=== PATIENT | female | born 1970 | race Caucasian/White ===

== ENCOUNTER → 2017-10-21 00:23 | Outpatient (CLI) | payer OTHER, SELFPAY ==
--- NOTE | 2017-10-21 15:55 | DI.REPORT_ITS ---
SYMPTOMS/DIAGNOSIS: HISTORY OF HYPERPARATHYROIDISM, Z86.39, HYPERCALCEMIA DEXA SCAN WITH [place]: The [place] image shows no evidence of compression fractures. The bone mineral density measurements of the lumbar spine correspond to a total T score of 0.7, in the normal range. The bone mineral density measurements of the left hip correspond to a total T score of 1.1 and a femoral neck T score of 0, in the normal range. The bone mineral density measurements of the left forearm correspond to a total T score of -0.6 and a T score of the distal third of -1.3 , in the osteopenic range. IMPRESSION: Mild osteopenia of the left forearm. Normal bone mineral density of the lumbar spine and left hip.
== END ==
PROVIDERS: PCP Family Medicine; Visit Provider Family Medicine
DX: M85.88 Other specified disorders of bone density and structure, other site (principal); E83.52 Hypercalcemia; Z86.39 Personal history of other endocrine, nutritional and metabolic disease
CPT/HCPCS: 77080

== ENCOUNTER 2017-11-23 01:29 | Outpatient (CLI) | payer OTHER, SELFPAY ==
--- NOTE | 2017-11-23 10:20 | DI.MRI_ITS ---
SYMPTOM/DIAGNOSIS: INTERNAL DERANGEMENT RT KNEE M23.91, ? MMT RIGHT KNEE MRI 11/23 MRI examination of the knee was performed according to the usual protocol. Note is made of an apparent subchondral cyst of the central portion of the proximal tibia. There is articular cartilage thinning of medial tibial femoral joint and patellofemoral joint particularly the medial and inferior portions of patellofemoral joint. Mild subchondral signal changes are noted in medial femoral condyle and medial tibial plateau presumably associated with degenerative change. No definite meniscal tear is seen. No cruciate ligament tear is seen. No significant collateral ligament injury identified. There is abnormal signal in inferior lateral patellar retinaculum which may represent a small tear or focus of inflammation. CONCLUSION: Degenerative changes involving patellofemoral joint and medial tibial femoral joint as described above. Question small focal tear of inferior lateral patellar retinaculum vs focal inflammation at this site.
== END 2017-11-23 01:49 ==
PROVIDERS: PCP Family Medicine; Visit Provider Student in an Organized Health Care Education/Training Program
DX: M23.91 Unspecified internal derangement of right knee (principal); M17.11 Unilateral primary osteoarthritis, right knee; M85.40 Solitary bone cyst, unspecified site
CPT/HCPCS: 73721

== ENCOUNTER 2017-12-27 14:37 | Outpatient (CLI) | payer OTHER, SELFPAY ==
--- NOTE | 2017-12-27 13:57 | DI.RAD_ITS ---
SYMPTOMS/DIAGNOSIS: RT KNEE PAIN RIGHT KNEE: Three views. Mild periarticular spurring is seen in the lateral femoral tibial joint and the patellofemoral joint. There is mild narrowing of the medial femoral tibial joint space. No acute fracture or dislocation is seen. There are densities seen in the suprapatellar joint consistent with loose bodies. No acute fracture or dislocation is identified. IMPRESSION: Mild degenerative changes of the right knee. Loose bodies within the joint space.
== END 2017-12-27 14:57 ==
PROVIDERS: PCP Family Medicine; Visit Provider Physician Assistant
DX: M25.561 Pain in right knee (principal); M17.11 Unilateral primary osteoarthritis, right knee; M23.41 Loose body in knee, right knee
CPT/HCPCS: 73562

== ENCOUNTER 2018-02-01 07:01 | Day surgery (SDC) | payer OTHER, SELFPAY ==
--- NOTE | 2018-02-01 06:54 | W.COLOREPORT ---
Date of service: 02/01/18 Time of Service: 08:48 Colonoscopy Report Date of procedure: 02/01/18 Pre-op diagnosis general: Screening colonoscopy Post-op diagnosis procedure note: other (diverticulosis) Procedure: Colonoscopy Surgeon: Aurora Walsh Anesthesia proc note operative: MAC (Elissa Mckee, CREDIT REVIEW MANAGER/ ASA 2) Estimated blood loss (mL): 0 Pathology: none sent Complications: None Disposition: same day Indications: Mrs. Turcios is a pleasant 48-year-old female who was seen in the office for a screening colonoscopy. This will be her first colonoscopy. Risks, benefits, complications were reviewed with her and she wished to proceed. No guarantees were given or implied. Prep: Miralax/Dulcolax Procedure Start Time: :48 Procedure End Time: :09 Retraction Time: 9 minutes Findings: Diverticulosis of descending and sigmoid colon. Procedure Description: After informed consent was obtained the patient was taken to the procedure room and placed in a left decubitous position. Monitors were applied and a time out was done. The patients name, date of , procedure, allergies to medications and metal in their body was reviewed. The patient was then sedated. Once sedated and comfortable a rectal exam was done. External exam was normal. Internal exam revealed a normal sphincter tone and no palpable masses. The scope was then introduced and retroflexed. No internal hemorrhoids were identified. The scope was then advanced to the cecum without difficulty. She did become bradycardiac as the scope was being advanced and she was given robinal and atropin. The TI and appendiceal orifice were identified. The prep was adequate. The scope was then slowly retracted over 9 minutes back into the rectum. The scope was removed and the patient was woken up and taken back to Same day surgery in stable condition. The patient tolerated the procedure well and there were no immediate complications. Follow up: The patient should follow up in 10 years unless they develop changes in bowel habits or other new gastrointestinal complaints.
--- NOTE | 2018-02-01 06:57 | COLE_ITS ---
Date of service: 02/01/18 Time of Service: 08:48 Colonoscopy Report Date of procedure: 02/01/18 Pre-op diagnosis general: Screening colonoscopy Post-op diagnosis procedure note: other (diverticulosis) Procedure: Colonoscopy Surgeon: Aurora Walsh Anesthesia proc note operative: MAC (Elissa Mckee, LEGAL REFEREE/ ASA 2) Estimated blood loss (mL): 0 Pathology: none sent Complications: None Disposition: same day Indications: Mrs. Turcios is a pleasant 48-year-old female who was seen in the office for a screening colonoscopy. This will be her first colonoscopy. Risks , benefits, complications were reviewed with her and she wished to proceed. No guarantees were given or implied. Prep: Miralax/Dulcolax Procedure Start Time: :48 Procedure End Time: :09 Retraction Time: 9 minutes Findings: Diverticulosis of descending and sigmoid colon. Procedure Description: After informed consent was obtained the patient was taken to the procedure room and placed in a left decubitous position. Monitors were applied and a time out was done. The patients name, date of , procedure, allergies to medications and metal in their body was reviewed. The patient was then sedated. Once sedated and comfortable a rectal exam was done. External exam was normal. Internal exam revealed a normal sphincter tone and no palpable masses. The scope was then introduced and retroflexed. No internal hemorrhoids were identified. The scope was then advanced to the cecum without difficulty. She did become bradycardiac as the scope was being advanced and she was given robinal and atropin. The TI and appendiceal orifice were identified. The prep was adequate. The scope was then slowly retracted over 9 minutes back into the rectum. The scope was removed and the patient was woken up and taken back to Same day surgery in stable condition. The patient tolerated the procedure well and there were no immediate complications. Follow up: The patient should follow up in 10 years unless they develop changes in bowel habits or other new gastrointestinal complaints.
--- NOTE | 2018-02-01 06:58 | PDOC.DSDIS_ITS ---
Discharge Plan Disposition Patient Disposition: HOME Condition: Good Discharge Details Reason For Visit: colonoscopy Attending Provider: Aurora Walsh Primary Care Provider: David Domingo Home Meds and New Rx's Prescriptions: Continue atenolol 50 MG tablet 50 mg PO DAILY Qty: 90 RF: 4 ibuprofen 200 mg Tablet 200 - 800 mg PO QID PRNRF: 0 Discharge Instructions Instructions: Colonoscopy (DC), Diverticulosis (DC) Additional Instructions: Findings: Diverticulosis of descending and sigmoid colon Follow up: 10 years New Medications: none Please call if you develop: fevers >101.5 Nausea or Vomiting Abdominal pain that is not transient 1. Because there will be medication in your system for the next 24 hours, you may feel a little sleepy. Your coordination will be affected. Therefore: a. Do not drive or operate dangerous equipment for 24 hours. b. Do not drink alcohol beverages for 24 hours (not even beer). c. Plan to go home and rest for the day. 2. Generally there are no restrictions on your activity after a day or so has gone by, but you may feel a bit fatigued for a few days. 3 After you arrive home you may have a light meal and return to a normal diet as you can tolerate it without feeling sick to your stomach. 4. After surgery, you may feel pain or discomfort. This should be only transient , but if it persists please contact your doctor. 5. If there are any questions regarding the findings of your procedure, please feel free to contact your doctor. 6. If you are unable to contact your doctor with a problem, contact the hospital at [phone]. 7. Continue all your regular medications unless directed otherwise. I understand the above instructions and have no questions. Signature of Patient or Responsible Adult Escort Date/Time Name of Responsible Adult Escort Signature of Nurse Date/Time Activity:: Activity as Tolerated Diet:: high fiber diet Discharge Orders Discharge Orders: Discharge Order (Routine); Ordered 02/01/18 Ordered By: Aurora Walsh DS: Diagnosis Discharge Diagnosis (1) S/P colonoscopy: Status: Acute (2) Diverticulosis: Status: Acute
--- NOTE | 2018-02-01 06:58 | W.PM.HP.N ---
Assessment and Plan (1) Encounter for screening colonoscopy: Current visit: Yes Status: Acute P\\ Colonoscopy under sedation Risks, benefits and complications have been reviewed. Complications include but are not limited to bleeding, pain, perforation, missed small lesion/polyp, sore throat, aspiration and adverse reaction to the medications. Questions were entertained and answered to their satisfaction and they wished to proceed. No guarantees were given or implied. Joy is here with her Brian to discuss a Screening Colonoscopy. This is her first Colonoscopy. She denies any melena, hematochezia, abdominal pain, unintentional weight loss, changes in bowel habits or family history of colon cancer. 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 pets and animals: No Smoking/Tobacco Use Status: Never alcohol intake: current alcohol intake frequency: a few times a month substance use type: does not use Surgical History Hysterectomy Meds Home Medications Medication Instructions Recorded Confirmed Type atenolol 50 mg PO DAILY #90 tab 08/23/17 02/01/18 Rx ibuprofen 200 - 800 mg PO QID PRN 01/28/18 02/01/18 History Allergies Allergy/AdvReac Type Severity Reaction Status Date / Time No Known Allergies Allergy Unverified 02/01/18 07:14 Exam Resp Effort & Inspection: normal respiratory effort Auscultation: clear to auscultation bilaterally Cardio Rate: regular rate Rhythm: regular rhythm Heart Sounds: no click, no gallops, no murmurs and no rubs
--- NOTE | 2018-02-01 07:01 | HPE_ITS ---
Assessment and Plan (1) Encounter for screening colonoscopy: Current visit: Yes Status: Acute P\\ Colonoscopy under sedation Risks, benefits and complications have been reviewed. Complications include but are not limited to bleeding, pain, perforation, missed small lesion/ polyp, sore throat, aspiration and adverse reaction to the medications. Questions were entertained and answered to their satisfaction and they wished to proceed. No guarantees were given or implied. Joy is here with her Brian to discuss a Screening Colonoscopy. This is her first Colonoscopy. She denies any melena, hematochezia, abdominal pain, unintentional weight loss, changes in bowel habits or family history of colon cancer. 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 pets and animals: No Smoking/Tobacco Use Status: Never alcohol intake: current alcohol intake frequency: a few times a month substance use type: does not use Surgical History Hysterectomy Meds Home Medications Medication Instructions Recorded Confirmed Type atenolol 50 mg PO DAILY #90 tab 08/23/17 02/01/18 Rx ibuprofen 200 - 800 mg PO QID PRN 01/28/18 02/01/18 History Allergies Allergy/AdvReac Type Severity Reaction Status Date / Time No Known Allergies Allergy Unverified 02/01/18 07:14 Exam Resp Effort & Inspection: normal respiratory effort Auscultation: clear to auscultation bilaterally Cardio Rate: regular rate Rhythm: regular rhythm Heart Sounds: no click, no gallops, no murmurs and no rubs
[2018-02-01 07:15] VITALS: BP 146/97; PULSE 53; RESP 16; TEMP 37.1; O2SAT 99
[2018-02-01] MEDS: Lactated Ringers 1,000 ML 80 ML IV (07:34)
[2018-02-01 09:45] VITALS: BP 119/77; PULSE 85; RESP 16; TEMP 37.1; O2SAT 99
== END 2018-02-01 10:17 | disposition home or self-care (01) ==
LOC: SUR 07:03
PROVIDERS: PCP Family Medicine; Visit Provider Surgery
PROC: 0DJD8ZZ Inspection of Lower Intestinal Tract, Via Natural or Artificial Opening Endoscopic (ICD-10-PCS; CPT 45378; principal; 2018-02-01 08:30)
DX: Z12.11 Encounter for screening for malignant neoplasm of colon (principal); R00.1 Bradycardia, unspecified; K57.30 Diverticulosis of large intestine without perforation or abscess without bleeding; I10 Essential (primary) hypertension
CPT/HCPCS: 45378; NC

== ENCOUNTER 2018-08-03 09:40 | Outpatient (CLI) | payer OTHER, SELFPAY ==
--- NOTE | 2018-08-03 09:37 | DI.RAD_ITS ---
SYMPTOM/DIAGNOSIS: OA RT KNEE BILATERAL LOWER EXTREMITIES: AP views of the lower extremities were obtained for leg length determination. Mild degenerative changes noted in both knees and hips.
== END 2018-08-03 10:00 ==
PROVIDERS: PCP Family Medicine; Visit Provider Student in an Organized Health Care Education/Training Program
DX: M17.0 Bilateral primary osteoarthritis of knee (principal); M16.0 Bilateral primary osteoarthritis of hip
CPT/HCPCS: 77073

== ENCOUNTER 2018-08-16 14:52 | Outpatient (CLI) | payer OTHER, SELFPAY ==
[2018-08-16 15:23] LABS: HCT 40.2 % (36.0-46.0); HGB 13.3 g/dL (12.0-15.5); Mean Corp. HGB Concentration 33.1 g/dL (32.0-36.0); Mean Corpuscular Hemoglobin 31.3 pg (27.0-33.0); Mean Corpuscular Volume 94.6 fL (80-95); Platelet Count 320 x1000/uL (130-400); RBC 4.25 m/cumm (4.00-5.20); White Blood Cell Count 6.97 k/cumm (4.4-10.8)
[2018-08-16 16:13] LABS: Anion Gap 10.1 mmol/L (3-11); BUN 13 mg/dL (7-18); CO2 26.9 mmol/L (21.0-32.0); CREATININE 1.02 mg/dL (0.55-1.02); Calcium 9.5 mg/dL (8.5-10.1); Chloride 103 mmol/L (98-107); Estimated GFR 57.36 (mL/min/1.73m2); Glucose 95 mg/dL (70-100); Potassium 4.3 mmol/L (3.5-5.1); Sodium 140 mmol/L (136-145)
== END 2018-08-16 15:12 ==
LOC: LBO 14:52 → DSU 14:59
PROVIDERS: PCP Family Medicine; Visit Provider Student in an Organized Health Care Education/Training Program
DX: M25.561 Pain in right knee (principal); M17.11 Unilateral primary osteoarthritis, right knee; Z01.812 Encounter for preprocedural laboratory examination; Z01.818 Encounter for other preprocedural examination
CPT/HCPCS: 36415; 80048; 85027

== ENCOUNTER 2018-08-30 06:04 | Observation (INO) | payer OTHER, SELFPAY ==
[2018-08-30] VITALS (13 sets, daily range): BP systolic 104–152; BP diastolic 67–100; PULSE 52–73; RESP 12–19; TEMP 36.5–37; O2SAT 97–100
[2018-08-30] MEDS: oxyCODONE-CR 10 MG TABCR PO (06:44)
[2018-08-30] MEDS: Gabapentin 300 MG CAP PO (06:45)
[2018-08-30] MEDS: Celecoxib 200 MG CAP 400 MG PO (06:45)
[2018-08-30] MEDS: Acetaminophen 500 MG TAB 1000 MG PO ×2 (06:45→13:25)
[2018-08-30] MEDS: Lactated Ringers 1,000 ML 80 ML IV ×2 (06:46→11:03)
[2018-08-30] MEDS: Bupivacaine LIPOSOME/PF 133 MG/10 ML VIAL IJ ×2 (07:20→08:45)
[2018-08-30] MEDS: Bupivacaine 0.25% Pres-Free 10 ML VIAL (07:20)
[2018-08-30] MEDS: ceFAZolin 2 GM/50 ML BAG IVPB (07:32)
[2018-08-30] MEDS: Ketorolac 30 MG/ML VIAL (08:45)
[2018-08-30] MEDS: Normal Saline 20 ML VIAL (08:45)
[2018-08-30] MEDS: Bupivacaine 0.25% Pres-Free 30 ML VIAL (08:45)
--- NOTE | 2018-08-30 11:16 | W.PM.OP ---
Date of service: 08/30/18 Time of Service: 10:16 Operative Note DATE OF PROCEDURE: 08/30/18 PRE-OP DIAGNOSIS: Right knee osteoarthritis POST-OP DIAGNOSIS: same PROCEDURE: Right Total Knee Replacement SURGEON: Taj Arellano PRESS BREAKER: Debra Hall ANESTHESIA: regional and spinal ESTIMATED BLOOD LOSS: 150 PATHOLOGY: none sent TOURNIQUET TIME: 33 COMPLICATIONS: None Patient was transported to: PACU Patient's condition: stable Implants: 1. Depuy Attune Posterior Stabilized Femoral Component, Size 5 narrow 2. Depuy Attune Fixed Platform Tibial Component, Size 3 3. Depuy Attune 5x5 mm fixed, Stabilized Poly 4. Depuy Attune Patellar Component, Size 32 mm Indications: I have seen Dinora in clinic for symptoms of RIGHT knee arthritis, confirmed with radiographic findings. Dinora has exhausted nonoperative methods and was having significant limitations in daily function and desired better function and less pain. I discussed the technical details of a knee replacement. I explained the risks of the procedure to include, but not limited to, bleeding, infection, pain, stiffness, fracture, damage to nerves and vessels, damage to muscles and tendons, loosening, need for repeat procedure, blood clot and cardiopulmonary demise. Despite these risks, Dinora elected to proceed. Findings: There was full-thickness cartilage loss over the medial femur and an area of the medial tibia as well as global chondromalacia of the lateral trochlea. Procedure Description: Dinora was greeted in the preoperative holding area where the correct side was identified and marked. The consent was reviewed with the patient and signed. The history and physical was updated. All questions were answered. Preoperative mediacations were administered: Acetaminophen 1000mg, Celebrex 400mg, Gabapentin 300mg, and Oxycontin 10mg. An adductor canal block was then administered by the anesthesia team in the PACU. Dinora was taken back to the operating room. A spinal anesthestic was then administered. The patient was placed into the supine position on the operating room table. A nonsterile tourniquet was placed high onto the leg but only used for cementing. Posts were placed for positioning during the procedure. All bony prominences were well padded. Prophylactic antibiotics in the form of cefazolin were administered. 1g of Tranxemic Acid was given intravenously within 30 minutes of incision. The right leg was then prepped with Chloraprep and draped in a standard fashion with impervious stockinette and extremity drape with Iodine impregnated skin protection. A timeout to confirm correct identity, side and site, procedure, allergies, anesthesia, and medical concerns was performed. With the knee in some flexion, a midline incision was made overlying the knee. Full thickness skin flaps were raised once the extensor mechanism was encountered. These were raised medially and laterally. Any bleeding was controlled with electrocautery. Once the extensor mechanism was fully exposed, a medial parapatellar arthrotomy was performed in a flexed position. All bleeding from the arthrotomy and the geniculate arteries was coagulated. A medial subperiosteal peel was performed with electrocautery to the midcoronal plane. The fat pad was removed while keeping the patellar tendon protected. The anterior distal femur synovium was removed for later visualization. The ACL and PCL were resected and the anterior horn of the lateral meniscus was transected. The knee was then flexed with the patella everted. Large osteophytes from the tibia were removed. Using a step drill, and based on preoperative templating, the femoral canal was entered. This was done with a step drill without any difficulty. The intramedullary distal femoral cut guide was inserted, set to a 5 degree valgus cut and 9mm cut thickness. The distal femoral cut guide was then held in position and pinned. With the soft tissues protected, the distal cut was performed. This was passed over a few times to ensure a planar cut. I then turned attention to the tibia. The extramedullary guide was placed onto the leg. The distal aspect was slid medial to adjust for position of center of ankle and stay in line with shaft of the tibia. Approximately 3-5 degrees of posterior slope was kept in the proximal cutting guide. The center of the guide was aligned with the PCL. The stylus was used to assess cut thickness. The medial side, most involved side, was set for a 4mm cut. This was then held in position and pinned into place with 2 additional pins and a cross pin for stability. The medial and lateral collateral ligaments were protected and the cut was performed. With this completed, it was assessed and noted to be of appropriate dimensions. The guide was removed. A spacer block was inserted and the knee was brought into extension. The 5 mm spacer block provided full extension, without hyperextension and with stability of both the medial and lateral collateral ligaments was assessed. The pins from the femur and the tibia were then removed. The distal femur was then sized. The anterior stylus was placed onto the lateral ridge of the anterior femur. This indicated a size 5 narrow femur. The external rotation of the guide was adjusted to 5 degrees to match the epicondylar axis, perpendicular to Raul?s line. The 4-in-1 cutting guide was the placed. The posterior medial femur cut was evaluated and appeared of good thickness. The spacer block was inserted underneath the cutting guide and stability was confirmed in 90 degrees of flexion. An emanuel wing was used to confirm appropriate position of the anterior cut to avoid notching. This cutting guide was ensured to be flush on the cut surface and then pinned into place with headed pins. While protecting the soft tissues, quad tendon, and collateral ligaments, the anterior and posterior cuts were performed with a saw. The central two pins were removed and the posterior and anterior chamfers were cut next. The notch-cutting guide was placed. This was pinned to lateralize the femoral component as much as possible while keeping it flush on the cut surface. This was then pinned into position. A reciprocating saw was used to make the notch cut. A rasp smoothed the cut surfaces. A trial posterior stabilized femoral component was then inserted, impacted down to the cut surfaces, and the lug holes were drilled. A provisional trial tibial component was placed and the knee was brought through range of motion. There was noted to be excellent extension and flexion. There was no significant instability. The patella was tracking without thumbs. The tibial cut surface was fully exposed. The medial and lateral menisci were removed. The tibia was then sized as a 3. The tibia had been previously marked during trialing to correspond to the center of the tibial component to help with rotation. The trial was aligned to this debra, approximately rotated to the medial 1/3rd of the tibial tubercle. The trial was pinned into place. The tibia was prepared with a reamer and a keel punch. The knee was then brought into extension and the patella was measured as 21 mm. Using the patellar clamp and cut guide, this was resected to a flat surface with at least 13mm of thickness remaining. The size 32 patella fit the best. This was oriented and then clamped into position. The lugs were drilled. The trial components were removed. The final components, except for the polyethylene were opened on the back table. The periosteal and capsular tissues, especially posteriorly, around the knee were then systematically injected with a periarticular cocktail consisting of 50cc 0.25% Marcaine, 30mg Ketorolac, 20cc of Exparal and 50cc of injectable saline. The tourniquet was then inflated to 275mmHg. The knee was thoroughly irrigated with a pulse lavage and dried. On the back table, with the implants opened, the cement was mixed. 2 batches of antibiotic laden cement were prepared with vacuum assistance. After the cement was ready a small amount was placed on to the back side of the tibial component at the keel. A small amount was placed onto the posterior flange of the femur. Cement was manual pressurized and impregnated into the cut surface of the tibia. The tibial component was then inserted into the cut surface and impacted into position. Excess cement was removed and the component was reimpacted. Again, excess cement was removed and our attention was then turned to the femur. The femoral cut surface was once again dried and cement was manually impacted into the cut surface. The femoral component was lined with the lug holes and impacted. Excess cement was removed. It was ensured to be down against the cut surface. The trial polyethylene was then inserted and the leg was brought out into full extension for the duration of the cement curing process, approximately 15min. Cement was lastly manually impacted into the cut surface of the patella and the patellar button was clamped into position and held. During this process attention was turned to the gutters of the knee and for all interfaces for any excess cement. After the cement had finally cured, approximately 15min, the clamp was removed from the patella and the knee was taken through range of motion. A size 5 mm polyethylene component provided the best range of motion and stability with less than 2mm gapping with medial and lateral stress and full extension without significant hyperextension. The patella was tracking with a no-thumbs technique. The trial poly was removed and once again the knee was checked for any loose, excess, or errant cement. The poly component was then inserted and impacted into position after cleaning and drying the tibial tray. The capsule was then reapproximated with a No. 1 Vicryl at multiple locations. The capsule was finally closed with a No. 2 Stratafix, barbed suture. The tourniquet was then released and the arthrotomy appeared watertight without significant bleeding. The second dosing of 1g TXA was started. Deep tissues were then reapproximated with 0 Vicryl and 2-0 Vicryl. The skin was closed with a running 3-0 Monocryl in a subcuticular fashion. This was reinforced with skin glue. A Mepilex silver dressing was applied along with a [id number] ANETA wrap. A CryoCuff was applied. Dinora was transferred to the hospital bed without difficulty an suffering no apparent complication. Dinora has a good prognosis. Physical therapy will start today and without restrictions, weight-bearing as tolerated. Aspirin 81mg BID will be used for DVT prophylaxis.
--- NOTE | 2018-08-30 12:36 | PT.INIE ---
Date of service: 08/30/18 Time of Service: 11:31 PT Notes Inpatient Physical Therapy Evaluation Date: 08/30/2018 Referring Doctor: Taj Arellano MD PT Orders: PT CONSULT: Status post right TKA Precautions: Fall. Standard. WBAT on R. Patient Profile/Admitting Diagnosis: Patient is a 48-year-old female with primary unilateral osteoarthritis of right knee status post right total knee arthroplasty on posterior Perative day 0. PMHX: Medical History Viral illness (Acute) Primary localized osteoarthritis of right knee (Chronic) Diverticulosis (Acute) Vertigo (Chronic) Paroxysmal atrial fibrillation (Chronic 08/23/17) Essential hypertension (Chronic 08/27/17) Surgical History Parathyroid adenoma (Resolved) History of breast biopsy (Acute) Status post arthroscopic surgery of left knee (Acute) Status post right rotator cuff repair (Acute) Hysterectomy S/P colonoscopy (Acute ~02/01/18) Social History/Home Situation: Patient lives with Brian in a 2-floor house with 3 steps to enter that leads onto a porch. She reports that she has a flight of stairs that leads on to the second floor of their house where their bedroom is. However, she states that she will be using the gastrum on the first floor when she goes home from this hospital. She is independent with all aspects of ADLs with without the need for an assistive ambulatory device nor adaptive equipment. 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 Current Functional Limitations: Need for assistance with performance of transfer and ambulation tasks using FWW Equipment Owned/DME: FWW Subjective: Patient is agreeable to a PT consult and treatment today. She reports stinging/burning sensation on her right knee Especially with movement that subsides with rest. She denies dizziness, headache, and chest pain throughout physical therapy session today. She reports that sensation on her gluteal areas are diminished. Objective: General Observation: Patient seen resting in bed. Cryo/Cuff on right knee. ANETA wraps on right knee. LAMBERT stocking on left leg. Anti-DVT pump on left leg. Mcnair catheter in place. IV in left UE. Mental Status: Alert and oriented x 4 Pain: 1/10 at rest on the right knee, 2/10 with movement. ROM: Right Upper Extremity: Shoulder Flexion WFL. Shoulder abduction WFL. Elbow flexion WFL. Wrist flexion WFL. Functional opening and closing of hand WFL. Left Upper Extremity: Shoulder Flexion WFL. Shoulder abduction WFL. Elbow flexion WFL. Wrist flexion WFL. Functional opening and closing of hand WFL. Right Lower Extremity: Hip flexion 0-100. Hip abduction WFL. Knee flexion 0-100 with end range limited by ANETA wraps and mild discomfort. Ankle dorsiflexion WFL. Ankle plantarflexion WFL. Left Lower Extremity: Hip flexion WFL. Hip abduction WFL. Knee flexion WFL. Ankle dorsiflexion WFL. Ankle plantarflexion WFL. Strength: Right Upper Extremity: Shoulder flexors 5/5. Shoulder abductors 5/5. Elbow flexors 5/5. Elbow extensors 5/5. [employer] strong. Left Upper Extremity: Shoulder flexors 5/5. Shoulder abductors 5/5. Elbow flexors 5/5. Elbow extensors 5/5. [employer] strong. Right Lower Extremity: Hip flexors 4-/5. Hip abductors 4/5. Knee flexors 3-/5. Knee extensors 3+/5. Ankle dorsiflexors 5/5. Ankle plantarflexors 5/5. Left Lower Extremity:Hip flexors 5/5. Hip abductors 5/5. Knee flexors 5/5. Knee extensors 5/5. Ankle dorsiflexors 5/5. Ankle plantarflexors 5/5. Sensation: Intact to BLE as to pain and pressure. Diminished on bilateral gluteal areas due to post anesthesia effects. Bed Mobility/Transfers: Supine to sit CGA with head of bed elevated to 30 degrees Sit to supine CGA with head of bed elevated to 30 degrees Sit to stand CGA using both hands for support, with FWW Stand to sit CGA using both hands for support, with FWW Bed to chair CGA using both hands for support, with FWW Chair to bed CGA using both hands for support, with FWW Gait: Patient was able to tolerate in room ambulation of 5-7 steps forward +1 turn +2 back steps using FWW with WBAT on right LE. Minimal verbal cues were required for proper hand placement, walker management, and safe gait pattern. Decreased step height and length on her right LE noted with decreased gait velocity due to postoperative status and post anesthesia effects. Balance: Static Sitting: Good Dynamic Sitting: Good Static Standing: Fair Dynamic Standing: Fair Special Tests: Mobility Limitations Standardized Measure [employer] AM-PAC 6 clicks Basic Mobility Inpatient Short Form: Raw Score: 17 CMS Score: 51% deficit Informed Consent/Education: Patient instructed in purpose of PT consult and plan of care. Assessment: Patient is a 48-year-old female with primary unilateral osteoarthritis of right knee status post right total knee arthroplasty. Patient presents with clinical signs and symptoms consistent with current/admitting diagnoses and postoperative status that have resulted to mobility limitations, gait instability, generalized weakness, and impairment of motor control as demonstrated by the following impairment level findings: 1. Decreased strength to R knee major muscle groups 2. Impaired sitting/standing balance 3. Impaired activity tolerance 4. Limitation of joint range of motion in R knee Impairments are contributing to the following functional limitations: 1. Dependent bed mobility skills 2. Increased dependence with transfers 3. Inability to safely ambulate without assistive device and physical assistance 4. Increase completion time for mobility ADL performance 5. Increased fall risk 6. Inability to negotiate steps alone safely Patient is assessed as a [id number] moderate complexity based on the following: History: Patient is a 48-year-old female with primary unilateral osteoarthritis of right knee status post right total knee arthroplasty Examination: Underlying impairments and functional limitations as noted above Presentation:Evolving Decision Makin Moderate complexity Goals: Goals X1 week 1. Supine-Sit independent 2. Sit-Supine independent 3. Sit-Stand independent 4. Stand-Sit independent 5. Bed-Chair independent 6. Chair-Bed independent 7. Independent gait on level surface with use of least restrictive device for at least 200 feet without report of pain nor dyspnea 8. Independent stair negotiation while holding onto bilateral rails for at least 10 steps without report of pain nor dyspnea 9. Independent with home exercise program 10. Good static and dynamic standing balance/tolerance Plan of Care/Treatment Plan: 1-2x/day, 7 days/week x 1 week. Plan of care has been reviewed with the VALIDATION ENGINEER providing the service under Physical Therapy direction. Initiate Physical Therapy intervention for strengthening, bed mobility, transfers, gait, stairs, balance training, use of assistive device. DISCHARGE RECOMMENDATIONS: No anticipated equipment needs at this time. Patient may benefit from outpatient physical therapy services per orthopedic surgeon's protocol in order to facilitate return to vocational activities. TREATMENT CODE/TIME: 31600 x 33 minutes beginning at 11:31 AM. Thank you very much for this referral. Lizeth Chamorro PT, DPT, CLT [facility]
--- NOTE | 2018-08-30 12:57 | IN_ITS ---
Date of service: 08/30/18 Time of Service: 11:31 PT Notes Inpatient Physical Therapy Evaluation Date: 08/30/2018 Referring Doctor: Taj Arellano MD PT Orders: PT CONSULT: Status post right TKA Precautions: Fall. Standard. WBAT on R. Patient Profile/Admitting Diagnosis: Patient is a 48-year-old female with primary unilateral osteoarthritis of right knee status post right total knee arthroplasty on posterior Perative day 0. PMHX: Medical History Viral illness (Acute) Primary localized osteoarthritis of right knee (Chronic) Diverticulosis (Acute) Vertigo (Chronic) Paroxysmal atrial fibrillation (Chronic 08/23/17) Essential hypertension (Chronic 08/27/17) Surgical History Parathyroid adenoma (Resolved) History of breast biopsy (Acute) Status post arthroscopic surgery of left knee (Acute) Status post right rotator cuff repair (Acute) Hysterectomy S/P colonoscopy (Acute ~02/01/18) Social History/Home Situation: Patient lives with Brian in a 2-floor house with 3 steps to enter that leads onto a porch. She reports that she has a flight of stairs that leads on to the second floor of their house where their bedroom is. However, she states that she will be using the gastrum on the first floor when she goes home from this hospital. She is independent with all aspects of ADLs with without the need for an assistive ambulatory device nor adaptive equipment. 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 Current Functional Limitations: Need for assistance with performance of transfer and ambulation tasks using FWW Equipment Owned/DME: FWW Subjective: Patient is agreeable to a PT consult and treatment today. She reports stinging/burning sensation on her right knee Especially with movement that subsides with rest. She denies dizziness, headache, and chest pain throughout physical therapy session today. She reports that sensation on her gluteal areas are diminished. Objective: General Observation: Patient seen resting in bed. Cryo/Cuff on right knee. ANETA wraps on right knee. LAMBERT stocking on left leg. Anti-DVT pump on left leg. Mcnair catheter in place. IV in left UE. Mental Status: Alert and oriented x 4 Pain: 1/10 at rest on the right knee, 2/10 with movement. ROM: Right Upper Extremity: Shoulder Flexion WFL. Shoulder abduction WFL. Elbow flexion WFL. Wrist flexion WFL. Functional opening and closing of hand WFL. Left Upper Extremity: Shoulder Flexion WFL. Shoulder abduction WFL. Elbow flexion WFL. Wrist flexion WFL. Functional opening and closing of hand WFL. Right Lower Extremity: Hip flexion 0-100. Hip abduction WFL. Knee flexion 0-100 with end range limited by ANETA wraps and mild discomfort. Ankle dorsiflexion WFL. Ankle plantarflexion WFL. Left Lower Extremity: Hip flexion WFL. Hip abduction WFL. Knee flexion WFL. Ankle dorsiflexion WFL. Ankle plantarflexion WFL. Strength: Right Upper Extremity: Shoulder flexors 5/5. Shoulder abductors 5/5. Elbow flexors 5/5. Elbow extensors 5/5. [employer] Floor [employer] strong. Left Upper Extremity: Shoulder flexors 5/5. Shoulder abductors 5/5. Elbow flexors 5/5. Elbow extensors 5/5. [employer] Services Floor Tech strong. Right Lower Extremity: Hip flexors 4-/5. Hip abductors 4/5. Knee flexors 3-/5. Knee extensors 3+/5. Ankle dorsiflexors 5/5. Ankle plantarflexors 5/5. Left Lower Extremity:Hip flexors 5/5. Hip abductors 5/5. Knee flexors 5/5. Knee extensors 5/5. Ankle dorsiflexors 5/5. Ankle plantarflexors 5/5. Sensation: Intact to BLE as to pain and pressure. Diminished on bilateral gluteal areas due to post anesthesia effects. Bed Mobility/Transfers: Supine to sit CGA with head of bed elevated to 30 degrees Sit to supine CGA with head of bed elevated to 30 degrees Sit to stand CGA using both hands for support, with FWW Stand to sit CGA using both hands for support, with FWW Bed to chair CGA using both hands for support, with FWW Chair to bed CGA using both hands for support, with FWW Gait: Patient was able to tolerate in room ambulation of 5-7 steps forward +1 turn +2 back steps using FWW with WBAT on right LE. Minimal verbal cues were required for proper hand placement, walker management, and safe gait pattern. Decreased step height and length on her right LE noted with decreased gait [facility] due to postoperative status and post anesthesia effects. Balance: Static Sitting: Good Dynamic Sitting: Good Static Standing: Fair Dynamic Standing: Fair Special Tests: Mobility Limitations Standardized Measure [facility] AM-PAC 6 clicks Basic Mobility Inpatient Short Form: Raw Score: 17 CMS Score: 51% deficit Informed Consent/Education: Patient instructed in purpose of PT consult and plan of care. Assessment: Patient is a 48-year-old female with primary unilateral osteoarthritis of right knee status post right total knee arthroplasty. Patient presents with clinical signs and symptoms consistent with current/admitting diagnoses and postoperative status that have resulted to mobility limitations, gait instability, generalized weakness, and impairment of motor control as demonstrated by the following impairment level findings: 1. Decreased strength to R knee major muscle groups 2. Impaired sitting/standing balance 3. Impaired activity tolerance 4. Limitation of joint range of motion in R knee Impairments are contributing to the following functional limitations: 1. Dependent bed mobility skills 2. Increased dependence with transfers 3. Inability to safely ambulate without assistive device and physical assistance 4. Increase completion time for mobility ADL performance 5. Increased fall risk 6. Inability to negotiate steps alone safely Patient is assessed as a 64836 moderate complexity based on the following: History: Patient is a 48-year-old female with primary unilateral osteoarthritis of right knee status post right total knee arthroplasty Examination: Underlying impairments and functional limitations as noted above Presentation:Evolving Decision Makin Moderate complexity Goals: Goals X1 week 1. Supine-Sit independent 2. Sit-Supine independent 3. Sit-Stand independent 4. Stand-Sit independent 5. Bed-Chair independent 6. Chair-Bed independent 7. Independent gait on level surface with use of least restrictive device for at least 200 feet without report of pain nor dyspnea 8. Independent stair negotiation while holding onto bilateral rails for at least 10 steps without report of pain nor dyspnea 9. Independent with home exercise program 10. Good static and dynamic standing balance/tolerance Plan of Care/Treatment Plan: 1-2x/day, 7 days/week x 1 week. Plan of care has been reviewed with the PERIPHERAL EDP EQUIPMENT OPERATOR providing the service under Physical Therapy direction. Initiate Physical Therapy intervention for strengthening, bed mobility, transfers, gait, stairs, balance training, use of assistive device. DISCHARGE RECOMMENDATIONS: No anticipated equipment needs at this time. Patient may benefit from outpatient physical therapy services per orthopedic surgeon's protocol in order to facilitate return to vocational activities. TREATMENT CODE/TIME: 40494 x 33 minutes beginning at 11:31 AM. Thank you very much for this referral. Lizeth Chamorro PT, DPT, CLT [facility]
--- NOTE | 2018-08-30 13:05 | NUR.NOTE ---
1030 Pt transferred from PACU to rm 225 via stretcher, report given by spring Avilez mat used for transfer, tolerated well. A&O x4, rates right knee pain 1/10, Cryo cuff on, +pp/CSM. Incentive spirometry teaching given, will ctm.
[2018-08-30] MEDS: oxyCODONE 5 MG TAB PO (13:24)
--- NOTE | 2018-08-30 14:15 | PT.INTREAT ---
Date of service: 08/30/18 Time of Service: 14:15 PT Notes 08/30/18 SUBJECTIVE: Pt stating she is doing well. She has been doing leg lifts in her bed periodically. OBJECTIVE: Supine in bed. Agreeable to PT treatment. TRANSFERS Supine to sit: SBA Sit to supine: SBA Sit to stand: SBA Stand to sit: SBA GAIT Device: FWW Weight bearing: AT R Assist: SBA Distance: 75' Deviation: Step through pattern THEREX: Light muscle setting and LE strengthening as noted on flow sheet. Able to perform SLR actively x 10. See flow sheet. ASSESSMENT: Tolerating functional mobility well with minimal discomfort. Minor cueing provided for walker management and transfers. PLAN: Continue per POC. Treatment time: 15 Breanna Gonzales PTA
--- NOTE | 2018-08-30 15:57 | DSE_ITS ---
Date of service: 08/30/18 Time of Service: 15:56 DS: Diagnosis Discharge Diagnosis (1) Primary localized osteoarthritis of right knee: Status: Chronic Discharge Plan Disposition Patient Disposition: HOME Condition: Good Discharge Details Reason For Visit: S/P R TKA Admit Date/Time: 08/30/18 06:04 Admit Provider: Taj Arellano Attending Provider: Taj Arellano Primary Care Provider: David Domingo [facility] Hospital Course: Patient was admitted to the medical/surgical floor following the procedure. It was tolerated well without any notable medical, surgical, or anesthetic complications. Mobilization began postoperatively. The zuniga catheter was removed and voiding spontaneously. Vitals were stable. Physical therapy worked with the patient and was cleared for discharge home. No acute medical issues. Home Meds and New Rx's Prescriptions: New celecoxib 200 mg capsule 200 mg PO BID PRN (Reason: pain) Qty: 60 RF: 1 aspirin 81 mg tablet,delayed release (DR/EC) 81 mg PO BID Qty: 60 RF: 0 acetaminophen 500 mg tablet 1,000 mg PO Q8H PRN (Reason: pain) Qty: 90 RF: 3 pantoprazole 40 mg tablet,delayed release (DR/EC) 40 mg PO DAILY Qty: 30 RF: 0 oxycodone 5 mg tablet 5 mg PO Q4H Qty: 18 RF: 0 Continued meclizine 25 mg tablet 25 mg PO BID-TID PRN (Reason: dizziness) Qty: 20 RF: 0 atenolol 50 MG tablet 50 mg PO DAILY Qty: 90 RF: 4 multivitamin Capsule 1 cap PO DAILY RF: 0 Discontinued ibuprofen 200 mg Tablet 200 - 800 mg PO QID PRNRF: 0 acetaminophen [Acetaminophen Extra Strength] 500 mg Tablet 1,000 mg PO PRN PRNRF: 0 Discharge Instructions Additional Instructions: Dr. Arellano?s Total Knee Discharge Instructions Activity: The most important activity is to walk. You should try to take short walks a few times a day. It is important that when resting you work on keeping the knee straight. Avoid putting a pillow behind the knee as this will encourage flexion. Work on range of motion exercises as provided by Physical Therapy. - Start outpatient physical therapy within 2 weeks. - You should wear the LAMBERT hose on both legs for 4 weeks. Dressing: Keep the surgical dressing in place for at least one week. After the first week it may be removed and replace with light gauze and tape or nothing. It may get wet after 3 days but avoid soaking the dressing. If it gets wet, just lightly pat dry. Medications: - You should take Tylenol and anti-inflammatory (Celebrex) as your primary pain control medications - You have been prescribed a stronger pain medication (Oxycodone) for breakthrough pain, take as needed as prescribed. - You will be taking Aspirin 81mg twice a day for DVT prevention unless instructed otherwise. - If you have constipation you should take Colace or Miralax (both [id number]). It takes most people 3-4 days to have a bowel movement. Follow-up: 2 weeks Referrals: Taj Arellano MD [ [facility] STAFF PHYSICIAN] - Activity:: Activity as Tolerated Equipment/Supplies:: Walker Diet:: As Tolerated Discharge Orders Discharge Orders: Discharge Order (Routine); Ordered 08/30/18 Ordered By: Taj Arellano DS: Data Vitals/I&O Vitals and I&O: Vital Signs Temperature 36.6 C 08/30/18 13:15 Temperature Source Tympanic 08/30/18 13:15 Pulse 62 08/30/18 13:15 Pulse Rhythm Regular 08/30/18 06:16 Respiratory Rate 16 08/30/18 14:25 Respiratory Effort 08/30/18 06:16 Respiratory Depth Normal 08/30/18 06:16 Respiratory Pattern Normal 08/30/18 06:16 Blood Pressure 104/70 08/30/18 13:15 Pulse Oximetry 98 08/30/18 13:15 Respiratory End-tidal CO2 30 08/30/18 10:20 Oxygen Delivery Method Room Air 08/30/18 13:15 Oxygen Flow Rate 0 08/30/18 13:15 Pain Level 1 08/30/18 14:25 Intake & Output 08/29/18 08/30/18 08/30/18 23:59 11:59 23:59 Intake Total 823.333 / 1063.333 240 / 1063.333 Output Total 575 / 575 Balance 248.333 / 488.333 240 / 488.333 Weight 88.9 kg Intake: IV 823.333 / 823.333 Oral 240 / 240 Output: Urine 425 / 425 Estimated Blood Loss 150 / 150 Other: Urine Color Yellow Pale Yellow Urine Appearance Clear Clear Emesis Description None PFSH Medical History Viral illness (Acute) Primary localized osteoarthritis of right knee (Chronic) Diverticulosis (Acute) Vertigo (Chronic) Paroxysmal atrial fibrillation (Chronic 08/23/17) Essential hypertension (Chronic 08/27/17) Surgical History Parathyroid adenoma (Resolved) History of breast biopsy (Acute) Status post arthroscopic surgery of left knee (Acute) Status post right rotator cuff repair (Acute) Hysterectomy S/P colonoscopy (Acute ~02/01/18) Family History Mother Hypertension Osteoarthritis Father Unknown family medical history Sister Osteoarthritis Social History Smoking/Tobacco Use Status: Never Alcohol Intake: current Alcohol Intake frequency: a few times a month Drug use: Never Substance use type: does not use Household members: spouse 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
--- NOTE | 2018-08-30 18:03 | NUR.NOTE ---
1630: Pt being discharged, zuniga d'cd able to void with out difficulty and bladder scan 0ml. Discharge instructions reviewed with pt and , states understanding. Wheelchair used for discharge off floor to house pharmacy for prescriptions.
--- NOTE | 2018-08-31 09:09 | INDS_ITS ---
Date of service: 08/31/18 Time of Service: 09:06 PT Notes Inpatient Physical Therapy Discharge Summary Dates: 08/31/2018 Dates of Service: 08/31/2018 only This is a clinical summary of care provided on the duration of dates listed above. No charge was made in the completion of this documentation. Referring Doctor: Taj Arellano MD PT Orders: PT CONSULT: Status post right TKA Precautions: Fall. Standard. WBAT on R. Patient Profile/Admitting Diagnosis: Patient is a 48-year-old female with primary unilateral osteoarthritis of right knee status post right total knee arthroplasty on posterior Perative day 0. PMHX: Medical History Viral illness (Acute) Primary localized osteoarthritis of right knee (Chronic) Diverticulosis (Acute) Vertigo (Chronic) Paroxysmal atrial fibrillation (Chronic 08/23/17) Essential hypertension (Chronic 08/27/17) Surgical History Parathyroid adenoma (Resolved) History of breast biopsy (Acute) Status post arthroscopic surgery of left knee (Acute) Status post right rotator cuff repair (Acute) Hysterectomy S/P colonoscopy (Acute ~02/01/18) Social History/Home Situation: Patient lives with Brian in a 2-floor house with 3 steps to enter that leads onto a porch. She reports that she has a flight of stairs that leads on to the second floor of their house where their bedroom is. However, she states that she will be using the gastrum on the first floor when she goes home from this hospital. She is independent with all aspects of ADLs with without the need for an assistive ambulatory device nor adaptive equipment. 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 Current Functional Limitations: Need for assistance with performance of transfer and ambulation tasks using FWW Equipment Owned/DME: FWW Subjective: NT Objective: General Observation: NT Mental Status: NT Pain: NT ROM: Right Upper Extremity: Shoulder Flexion WFL. Shoulder abduction WFL. Elbow flexion WFL. Wrist flexion WFL. Functional opening and closing of hand WFL. Left Upper Extremity: Shoulder Flexion WFL. Shoulder abduction WFL. Elbow flexion WFL. Wrist flexion WFL. Functional opening and closing of hand WFL. Right Lower Extremity: Hip flexion 0-100. Hip abduction WFL. Knee flexion 0-100 with end range limited by ANETA wraps and mild discomfort. Ankle dorsiflexion WFL. Ankle plantarflexion WFL. Left Lower Extremity: Hip flexion WFL. Hip abduction WFL. Knee flexion WFL. Ankle dorsiflexion WFL. Ankle plantarflexion WFL. Strength: Right Upper Extremity: Shoulder flexors 5/5. Shoulder abductors 5/5. Elbow flexors 5/5. Elbow extensors 5/5. Population Health Manager strong. Left Upper Extremity: Shoulder flexors 5/5. Shoulder abductors 5/5. Elbow flexors 5/5. Elbow extensors 5/5. Population Health Manager strong. Right Lower Extremity: Hip flexors 4-/5. Hip abductors 4/5. Knee flexors 3-/5. Knee extensors 3+/5. Ankle dorsiflexors 5/5. Ankle plantarflexors 5/5. Left Lower Extremity:Hip flexors 5/5. Hip abductors 5/5. Knee flexors 5/5. Knee extensors 5/5. Ankle dorsiflexors 5/5. Ankle plantarflexors 5/5. Sensation: Intact to BLE as to pain and pressure. Diminished on bilateral gluteal areas due to post anesthesia effects. Bed Mobility/Transfers: Supine to sit CGA with head of bed elevated to 30 degrees Sit to supine CGA with head of bed elevated to 30 degrees Sit to stand CGA using both hands for support, with FWW Stand to sit CGA using both hands for support, with FWW Bed to chair CGA using both hands for support, with FWW Chair to bed CGA using both hands for support, with FWW Gait: Patient was able to tolerate in room ambulation of 5-7 steps forward +1 turn +2 back steps using FWW with WBAT on right LE. Minimal verbal cues were required for proper hand placement, walker management, and safe gait pattern. Decreased step height and length on her right LE noted with decreased gait velocity due to postoperative status and post anesthesia effects. Balance: Static Sitting: Good Dynamic Sitting: Good Static Standing: Fair Dynamic Standing: Fair Special Tests: Mobility Limitations Standardized Measure [facility] 6 clicks Basic Mobility Inpatient Short Form: Raw Score: 17 CMS Score: 51% deficit Assessment: Patient is a 48-year-old female with primary unilateral osteoarthritis of right knee status post right total knee arthroplasty. Patient presents with clinical signs and symptoms consistent with current/admitting diagnoses and postoperative status that have resulted to mobility limitations, gait instability, generalized weakness, and impairment of motor control as demonstrated by the following impairment level findings: 1. Decreased strength to R knee major muscle groups 2. Impaired sitting/standing balance 3. Impaired activity tolerance 4. Limitation of joint range of motion in R knee Impairments are contributing to the following functional limitations: 1. Dependent bed mobility skills 2. Increased dependence with transfers 3. Inability to safely ambulate without assistive device and physical assistance 4. Increase completion time for mobility ADL performance 5. Increased fall risk 6. Inability to negotiate steps alone safely Patient is assessed as a 13811 moderate complexity based on the following: History: Patient is a 48-year-old female with primary unilateral osteoarthritis of right knee status post right total knee arthroplasty Examination: Underlying impairments and functional limitations as noted above Presentation:Evolving Decision Makin Moderate complexity Goals: Goals X1 week 1. Supine-Sit independent MET 2. Sit-Supine independent MET 3. Sit-Stand independent NOT MET 4. Stand-Sit independent NOT MET 5. Bed-Chair independent NOT MET 6. Chair-Bed independent NOT MET 7. Independent gait on level surface with use of least restrictive device for at least 200 feet without report of pain nor dyspnea NOT MET 8. Independent stair negotiation while holding onto bilateral rails for at least 10 steps without report of pain nor dyspnea NOT MET 9. Independent with home exercise program NOT MET 10. Good static and dynamic standing balance/tolerance NOT MET DISCHARGE RECOMMENDATIONS: No anticipated equipment needs at this time. Patient may benefit from outpatient physical therapy services per orthopedic surgeon's protocol in order to facilitate return to vocational activities. TREATMENT CODE/TIME: CHRAMAINE Thank you very much for this referral. Lizeth Chamorro PT, DPT, CLT [facility]
== END 2018-08-30 17:20 | disposition home or self-care (01) ==
LOC: MS 15:56 → PDS 08-31 07:40
PROVIDERS: Admitting Provider Student in an Organized Health Care Education/Training Program; PCP Family Medicine; Visit Provider Student in an Organized Health Care Education/Training Program
PROC: 0SRC0J9 Replacement of Right Knee Joint with Synthetic Substitute, Cemented, Open Approach (ICD-10-PCS; CPT 27447; principal; 2018-08-30 07:30)
DX: M17.11 Unilateral primary osteoarthritis, right knee (principal); Z96.651 Presence of right artificial knee joint; M25.561 Pain in right knee; M85.461 Solitary bone cyst, right tibia and fibula; I10 Essential (primary) hypertension; I48.0 Paroxysmal atrial fibrillation
CPT/HCPCS: 27447; C1776; 76942; 97162; 97530; NC; J0690; J1885

== ENCOUNTER 2018-09-14 11:21 | Outpatient (CLI) | payer OTHER, SELFPAY ==
--- NOTE | 2018-09-14 11:16 | DI.RAD_ITS ---
SYMPTOMS/DIAGNOSIS: FIRST POST OP RT TKA BILATERAL LOWER EXTREMITIES: AP views of the lower extremities were obtained for leg length determination. There is a total knee joint replacement in position on the right. LATERAL RIGHT KNEE: Lateral view of the knee was obtained and shows total knee joint replacement in position. The components appear well seated. No other bony abnormality is seen.
== END 2018-09-14 11:41 ==
PROVIDERS: PCP Family Medicine; Visit Provider Student in an Organized Health Care Education/Training Program
DX: Z96.651 Presence of right artificial knee joint (principal); Z47.1 Aftercare following joint replacement surgery
CPT/HCPCS: 73560; 77073

== ENCOUNTER 2018-10-28 12:34 | Outpatient (CLI) | payer OTHER, SELFPAY ==
--- NOTE | 2018-10-28 11:04 | DI.CT_ITS ---
SYMPTOMS/DIAGNOSIS: STONE EVALUATION, URETERAL STONE, N20.[address]: CT examination of the abdomen and pelvis was performed without contrast material utilizing renal colic protocol. Images obtained through the lung bases are unremarkable. The visualized portions of the liver and spleen are unremarkable. There appears to be a small gallstone. No biliary dilatation seen. Pancreas is unremarkable in appearance. The abdominal aorta is of normal diameter. No abdominal or pelvic adenopathy seen. Tiny fat containing umbilical hernia noted. No other significant urinary tract calcification. The adrenals are unremarkable in appearance bilaterally. Right kidney contains solitary 1-2 mm in diameter mid pole calculus. Left kidney contains multiple calculi in both upper and lower poles largest measuring about 2 mm in diameter. No evidence of hydronephrosis or ureterolithiasis on the left. On the right there are multiple calculi seen adjacent to the ureterovesical junction, these are probably mostly phleboliths but I can not absolutely exclude an intraureteral calculus at this site. Correlation with CT urogram suggested to definitively rule in or out a distal right ureteral calculus. No intravesicle calculi identified. Urinary bladder is nearly empty. PROOF TECHNICIAN structures appear intact. CONCLUSION: 1. Bilateral nephrolithiasis. 2. Indeterminate multiple calcifications adjacent to UVJ on the right. Intraureteral calculus not excluded, not obstruction. CT urogram suggested to determine whether there are in fact any intraureteral calculi at the right UVJ.
== END 2018-10-28 12:54 ==
PROVIDERS: PCP Family Medicine; Visit Provider Urology
DX: N20.2 Calculus of kidney with calculus of ureter (principal)
CPT/HCPCS: 74176

== ENCOUNTER 2018-10-31 10:20 | Day surgery (SDC) | payer OTHER, SELFPAY ==
[2018-10-31] VITALS (7 sets, daily range): BP systolic 96–133; BP diastolic 67–105; PULSE 56–74; RESP 14–17; TEMP 36.5–36.8; O2SAT 93–99
--- NOTE | 2018-10-31 10:49 | HPE_ITS ---
Date of service: 10/31/18 Time of Service: 11:22 Assessment and Plan (1) Right distal ureteral calculus: Current visit: Yes Status: Acute We will proceed with cystoscopy and retrograde pyelogram. I expect from her symptoms we will find a right distal ureteral stone. We will have the holmium laser available to fragment the stone prior to extraction. She has had a total knee replacement within the past few months. We will cover her prophylactically with a combination of Ancef and gentamicin. History of Present Illness Chief Complaint: Right ureteral stone Narrative: This is a 48-year-old woman who has a history of hyperparathyroid disease. As a result, she has had numerous kidney stones in the past. The frequency of her stones has decreased dramatically since her parathyroidectomy. About 2 weeks ago, she noticed urinary frequency, urgency and intermittent right sided abdominal pain. Her urinalysis showed no bacteriuria. We suspected a right distal ureteral stone. As her symptoms progressed, we arranged a stone protocol CT scan. Numerous pelvic calcifications were seen as well as nonobstructing kidney stones. She had no hydronephrosis at the time, but she was not having any flank pain at the time of her study. I suspected that 1 of the pelvic calcifications was indeed within the ureter at the ureterovesical junction. Over the weekend, the painful episodes became more frequent. She has not had any fever or chills. She presents now for retrograde pyelogram and possible s tone manipulation. Review of Systems Review of Systems No fevers or chills No vision change or dysphasia No diabetes or thyroid dysfunction. History hyperparathyoid disease. No shortness of breath, cough or hemoptysis No chest pain or palpitations No nausea, vomiting No seizures, strokes or peripheral neuropathy No bleeding disorders or anemia No gout. s/p right knee replacem,ent [facility] Medical History (Updated 10/31/18 @ 10:55 by Carloz Lanza MD) Diverticulosis (Acute) Essential hypertension (Chronic 08/27/17) Paroxysmal atrial fibrillation (Chronic 08/23/17) Primary localized osteoarthritis of right knee (Acute) Right distal ureteral calculus (Acute) Vertigo (Chronic) Viral illness (Acute) Surgical History (Updated 10/31/18 @ 10:47 by Lucian Etienne) History of breast biopsy (Acute) History of total right knee replacement (TKR) (Acute) Hysterectomy Parathyroid adenoma (Resolved) S/P colonoscopy (Acute ~02/01/18) Status post arthroscopic surgery of left knee (Acute) Status post right rotator cuff repair (Acute) Social History Smoking/Tobacco Use Status: Never Alcohol Intake: current Alcohol Intake frequency: 3 or more drinks per day Drug use: Never Substance use type: does not use Household members: spouse 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 Pets and animals: No Do you feel safe at home: Yes Do you feel safe in your relationship?: Yes Meds Home Medications Medication Instructions Recorded Confirmed Type meclizine 25 mg tablet 25 mg PO BID-TID PRN #20 tab 06/07/18 10/31/18 Rx multivitamin 1 cap PO DAILY 08/16/18 10/31/18 History acetaminophen 1,000 mg PO Q8H PRN #90 tab 08/30/18 10/31/18 Rx celecoxib 200 mg PO BID PRN #60 cap 08/30/18 10/31/18 Rx sulfamethoxazole 800 1 tab PO BID #6 tab 10/08/18 10/31/18 Rx mg-trimethoprim 160 mg tablet atenolol 50 mg tablet 50 mg PO DAILY #90 tab 10/14/18 10/31/18 Rx tamsulosin 0.4 mg capsule 0.4 mg PO DAILY #14 cap 10/28/18 10/31/18 Rx Allergies Allergy/AdvReac Type Severity Reaction Status Date / Time No Known Allergies Allergy Unverified 10/31/18 10:50 Exam Narrative Exam Narrative: She is in no current distress. She does not appear septic or toxic. Her vital signs are documented elsewhere in the chart. Her neck is supple Her lungs are clear Cardiac exam shows a regular rate and rhythmn Abdomen is soft with no mass and no peritoneal signs There is no edema in the lower extremities She is awake and alert Results Last Vital Signs Temp 36.8 C 10/31/18 10:43 Pulse 59 L 10/31/18 10:43 Resp 17 10/31/18 10:43 BP 133/94 H 10/31/18 10:43 Pulse Ox 98 10/31/18 10:43
[2018-10-31] MEDS: Lactated Ringers 1,000 ML 80 ML IV ×2 (10:50→11:38)
[2018-10-31] MEDS: ceFAZolin 1 GM/50 ML BAG IVPB (11:50)
[2018-10-31] MEDS: GENTAMICIN 120 MG in Normal Saline 100 ML 200 MG IVPB (12:02)
[2018-10-31] MEDS: Lidocaine 2% Jelly 6 ML SYR (12:10)
[2018-10-31] MEDS: Omnipaque 300 MG/ML 50 ML BTL (12:20)
--- NOTE | 2018-10-31 12:34 | W.PM.DSUDISC ---
Discharge Plan Disposition Patient Disposition: HOME Condition: Stable Discharge Details Reason For Visit: (R) URETERAL STONE Attending Provider: Carloz Lanza Primary Care Provider: David Domingo Home Meds and New Rx's Prescriptions: No Action sulfamethoxazole-trimethoprim 800-160 mg tablet 1 tab PO BID Qty: 6 RF: 0 meclizine 25 mg tablet 25 mg PO BID-TID PRN (Reason: dizziness) Qty: 20 RF: 0 atenolol 50 mg tablet 50 mg PO DAILY Qty: 90 RF: 4 tamsulosin 0.4 mg capsule 0.4 mg PO DAILY Qty: 14 RF: 0 multivitamin Capsule 1 cap PO DAILY RF: 0 celecoxib 200 mg capsule 200 mg PO BID PRN (Reason: pain) Qty: 60 RF: 1 acetaminophen 500 mg tablet 1,000 mg PO Q8H PRN (Reason: pain) Qty: 90 RF: 3 Discharge Instructions Additional Instructions: No need to strain urine Pt has stent with string attached - stent can be removed in @ 3 days (either by pt or in my office) Script for hydrocodone printed OK to discontinue Flomax (although some pts find it may help relieve ureteral spasms) F/U 4 to 6 weeks with renal Ultrasound Activity:: Activity as Tolerated Shower/Bathe:: 24 hours Diet:: As Tolerated Discharge Orders Discharge Orders: Discharge Order (Routine); Ordered 10/31/18 Ordered By: Carloz Lanza DS: Diagnosis Discharge Diagnosis (1) Right distal ureteral calculus: Status: Acute
--- NOTE | 2018-10-31 12:43 | DI.RAD_ITS ---
SYMPTOMS/DIAGNOSIS: RT KIDNEY STONE C-ARM FLUOROSCOPY: Fluoroscopy Time: 42.2s C-arm fluoroscopy was utilized by Dr. Lanza during retrograde ureterography. Please see Dr. Lanza's procedure note. Hardcopy shows opacification of distal third of the right ureter.
[2018-10-31] MEDS: HYDROcodone 5/Acetaminophen 325 TAB PO (13:25)
--- NOTE | 2018-10-31 14:25 | ROE_ITS ---
DATE OF PROCEDURE: October 31, 2018 PREOPERATIVE DIAGNOSIS: Right ureteral stone. POSTOPERATIVE DIAGNOSIS: Right ureteral stone. PROCEDURE: Cystoscopy; bilateral retrograde pyelogram; right ureteral dilation; right ureteroscopy w ith stone extraction; insert right ureteral stent. SURGEON: Carloz Lanza M.D. ANESTHESIA: General. COMPLICATIONS: None. ESTIMATED BLOOD LOSS: Minimal. FINDINGS: Right distal ureteral stone. HISTORY: This is a 48-year-old woman who has a history of hyperparathyroid disease. She's had nume dottie stones in the past, but the frequency of her stones has decreased since she had a parathyroidect benjamin. For the past 2 to 3 weeks she's been having right lower quadrant discomfort, frequency and urgency. Her urine has been sterile, but has shown some blood. On CT scan there are numerous pelvic calcifica tions which are suspicious for a ureteral stone. She presents now for stone manipulation. OPERATIVE REPORT: The patient was brought to the Operating Room on 10/31/18. She was given preoperat diogo Ancef and Gentamicin since she's had a knee arthroplasty within the past two months. After successful induction of general anesthesia, she was placed in the dorsal lithotomy position. H er genitalia was prepped and draped. A 22 Guyanese rigid cystoscope was passed through the urethra into the bladder. The bladder was inspec eduard with the 30-degree lens. The left ureteral orifice appeared normal. The right orifice appeared more edematous. The left orifice was cannulated with a 6 Guyanese access catheter. A retrograde film was obtained by i njecting Omnipaque through the access catheter under fluoroscopic guidance. No filling defects were seen in the left ureter or collecting system. We then performed a retrograde pyelogram on the right side. Again the orifice was cannulated with a 6 Guyanese access catheter. A retrograde film was obtained by injecting Omnipaque through the access c atheter under fluoroscopic guidance. In this case, filling defects were seen within the distal urete r. I felt that there were two filling defects present. I then passed a Glidewire through the access catheter and maneuvered the wire up the remainder of the ureter. The access catheter was removed, leaving the wire in place. I then attempted to pass a semi-rigid ureteroscope through the ureteral orifice alongside the wire. I was unable to do so, so we used a UroMax balloon to dilate the distal ureter. The scope then was p assed quite easily. There in the distal ureter we encountered a ureteral stone. The stone was grasped in a Melanie stone basket and removed in its entirety. The stone was then sent to Pathology for chemical analysis. We reintroduced the ureteroscope, but did not find any additional stone fragments. Because of the ureteral dilation we decided to place a short-term ureteral stent. We passed a 4.8 Fr ench variable-length stent over the remaining wire. The proximal end of the stent was positioned in the renal pelvis and the distal end was within the bladder. The positioning of the stent was confirm ed both fluoroscopically and cystoscopically. The safety string was left in place on the stent. This was brought through the urethra and the end o f the string was tucked into the patient's vaginal cavity. The stent can be removed in 2 to 3 days. The patient tolerated this procedure well. There were no complications.
[2018-11-05 00:24] LABS: Source: Right Ureter
== END 2018-10-31 14:35 | disposition home or self-care (01) ==
PROVIDERS: PCP Family Medicine; Visit Provider Urology
PROC: (CPT 52352; principal; 2018-10-31 11:30)
DX: N20.1 Calculus of ureter (principal); E89.2 Postprocedural hypoparathyroidism; I10 Essential (primary) hypertension
CPT/HCPCS: 52352; 52332; 52344; NC; 74420; 82365; J0690; J1100; J1580; J1885; J2405; J3010; Q9967

== ENCOUNTER 2018-12-09 01:37 | Outpatient (CLI) | payer OTHER, SELFPAY ==
--- NOTE | 2018-12-09 15:00 | DI.US_ITS ---
EXAM: US RENAL CLINICAL HISTORY: r/o hydronephrosis after ureteroscopy, N20.1 CALCULUS OF URETER. TECHNIQUE: Ultrasound performed using standard protocol. COMPARISON: US OR ANESTHESIA from 08/30/2018 FINDINGS: The right kidney measures 11.5 x 5.4 x 5.7 cm. The right kidney measures 0.8 x 5.1 x 5.5 cm. The pre void bladder contains 27 cc. The postvoid bladder contains 0. Ureteral jets were visualized. Patient is status post ureteral stone demonstrated at CT on 10/28/2018 with stone removal carried out on 2018. IMPRESSION: There is no evidence of nephrolithiasis and there is no evidence of hydronephrosis.
== END 2018-12-09 01:57 ==
PROVIDERS: PCP Family Medicine; Visit Provider Urology
DX: N20.1 Calculus of ureter (principal)
CPT/HCPCS: 76770

== ENCOUNTER 2019-04-23 15:40 | Outpatient (REF) | payer OTHER, SELFPAY | END 2019-04-23 16:00 | LOC: LBN 15:40 | PROVIDERS: PCP Family Medicine; Visit Provider Surgery | DX: R50.9 Fever, unspecified (principal); J06.9 Acute upper respiratory infection, unspecified; R05 Cough | CPT/HCPCS: 87449 ==

== ENCOUNTER 2019-07-06 11:12 | Outpatient (CLI) | payer OTHER, SELFPAY ==
--- NOTE | 2019-07-06 11:28 | DI.CT_ITS ---
EXAM: CT ABDOMEN PELVIS WO CLINICAL HISTORY: assess for size/location of stone. TECHNIQUE: Imaging Protocol: Axial computed tomography images with coronal and sagittal reformatted images were created and reviewed. Oral: no COMPARISON: RENAL COLIC WO CONTRAST from 04/03/2008 CT ABDOMEN PELVIS WO from 10/28/2018 FINDINGS: ABDOMEN: Lung Bases: Normal where visualized. Liver: Normal density. No measurable mass. Gallbladder and biliary tract: No radiodense calculus or dilation. Pancreas: Normal density, no abnormal calcifications or inflammatory process. Spleen: Normal. Kidneys: Normal size, contour and axis. No obstructive uropathy. No masses seen. There is a 4 millime ters stone near the upper pole of the left kidney, unchanged. There is a 2-3 millimeter stone in the right mid kidney which is nonobstructing. No ureteral or bladder calculi are seen. Adrenal glands: No masses seen. Lymph nodes: Within normal limits. Abdominal Aorta: Abdominal portion non-dilated. PELVIS: Bladder: The bladder is nearly empty. Bowel: No obstruction or bowel wall thickening. Peritoneal cavity: No ascites, collection or mesenteric inflammatory response. Reproductive organs: The patient is status post hysterectomy. Bones: There are degenerative disc changes at L5-S1. IMPRESSION: Small nonobstructing bilateral renal calculi. No evidence of hydronephrosis.. DATA REPOSITORY: All CT scans at this facility are submitted to the National Radiology Data Registry (NRDR) Dose Index Registry (DIR) with the [employer] (ACR). RADIATION OPTIMIZATION: All CT scans at this facility use at least one of these dose optimization te chniques: automated exposure control; mA and/or kV adjustment per patient size (includes targeted exa ms where dose is matched to clinical indication); or iterative reconstruction.
== END 2019-07-06 11:32 ==
PROVIDERS: PCP Family Medicine; Visit Provider Urology
DX: N20.1 Calculus of ureter (principal); Z90.710 Acquired absence of both cervix and uterus
CPT/HCPCS: 74176

== ENCOUNTER 2019-07-10 07:51 | Day surgery (SDC) | payer OTHER, SELFPAY ==
--- NOTE | 2019-07-10 08:11 | HPE_ITS ---
Date of service: 07/10/19 Time of Service: 09:31 Assessment and Plan Assessment and plan (1) Left ureteral stone: Status: Acute Assessment and plan: We will move ahead with ureteroscopic stone manipulat ion. History of Present Illness History of Present Illness Chief Complaint: Left ureteral stone Narrative: This is a 49-year-old female who has a history of hyperparathyroidism. As a result, she has had Hypercalciuria and recurrent kidney stones. She has had a left abdominal and pelvic discomfort for the past week or 2. On CT scan, we identified a stone just at the ureterovesical junction. She has 2 nonobstructing stones (1 in each kidney). The current stone at the ureterovesical junction was previously seen in the left lower pole of the kidney. She has failed conservative management with alpha blockers and hydration. She presents for stone manipulation. Review of Systems Narrative: No fevers or chills No vision change or dysphasia No diabetes or thyroid. s/p parathyroidectomy No shortness of breath, cough or hemoptysis No chest pain or palpitations Nausea. No vomiting, hepatitis, ulcers, jaundice, diarrhea or constipation No seizures, strokes or peripheral neuropathy No bleeding disorders or anemia No gout. 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 Pets and animals: No Do you feel safe at home: Yes Do you feel safe in your relationship?: Yes Meds Home Medications and Allergies Home Medications Medication Instructions Recorded Confirmed Type multivitamin 1 cap PO DAILY 08/16/18 07/10/19 History atenolol 50 mg tablet 50 mg PO DAILY #90 tab 10/14/18 07/10/19 Rx finasteride 1 mg tablet 1 mg PO DAILY #30 tab 06/26/19 07/10/19 Rx ketorolac 10 mg tablet 10 mg PO Q6H PRN 5 Days #20 tab 07/01/19 07/10/19 Rx tamsulosin 0.4 mg capsule 0.4 mg PO DAILY #14 cap 07/06/19 07/10/19 Rx Allergies Allergy/AdvReac Type Severity Reaction Status Date / Time No Known Allergies Allergy Unverified 07/10/19 09:11 Exam Narrative Exam Narrative: She is in no current distress. She is cooperative. Her vital signs are documented elsewhere Her chest wall motion is normal. Her lungs are clear Cardiac exam shows a regular rate and rhythm Her abdomen is soft with no guarding or rebound tenderness She is awake and alert COVID-19 Screening Traveled to [place] from one of the affected countries or regions?: NO Recent travel in the [place] within the last 8 weeks?: No Recent out of the country travel within the last 8 weeks?: No Exposure or possible exposure to illness during travel?: No Had IN PERSON contact w/suspected or confirmed C-19 person: No Symptoms noted since travel?: No Symptoms
[2019-07-10 09:06] VITALS: BP 143/103; PULSE 59; RESP 18; TEMP 37.1; O2SAT 97
[2019-07-10] MEDS: Omnipaque 300 MG/ML 50 ML BTL (09:18)
[2019-07-10] MEDS: Lactated Ringers 1,000 ML 80 ML IV (09:40)
[2019-07-10] MEDS: ceFAZolin 2 GM/50 ML BAG IVPB (09:50)
[2019-07-10] MEDS: GENTAMICIN 120 MG in Normal Saline 100 ML 200 MG IVPB (09:55)
[2019-07-10] MEDS: Lidocaine 2% Jelly 6 ML SYR (10:15)
--- NOTE | 2019-07-10 10:33 | W.PM.DSUDISC ---
Discharge Plan Disposition Patient Disposition: HOME Condition: Stable Discharge Details Attending Provider: Carloz Lanza Primary Care Provider: David Domingo Home Meds and New Rx's Prescriptions: No Action atenolol 50 mg tablet 50 mg PO DAILY Qty: 90 RF: 4 finasteride [Propecia] 1 mg tablet 1 mg PO DAILY Qty: 30 RF: 12 ketorolac 10 mg tablet 10 mg PO Q6H PRN (Reason: pain) 5 Days Qty: 20 RF: 1 tamsulosin 0.4 mg capsule 0.4 mg PO DAILY Qty: 14 RF: 0 multivitamin Capsule 1 cap PO DAILY RF: 0 Discharge Instructions Additional Instructions: followup renal ultrasound in 4 to 6 weeks Activity:: Activity as Tolerated Shower/Bathe:: 24 hours Diet:: As Tolerated Discharge Orders Discharge Orders: Discharge Order (Routine); Ordered 07/10/19 Ordered By: Carloz Lanza DS: Diagnosis Discharge Diagnosis (1) Left ureteral stone: Status: Acute
--- NOTE | 2019-07-10 10:40 | DI.RAD_ITS ---
EXAM: OR RETROGRADE CLINICAL HISTORY: LT URETERAL STONE FINDINGS: C-arm fluoroscopy was utilized by Dr. Lanza during retrograde ureterography. Please see Dr. Lanza's procedure note. Fluoro time was 7.9 seconds.
[2019-07-10] MEDS: Phenazopyridine 200 MG TAB PO (11:11)
[2019-07-10 11:22] VITALS: BP 140/96; PULSE 62; RESP 18; TEMP 36.6; O2SAT 99
--- NOTE | 2019-07-10 12:27 | W.PM.OP ---
Date of service: 07/10/19 Time of Service: 12:27 Operative Note Operative Note DATE OF PROCEDURE: 07/10/19 PRE-OP DIAGNOSIS: left ureteral stone POST-OP DIAGNOSIS: same PROCEDURE: Cystoscopy, left retrograde pyelogram, left ureteroscopy SURGEON: Carloz Lanza ANESTHESIA: spinal ESTIMATED BLOOD LOSS: 0 PATHOLOGY: none sent COMPLICATIONS: None Patient was transported to: same day Patient's condition: stable Indications: This is a 49-year-old female who has a history of hyperparathyroid disease. As a result, she has had multiple kidney and ureteral stones. She has had pelvic discomfort recently with a finding she is not improved with conservative management. She presents for stone manipulation Findings: Narrowed left distal ureter with multiple small stone fragments irrigated free Procedure Description: The patient was brought to the operating room on 07/10/2019 after successful induction of spinal anesthesia she is placed in the dorsal lithotomy position the genitalia is prepped and draped A 22 [place] rigid cystoscope was passed through the urethra into the bladder. The bladder was inspected with a 30 degree lens. Both ureteral orifice ease appeared normal. There is no significant edema around the left ureteral orifice. The left orifice was cannulated with a 6 [place]ian access catheter. Retrograde pyelogram film was obtained by injecting Omnipaque through the access catheter under fluoroscopic guidance. On the initial film, very small filling defect could be seen just within the ureteral orifice. A Glidewire was then passed through the access catheter and the catheter was removed leaving the wire in place. The semirigid ureteroscope was then introduced through the urethra into the bladder the scope was advanced up the left ureter to the level of the pelvic brim. A narrowed area was found in the distal ureter but no significant large stone burden was seen above this level the scope was then removed. The bladder was reinspected with a 22 [place]ian scope and a 30 degree lens no large stone burden was seen within the bladder, but upon draining the bladder multiple small gritty stone particles were found within the drainage screen Because we did not need to dilate the ureter with the balloon we elected not to place a ureteral stent the guidewire was removed The patient tolerated this procedure well with no complications
[2019-07-10 12:28] VITALS: BP 93/78; PULSE 65; RESP 18; TEMP 36.8; O2SAT 97
== END 2019-07-10 13:11 | disposition home or self-care (01) ==
PROVIDERS: PCP Family Medicine; Visit Provider Urology
PROC: (CPT 52352; principal; 2019-07-10 10:15)
DX: N20.1 Calculus of ureter (principal); E21.3 Hyperparathyroidism, unspecified
CPT/HCPCS: 52352; NC; 74420; J0690; J1580; J2405; Q9967

== ENCOUNTER 2019-08-08 01:36 | Outpatient (CLI) | payer OTHER, SELFPAY ==
--- NOTE | 2019-08-08 06:45 | DI.US_ITS ---
EXAM: US RENAL CLINICAL HISTORY: lt ureteral stone, ? hydronephrosis, n20.1. TECHNIQUE: Velazquez scale, color and spectral Doppler were used. COMPARISON: US US RENAL from 12/09/2018 FINDINGS: Renal size in cm: Right: 11.3 left: 9.4 Echogenicity: Normal. Hydronephrosis: No. Cyst or mass: No. Nephrolithiasis: Solitary echogenic foci are seen in the kidneys bilaterally. These are suspicious f or non-obstructing stones. Other findings: None. Bladder:Normal. Ureteral jets: Right: Visualized and unremarkable. Left: Visualized and unremarkable. Prevoid vol:165 cc Postvoid vol:0 cc DOPPLER FINDINGS: Normal and symmetric blood flow to the kidneys. IMPRESSION: Bilateral nephrolithiasis. No evidence of hydronephrosis. DATA REPOSITORY:
== END 2019-08-08 01:56 ==
PROVIDERS: PCP Family Medicine; Visit Provider Urology
DX: N20.0 Calculus of kidney (principal)
CPT/HCPCS: 76770

== ENCOUNTER 2020-03-14 01:15 | Outpatient (CLI) | payer OTHER, SELFPAY ==
[2020-03-14 08:49] LABS: ALT 26 U/L (14-59); AST 17 U/L (15-37); Albumin 3.9 g/dL (3.4-5.0); Alkaline Phosphatase 66 U/L (46-116); BUN 15 mg/dL (7-18); Bilirubin, Total 0.5 mg/dL (0.2-1.0); CREATININE 0.83 mg/dL (0.55-1.02); Chloride 106 mmol/L (98-107); Glucose 96 mg/dL (74-106); Potassium 4.6 mmol/L (3.5-5.1); Sodium 139 mmol/L (136-145); Total Protein 6.9 g/dL (6.4-8.2)
== END 2020-03-14 01:35 ==
PROVIDERS: PCP Family Medicine; Visit Provider Family Medicine
DX: Z00.00 Encounter for general adult medical examination without abnormal findings (principal)
CPT/HCPCS: 36415; 80053

== ENCOUNTER 2020-03-28 00:39 | Outpatient (CLI) | payer OTHER, SELFPAY ==
--- NOTE | 2020-03-28 07:30 | DI.MAMMO_ITS ---
EXAM: MAMMO SCREENING CLINICAL HISTORY: screening,Z12.31,Z00.00,ENCOUNTER FOR ANNUAL EXAM. TECHNIQUE: Bilateral full field digital CC and MLO mammographic images were obtained with 3D tomosyn thesis and utilizing computer aided detection (CAD). COMPARISON: Prior mammogram performed August 2017. FINDINGS: The fibroglandular tissue is again noted be moderately dense. In the right breast there is a lobulated noncalcified nodule seen laterally, not previously present, this measuring 7 x 6 millimeters and located 10 centimetres in from the nipple. Other smaller nodule s are also seen laterally in the right breast. Ultrasound recommended. Posteriorly in the right jerel ast there is a possible nodular density seen on the MLO view. Recommend spot compression view. No new obvious findings in the opposite-left breast. There is no significant architectural distorti on nor skin thickening-retraction. IMPRESSION: Dense bilateral fibroglandular tissue. No radiographic evidence of malignancy in left breast. Right breast nodules evident. Breast ultrasound is recommended to determine if these are solid or cystic. BI-RADS Category 0 - Assessment Incomplete: Need additional imaging evaluation Breast Density - Category C - Heterogeneously dense Breast density Category C or D implies that the patient has dense breast tissue. Dense breast tissue can make it harder to find cancer on a mammogram. Dense breast tissue is also associated with an incr eased risk of breast cancer. This information about the result of the mammogram report was provided to the patient to raise their awareness. Use this report when you speak with the patient about their risks for breast cancer, which includes their family history. At that time, you may recommend additional screening tests (Ultrasoun d or MRI) as these tests may add significant information. A negative radiographic report should not delay biopsy if a dominant or clinically suspicious mass is present. Up to ten percent of cancers are not identified on mammography. A negative report may reinforce clinical impression. Adenosis and dense breasts may obscure an underlying neoplasm. False positive reports average 6 to 10%. Patient will receive a letter notifying them of these results.
== END 2020-03-28 00:59 ==
PROVIDERS: PCP Family Medicine; Visit Provider Family Medicine
DX: Z00.00 Encounter for general adult medical examination without abnormal findings (principal); Z12.31 Encounter for screening mammogram for malignant neoplasm of breast; R92.8 Other abnormal and inconclusive findings on diagnostic imaging of breast
CPT/HCPCS: 77063; 77067

== ENCOUNTER 2020-04-04 01:07 | Outpatient (CLI) | payer OTHER, SELFPAY ==
--- NOTE | 2020-04-04 | DI.MAMMO_ITS ---
EXAM: MG MAMMO SCREEN CALL BACK UNI CLINICAL HISTORY: F/U MAMMO, LOBULATED NODULES TECHNIQUE: Mammograms were interpreted according to the usual protocol including computer analysis w [employer] CAD system, tomosynthesis and C-view imaging. COMPARISON: FINDINGS: Additional mammographic views of the right breast and right breast ultrasound are interpreted in conj unction. These examinations were obtained to evaluate laterally located right breast nodule seen on recent mammogram and also an area of questionable nodular density seen posteriorly in the central por tion of the right breast on MLO view. Additional mammographic views show no evidence of a posterior central mass. There is a well-circumscribed persistent nodule of the upper outer quadrant of the breast. This brandon esponds ultrasound a graphically to an approximately 6 millimeter in diameter homogeneous low echogen icity well-circumscribed mass with a probable hilum, suggesting lymph node. Ultrasound a graphically there is no significant finding in the central portion of the breast. IMPRESSION: No specific evidence of malignancy at this time. Follow-up unilateral right breast mammogram recomm ended in 6 months. Follow-up right breast ultrasound requested as well to re-evaluate probably benig n 6 millimeter nodule as described above. BI-RADS Category 3 - 6 month - Probably Benign Finding: Recommend follow-up mammography in 6 months Breast Density - Category C - Heterogeneously dense
== END 2020-04-04 01:27 ==
PROVIDERS: PCP Family Medicine; Visit Provider Family Medicine
DX: N63.11 Unspecified lump in the right breast, upper outer quadrant (principal); R92.8 Other abnormal and inconclusive findings on diagnostic imaging of breast
CPT/HCPCS: 76642; 77063; 77067

== ENCOUNTER 2020-09-02 10:20 | Observation (INO) | payer OTHER, SELFPAY ==
[2020-09-02] VITALS (10 sets, daily range): BP systolic 99–128; BP diastolic 65–80; PULSE 58–75; RESP 16–18; TEMP 36.2–36.9; O2SAT 98–100
--- NOTE | 2020-09-02 10:15 | RT.EKG_ITS ---
APPROVED REPORT Exam: Resting ECG Reason for Exam: chest pain Patient Location: E HR:58 bpm ECG Measurements Heart Rate 58 AXIS CO 174 P 18 QRSd 90 QRS -30 QT 438 T 3 QTc 430 Conclusion Sinus bradycardia...rate< 60 no STEMI, non-diagnostic EKG I have reviewed and interpreted ECG and agree with software generated interpretation.
--- NOTE | 2020-09-02 10:45 | DI.RAD_ITS ---
Exam(s) XR CHEST 2V PA LATERAL EXAM: XR CHEST 2V PA LATERAL CLINICAL HISTORY: chest pain. TECHNIQUE: 2D digital imaging was performed. COMPARISON: No exams were available for comparison FINDINGS: Heart size is normal. The mediastinum is not widened. Lungs are clear. No infiltrates nor pleural effusions. IMPRESSION: No acute pulmonary findings. DATA REPOSITORY: RADIATION DOSE DELIVERED:
[2020-09-02] MEDS: nitroGLYcerin 0.4 MG TAB SL ×2 (10:50→11:00)
[2020-09-02] MEDS: Aspirin 81 MG CHEW 324 MG CH (10:52)
[2020-09-02] MEDS: Normal Saline 500 ML IV (10:54)
[2020-09-02 10:56] LABS: Abs Immature Grans 0.04 10^3/uL (0.0-0.06); Absolute Basophil Count 0.04 10^3/uL (0.0-0.2); Absolute Eosinophil Count 0.06 10^3/uL (0.0-0.7); Absolute Lymphocyte Count 2.34 10^3/uL (1.2-3.4); Absolute Neutrophil Count 3.77 10^3/uL (1.2-6.7); Basophils % 0.6; Eosinophils % 0.9; HGB 13.3 g/dL (11.2-15.7); Immature Grans % 0.6; Lymphocytes % 33.2; MCH 30.9 pg (27.0-33.0); MCHC 32.4 % (32.0-36.0); MCV 95.3 fL (80-95); MPV 9.5 fL (8.0-11.0); Monocytes % 11.3; Neutrophils % 53.4; Nucleated RBC 0 %; Platelet Count 306 10^3/uL (130-400); RDW 14.6 % (11.7-14.6); WBC 7.05 10^3/uL (4.4-10.8)
--- NOTE | 2020-09-02 11:03 | ED.GENADUL_ITS ---
Discharge Plan Discharge Details Chief Complaint: Chest Pain Admit Date/Time: 09/02/20 12:02 Admit Provider: Faustino Rogers Attending Provider: Faustino Rogers Primary Care Provider: David Domingo ED Provider: Azeb Esterlla Discharge Data Discharge Date/Time-TO BE ENTERED AT DEPARTURE: 09/02/20 12:54 Medical Decision Making Chest x-ray does not show acute pathology, heart score 3, story is concerning and I think patient warrants admission for observation at this time Dr. Rogers has agreed to admit patient, symptomatic improvement after nitroglycerin administration 2 mg of morphine was offered, patient declined, she is noted to be hypoglycemic, she is declined supplementation Initial troponin and EKG do not show acute pathology Patient will be admitted after oral aspirin administration, 324 chewable No acute findings on telemetry monitoring, repeat EKG ordered secondary to increased chest pain, this was negative for acute abnormality Differential Diagnosis Differential Diagnosis: Non-ST elevation IA, angina, pulmonary embolism, asthma Medical Records Medical records reviewed: Yes I reviewed the patient's medical records. Lab Data Lab results reviewed: Yes I reviewed the patient's lab results. ECG Data Prior ECG tracings: available for review HPI General Mode of arrival: ambulatory . Date/Time Provider Initiated Documentation: 09/02/20 10:22 . Limitations to Documentation: no limitations . Information obtained by: patient . HPI Narrative: This 50-year-old female with past medical history of ureterolithiasis, atrial fibrillation, hypertension presents with report of chest pain. Patient had pain yesterday at approximately 11 o'clock when she was exerting herself yesterday. She states that she was walking up a hill when she developed some chest tightness and pressure. She denies radiation. She denies any nausea or diaphoresis. She states that she was short of breath when she experienced the symptoms in the last for 5 to 10 minutes. She states at rest her symptoms resolved and she started returning home when she developed an additional episode lasted 5 to 10 minutes and then resolved. She denies any current shortness of breath but did have a subsequent episode that started at 10 this morning. It lasted for approximately 40 minutes and has been consistent. She is at rest. She denies any pleuritic pain or current shortness of breath. She denies any nausea or diaphoresis. She has any new medications or recent surgeries. She denies any calf pain or swelling. She denies early cardiac family history. She has not had a stress test in the past. She does not smoke, drink, or use any illicit drugs. Related Data Home Medications Medication Instructions Recorded Confirmed multivitamin 1 cap PO DAILY 08/16/18 09/02/20 atenolol 50 mg tablet 50 mg PO DAILY #90 tab 01/02/20 09/02/20 inhalational spacing device #1 ea 02/21/20 02/23/20 levalbuterol tartrate 45 1 - 2 inh INHALATION Q6H PRN #15 g 02/21/20 09/02/20 mcg/actuation aerosol inhaler varicella-zoster gE vac,2 of 2 50 50 mcg IM ONCE #1 ea 02/21/20 02/23/20 mcg IM suspension lisinopril 5 mg tablet 5 mg PO DAILY #30 tab 05/07/20 09/02/20 finasteride 1 mg tablet 2 mg PO DAILY #180 tab 06/26/20 09/02/20 Previous Rx's Medication Instructions Recorded atenolol 50 mg tablet 50 mg PO DAILY #90 tab 01/02/20 inhalational spacing device #1 ea 02/21/20 levalbuterol tartrate 45 1 - 2 inh INHALATION Q6H PRN #15 g 02/21/20 mcg/actuation aerosol inhaler varicella-zoster gE vac,2 of 2 50 50 mcg IM ONCE #1 ea 02/21/20 mcg IM suspension lisinopril 5 mg tablet 5 mg PO DAILY #30 tab 05/07/20 finasteride 1 mg tablet 2 mg PO DAILY #180 tab 06/26/20 Allergies Allergy/AdvReac Type Severity Reaction Status Date / Time No Known Allergies Allergy Unverified 09/02/20 10:28 General Stated Complaint: Chest Pain [place]: 3 Review of Systems Narrative: Review of systems obtained x7 aside from where indicated in [facility] Medical History Diverticulosis Essential hypertension (08/27/17) Paroxysmal atrial fibrillation (08/23/17) 1 symptomatic around 2013 Managed on atenolol Primary localized osteoarthritis of right knee s/p R TKA on 08/30/18 Right distal ureteral calculus Right trigger finger Injection: 02/23/20 Vertigo Occasional symptoms 2 episodes that sought treatment for Viral illness can't say for sure but mostly benign features of this illness Discussed w/u to include CT head and/or labs--she will hold off for another day or so Surgical History History of breast biopsy Benign biopsies 3 since the age of 14 yo History of total right knee replacement (TKR) Hysterectomy Tubal ligation prior to hysterectomy Parathyroid adenoma S/P resection 2002 S/P colonoscopy (~02/01/18) screening colonoscopy with 10 year recall. Status post arthroscopic surgery of left knee partial medial mensicectomy 2000 Status post right rotator cuff repair Distal clavicle excision 2012 Family History Mother Hypertension Osteoarthritis Father Unknown family medical history Alcohol abuse Sister Osteoarthritis S/p TKA in late 40s Son No problems noted. Daughter No problems noted. 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 Pets and animals: No Sexually active: Yes Do you think of yourself as: straight/heterosexual Current gender identity: female What is your relationship status?: How often do you talk on the phone with friends or family?: once per week How often do you get together with friends or relatives?: three or more times per week Do you belong to any clubs or organized social groups?: no Panel score (0-1 are the most socially isolated patients): 2 What type of physical activity do you participate in: walking Duration: 45-60 minutes/day Frequency: 1-2 times per week Manisha/Church: None Seatbelt use: always Drive intox or ride w/intox special events driver: No Do you feel safe at home: Yes Do you feel safe in your relationship?: Yes Victim of physical abuse: No Victim of emotional abuse: Yes Victim of sexual abuse: No Would you like helpful sources: No Exam Const General: cooperative and no acute distress Eyes Pupils: PERRL Resp Effort & Inspection: normal respiratory effort Auscultation: clear to auscultation bilaterally Cardio Rate: regular rate Rhythm: regular rhythm GI Other: No abdominal tenderness on exam Skin General skin exam: no rashes or lesions noted Neuro General: patient alert and patient oriented x3 Extrem Other: No calf tenderness or swelling appreciated. Peripheral pulses intact all 4 extremities Course Vital Signs Vital signs: Vital Signs Temperature 36.3 C L 09/02/20 10:24 Pulse 64 09/02/20 10:24 Respiratory Rate 18 09/02/20 10:24 Blood Pressure 124/79 09/02/20 10:24 Pulse Oximetry 100 09/02/20 10:24 Temperature 36.3 C L 09/02/20 10:24 Temperature Source Temporal Artery Scan 09/02/20 10:24 Pulse 64 09/02/20 10:24 Respiratory Rate 18 09/02/20 10:24 Respiratory Effort Non-Labored 09/02/20 10:28 Blood Pressure 124/79 09/02/20 10:24 Blood Pressure Position Sitting 09/02/20 10:24 Pulse Oximetry 100 09/02/20 10:24 Oxygen Delivery Method Room Air 09/02/20 10:24 Oxygen Flow Rate 0 09/02/20 10:24 Pain Level 6 09/02/20 10:24 Lab/Test Results Lab/Test Results: Laboratory Tests Range/Units 09/02/20 10:28 WBC (4.4-10.8) 10^3/uL 7.05 RBC (3.93-5.22) 10^6/uL 4.30 Hgb (11.2-15.7) g/dL 13.3 Hct (36.0-46.0) % 41.0 MCV (80-95) fL 95.3 H MCH (27.0-33.0) pg 30.9 MCHC (32.0-36.0) % 32.4 RDW (11.7-14.6) % 14.6 Plt Count (130-400) 10^3/uL 306 MPV (8.0-11.0) fL 9.5 Immature Gran % 0.6 Neutrophils % 53.4 Lymphocytes % 33.2 Monocytes % 11.3 Eosinophils % 0.9 Basophils % 0.6 Nucleated RBC % % 0 Absolute Neutrophils (1.2-6.7) 10^3/uL 3.77 Absolute Lymphocytes (1.2-3.4) 10^3/uL 2.34 Absolute Monocytes (0.1-0.8) 10^3/uL 0.80 Absolute Eosinophils (0.0-0.7) 10^3/uL 0.06 Absolute Basophils (0.0-0.2) 10^3/uL 0.04
[2020-09-02 11:22] LABS: ALT 36 U/L (14-59); AST 23 U/L (15-37); Alkaline Phosphatase 61 U/L (46-116); Anion Gap 14.4 mmol/L (3-11); BUN 14 mg/dL (7-18); Bilirubin, Total 0.5 mg/dL (0.2-1.0); CO2 22.6 mmol/L (21.0-32.0); CREATININE 0.8 mg/dL (0.55-1.02); Calcium 8.8 mg/dL (8.5-10.1); Chloride 102 mmol/L (98-107); Glucose 66 mg/dL (74-106); Magnesium 2.2 mg/dL (1.8-2.4); NT-proBNP 124 pg/mL (<300); Potassium 4.4 mmol/L (3.5-5.1); Sodium 139 mmol/L (136-145); Total Protein 7.4 g/dL (6.4-8.2); Troponin I < 0.05 ng/mL (<0.06)
--- NOTE | 2020-09-02 11:24 | NUR.NOTE ---
pt had a light headed episode after the NTG # 2, with a BP in the 97/ range. it passed after 10 min . she had relief of most of the discomfort but the discomfort returned after 14 min. when nurse returned with the morphine the pt stated that the pain was resolved and refused themotphine Nursing Note:
--- NOTE | 2020-09-02 12:00 | RT.EKG_ITS ---
APPROVED REPORT Exam: Resting ECG Reason for Exam: chest pain returned Patient Location: E HR:52 bpm ECG Measurements Heart Rate 52 AXIS MT 156 P -14 QRSd 92 QRS -27 QT 459 T 2 QTc 426 Conclusion Sinus bradycardia...rate< 60 Left ventricular hypertrophy...multiple voltage criteria no STEMI, non-diagnostic EKG I have reviewed and interpreted ECG and agree with software generated interpretation.
--- NOTE | 2020-09-02 12:09 | NUR.NOTE ---
pt returned from xray at 1155 with returning chest pain after standing for her x rayNursing Note:
[2020-09-02 12:46] LABS: Source Nasal/Nares
--- NOTE | 2020-09-02 14:36 | HPE_ITS ---
Date of service: 09/02/20 Time of Service: 14:36 Assessment and Plan Assessment and plan (1) Chest pressure: Start date: 09/02/20 Start time: 15:11 Status: Acute Assessment and plan: On going for months worsening over the last couple days. Without any associated symptoms such as SOB, n/v, radiating pain, just pressure lasting 10 mins, intermittently happening. Differential to include esophageal spasm vs GERD vs Cardiac related. Trop negative in ED 3 doses nitro given with little relief Will trial GI cocktail omeprazole Stress test in am She only eats a keto meal at 5 pm daily (2) Essential hypertension: Start date: 09/02/20 Start time: 15:17 Status: Chronic Assessment and plan: will continue lisinopril (3) Paroxysmal atrial fibrillation: Start date: 09/02/20 Start time: 15:18 Status: Chronic Assessment and plan: Hold BB in am for Stress test. discussed with Dr. 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 She went to the ED due to pressure. She currently is on the intermittent fasting keto diet only eating once daily at 5 pm. She drinks coffee and water or tea throughout the day. She states she was ambulating day prior to admission up [place] when she started having chest pressure lasting approx 10 min without associated SOB or radiating symptoms. Chest Presure did not radiate anywhere and it was done after resting. It did return when ambulating home and going up [place] back to the house 2 more times, but soon resolved. Day of admission however patient was not doing anything but sitting and had a bout that did not resolve with no associated symptoms. Labs in ED remarkable for elevated anion gap at 14.4, glucose 66. Likely due to the diet she is on. She is asymptomatic. She has been asked to be admitted to /[facility] for further admission. She states upon further review this pain started months ago but has been getting worse, since about winter time. Trops negative. R/o esophageal spasm vs GERD vs cardiac. 2 doses of nitro in ED with little relief. Will trial mylanta and lidocaine, omeprazole. Stress test in am. She denies SOB. N/V/D. Review of Systems All systems reviewed & are unremarkable except as noted in HPI and below PFSH Medical History Diverticulosis Essential hypertension (08/27/17) Paroxysmal atrial fibrillation (08/23/17) 1 symptomatic around 2013 Managed on atenolol Primary localized osteoarthritis of right knee s/p R TKA on 08/30/18 Right distal ureteral calculus Right trigger finger Injection: 02/23/20 Vertigo Occasional symptoms 2 episodes that sought treatment for Viral illness can't say for sure but mostly benign features of this illness Discussed w/u to include CT head and/or labs--she will hold off for another day or so Surgical History History of breast biopsy Benign biopsies 3 since the age of 14 yo History of total right knee replacement (TKR) Hysterectomy Tubal ligation prior to hysterectomy Parathyroid adenoma S/P resection 2002 S/P colonoscopy (~02/01/18) screening colonoscopy with 10 year recall. Status post arthroscopic surgery of left knee partial medial mensicectomy 2000 Status post right rotator cuff repair Distal clavicle excision 2012 Family History Mother Hypertension Osteoarthritis Father Unknown family medical history Alcohol abuse Sister Osteoarthritis S/p TKA in late 40s Son No problems noted. Daughter No problems noted. 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 Pets and animals: No Sexually active: Yes Do you think of yourself as: straight/heterosexual Current gender identity: female What is your relationship status?: How often do you talk on the phone with friends or family?: once per week How often do you get together with friends or relatives?: three or more times per week Do you belong to any clubs or organized social groups?: no Panel score (0-1 are the most socially isolated patients): 2 What type of physical activity do you participate in: walking Duration: 45-60 minutes/day Frequency: 1-2 times per week Manisha/Orthodox: None Seatbelt use: always Drive intox or ride w/intox 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 Do you feel safe at home: Yes Do you feel safe in your relationship?: Yes Victim of physical abuse: No Victim of emotional abuse: Yes Victim of sexual abuse: No Would you like helpful sources: No Meds Allergies and Home Medications Allergies Allergy/AdvReac Type Severity Reaction Status Date / Time No Known Allergies Allergy Unverified 09/02/20 10:28 Home Medications Medication Instructions Recorded Confirmed Type multivitamin 1 cap PO DAILY 08/16/18 09/02/20 History atenolol 50 mg tablet 50 mg PO DAILY #90 tab 01/02/20 09/02/20 Rx inhalational spacing device #1 ea 02/21/20 02/23/20 Rx levalbuterol tartrate 45 1 - 2 inh INHALATION Q6H PRN #15 g 02/21/20 09/02/20 Rx mcg/actuation aerosol inhaler varicella-zoster gE vac,2 of 2 50 50 mcg IM ONCE #1 ea 02/21/20 02/23/20 Rx mcg IM suspension lisinopril 5 mg tablet 5 mg PO DAILY #30 tab 05/07/20 09/02/20 Rx finasteride 1 mg tablet 2 mg PO DAILY #180 tab 06/26/20 09/02/20 Rx Exam Narrative Exam Narrative: Const: younger than stated age female sitting up in bed calm, cooperative, does not appear to be in distress, answer questions appropriately HNMT: . Const General: cooperative, healthy appearing, comfortable and no acute distress Eyes General: appearance normal, both eyes and all related structures Pupils: PERRL Neck Neck: normal visual inspection, full ROM and no lymphadenopathy Resp Effort & Inspection: normal respiratory effort and able to speak in complete sentences Auscultation: clear to auscultation bilaterally Cardio Jugular venous pressure: no JVD Rate: regular rate Rhythm: regular rhythm GI Inspection: normal to inspection Palpation: soft and no hepatosplenomegaly Auscultation: normal bowel sounds General: deferred Skin General skin exam: no rashes or lesions noted Neuro General: patient alert, patient awake and patient oriented x3 Extrem General: normal to inspection and full ROM Results Labs Result diagrams: 09/02/20 10:28 09/02/20 10:28 Labs: Laboratory Results - last 24 hr 09/02/20 09/02/20 09/02/20 10:28 10:28 12:20 WBC 7.05 RBC 4.30 Hgb 13.3 Hct 41.0 MCV 95.3 H MCH 30.9 MCHC 32.4 RDW 14.6 Plt Count 306 MPV 9.5 Immature Gran % 0.6 Neutrophils % 53.4 Lymphocytes % 33.2 Monocytes % 11.3 Eosinophils % 0.9 Basophils % 0.6 Nucleated RBC % 0 Absolute Neutrophils 3.77 Absolute Lymphocytes 2.34 Absolute Monocytes 0.80 Absolute Eosinophils 0.06 Absolute Basophils 0.04 Sodium 139 Potassium 4.4 Chloride 102 Carbon Dioxide 22.6 Anion Gap 14.4 H BUN 14 Creatinine 0.8 Estimated GFR/1.73 m2 >= 60.00 Glucose 66 L Calcium 8.8 Magnesium 2.2 Total Bilirubin 0.5 AST 23 ALT 36 Alkaline Phosphatase 61 Troponin I < 0.05 NT-Pro-B Natriuret Pep 124 Total Protein 7.4 Albumin 4.0 COVID-19 Source Nasal/nares Last Vital Signs Temp 36.3 C L 09/02/20 12:45 Pulse 64 09/02/20 14:32 Resp 18 09/02/20 12:45 BP 109/70 09/02/20 14:32 Pulse Ox 100 09/02/20 12:45 COVID-19 Screening Have you, or household traveled for leisure in last 14 days?: No Had IN PERSON contact w/suspected or confirmed C-19 person: No
[2020-09-02] MEDS: Omeprazole 20 MG CAPCR PO (15:01)
[2020-09-02 15:02] LABS: Troponin I < 0.05 ng/mL (<0.06)
[2020-09-02 15:19] LABS: COVID-19 PCR Negative (Negative)
[2020-09-02] MEDS: Normal Saline Flush 10 ML SYR IVP (20:38)
[2020-09-03 02:55] VITALS: BP 117/77; PULSE 71; RESP 20; TEMP 36.3; O2SAT 99
[2020-09-03 07:00] VITALS: PULSE 74
[2020-09-03 07:56] VITALS: BP 118/83; PULSE 63; RESP 18; TEMP 36.8; O2SAT 99
--- NOTE | 2020-09-03 08:27 | INITIAL_ITS ---
- If Service Date Differs Date of service: 09/03/20 Time of Service: 08:31 Care Management Initial Assess REASON FOR HOSPITALIZATION:: Chest Pain PAST MEDICAL HISTORY/PAST SURGICAL HISTORY:: Diverticulosis. Essential hypertension (08/27/17). Paroxysmal atrial fibrillation (08/23/17). 1 symptomatic around 2013. Managed on atenolol. Primary localized osteoarthritis of right knee. s/p R TKA on 08/30/18. Right distal ureteral calculus. Right trigger finger. Injection: 02/23/20. Vertigo. Occasional symptoms. 2 episodes that sought treatment for. Viral illness. can't say for sure but mostly benign features of this illness. Discussed w/u to include CT head and/or labs--she will hold off for another day or so. History of breast biopsy. Benign biopsies. 3 since the age of 14 yo. History of total right knee replacement (TKR). Hysterectomy. Tubal ligation prior to hysterectomy. Parathyroid adenoma. S/P resection 2002. S/P colonoscopy (~02/01/18). screening colonoscopy with 10 year recall. Status post arthroscopic surgery of left knee. partial medial mensicectomy. 2000. Status post right rotator cuff repair. Distal clavicle excision. 2012 PREVIOUS FUNCTIONAL STATUS/SOCIAL/FAMILY SUPPORTS:: Resides in [place], with , Brian. 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 CURRENT FUNCTIONAL STATUS:: Kaitlynn was preparing for discharge; no concerns raised at this time. ADVANCE DIRECTIVES:: None on file at [employer]. Has patient been provided with info about the portal/API?: Yes Did the patient sign up for the portal?: Yes CODE STATUS:: Full Code INSURANCE COVERAGE / FINANCIAL ISSUES:: [employer] CURRENT HOME/COMMUNITY SERVICES/EQUIPMENT:: None, currently. PRIMARY CARE PHYSICIAN:: David Domingo POTENTIAL DISCHARGE NEEDS:: Follow up appointments. PATIENT/FAMILY EDUCATION NEEDS:: Review discharge instructions, discuss Ask Me Three. ANTICIPATED BARRIERS TO DISCHARGE:: None identified. TRANSPORTATION:: Via private vehicle with her , Brian. PLAN:: Kaitlynn will return home when ready per MD. She will follow up with her PCP and plan of care as prescribed. She will transport via private vehicle with her Brian.
--- NOTE | 2020-09-03 11:00 | DI.NM_ITS ---
APPROVED REPORT Exam: Exercise Treadmill Patient Location: In-Patient Room/Bed: Stress Nurse: Pamela Bullard RN Ordering Provider:JUSTIN MONTE, Contact Number: [phone] BMI: 30.17 Baseline Rhythm: Sinus Rhythm Indications: Chest pain Medical History Medical History: Hypertension, paroxysmal Afib, R knee replacement (2019) Cardiac Medications: Atenolol, lisinopril Allergies: NKA Cardiac Risk Factors: Hypertension, family hx Previous Cardiac Procedures: None Pretest Chest Pain Characteristics: None Exercise History: Physically active Physical Disabilities: None Lung Sounds: Clear to auscultation Heart Sounds: Regular Stress Test Details Test: Exercise stress testing was performed using a Grover protocol. Nuclear Acquisition: Rest Tc-99m/Stress Tc-99m 1 day Rest Isotope: Tc-99m Sestamibi. Dose: 11.0 Date: 09/03/2020 Injection Time: 1100 Stress Isotope: Tc-99m Sestamibi. Dose: 36.5 Date: 09/03/2020 Injection Time: 1330 HR Resting HR Supine: 65 bpm Max Heart Rate (APMHR): 168 bpm Resting HR Standin bpm Target HR (85% APMHR): 142 bpm Max HR Achieved: 150 bpm % of APMHR: 89 Recovery HR: 82 bpm HR response to stress: Normal HR response to stress Comment: Atenolol held for 24hrs BP Resting BP Supine: 126/84 mmHg Resting BP Standin/88 mmHg Max BP: 160/78 mmHg Recovery BP: 128/88 mmHg BP response to stress: Normal blood pressure response to stress. ECG Resting ECG: Sinus Rhythm Ectopy: None Stress ECG: Sinus Tachycardia ST Change: No significant ST segment changes noted Arrhythmia: None Recovery ECG: Sinus Rhythm Recovery ST Change: No significant ST segment changes noted Recovery Arrhythmia: None Clinical Reason for Termination: Fatigue Stress Symptoms: General Fatigue, Chest pressure Exercise duration: 10 min10 sec Highest Stage Reached: Stage 4: 4.2 mph at 16% grade. Exercise capacity: 12.07 METs Rate Pressure Product: [id number] Stress ECG Conclusion 1. The patient exercised for 10 minutes (12 METS). Exercise was stopped due to fatigue 2. The patient no symptoms or ECG changes suggestive of ischemia. 3. Patient's heart rate and blood pressure augmented appropriately. Stress Test Summary STAGE Time (mins) Speed (mph) Grade (%) HR BP SYMPTOMS METS Supine 65 126/84 Standing 79 120/88 1 3 1.7 10 109 128/84 4.6 2 6 2.5 12 125 140/80 SpO2 98%, Chest pressure 2/10 7 3 9 3.4 14 143 SpO2 97%, Chest pressure 4/10 10.2 4 12 4.2 16 SpO2 97%, Chest pressure 6/10 12.9 1 min recovery 138 160/78 SpO2 98%, Chest pressure 4/10 3 min recovery 100 152/80 Chest pressure 2/10 6 min recovery 82 128/88 Chest pressure resolved MPI Conclusion The ejection fraction was 61% with stress. There were no wall motion abnormalities. There is no evidence of ischemia on the imaging portion exam. This represents a normal SPECT stress test. Results of this test were relayed to the inpatient order ing team.
[2020-09-03 11:28] VITALS: BP 126/84; PULSE 65; RESP 18; TEMP 37; O2SAT 100
--- NOTE | 2020-09-03 14:42 | W.PM.DS.N ---
Date of service: 09/03/20 Time of Service: 14:42 DS: Diagnosis Discharge Diagnosis (1) Chest pressure: Status: Acute (2) Essential hypertension: Status: Chronic (3) Paroxysmal atrial fibrillation: Status: Chronic Discharge Plan Disposition Patient Disposition: HOME Condition: Stable Discharge Details Reason For Visit: Chest Pain Admit Date/Time: 09/02/20 12:02 Admit Provider: Fausitno Rogers Attending Provider: Faustino Rogers Primary Care Provider: David Domingo [facility] Hospital Course: This is a 50 y.o female with history of afib in 2013 on atenolol, HTN, vertigo, 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 She currently is on the intermittent fasting keto diet only eating once daily at 5 pm. She drinks coffee and water or tea throughout the day. She states she was ambulating day prior to admission up [place] when she started having chest pressure lasting approx 10 min without associated SOB or radiating symptoms. Chest pressure did not radiate anywhere and it was done after resting. It did return when ambulating home and going [place] back to the house 2 more times, but soon resolved. Day of admission however patient was not doing anything but sitting and had a bout that did not resolve with no associated symptoms. Labs in ED remarkable for elevated anion gap at 14.4, glucose 66. Likely due to the diet she is on. She is asymptomatic. She was admitted to m/s telemetry for further evaluation and monitoring. She states upon further review this pain started months ago but has been getting worse, since about winter time. Troponin remained negative, and most likely differentials included esophageal spasm vs GERD. She was given 2 doses of nitro in ED with little relief, followed by GI cocktail and omeprazole with relief of her symptoms. She underwent a stress test which showed no wall motion abnormalities, EF 61% with stress and no evidence of ischemia representing a normal SPECT. She had no reoccurrence of her symptoms while hospitalized but did during her stress test which was negative. She is stable and ready for discharge to home with no services. she will follow up outpatient with primary care provider. discharge discussed with Dr Rogers. Home Meds and New Rx's Prescriptions: Continued Shingrix gE Antigen Component 50 mcg suspension for reconstitution 50 mcg IM ONCE Qty: 1 RF: 0 (DME) Aerochamber MV Spacer See Rx Instructions .ROUTE .MEDSUPPLY Qty: 1 RF: 0 levalbuterol tartrate [Xopenex HFA] 45 mcg/actuation HFA aerosol inhaler 1 - 2 inh inhalation Q6H PRN (Reason: shortness of breath) Qty: 15 RF: 5 atenolol 50 mg tablet 50 mg PO DAILY Qty: 90 RF: 4 lisinopril 5 mg tablet 5 mg PO DAILY Qty: 30 RF: 3 finasteride [Propecia] 1 mg tablet 2 mg PO DAILY Qty: 180 RF: 3 multivitamin Capsule 1 cap PO DAILY RF: 0 Discharge Instructions Instructions: Chest Pain (DC) Stand Alone Forms: Nursing Discharge Form Referrals: David Domingo [Primary Care Provider] - 09/13/20 1:00 pm (with [facility]. Ronny Malcolm) Activity:: Activity as Tolerated Equipment/Supplies:: No Equipment Needed Diet:: As Tolerated Discharge Orders Discharge Orders: Discharge Order (Routine); Ordered 09/03/20 Ordered By: Shireen Gallagher DS: Summary Time Spent with Patient providing and/or coordinating discharge services: Less than 30 minutes Status at Discharge Functional status at discharge: independent ambulation Overall status at discharge: patient is back to baseline Mental Status: mental status grossly normal Speech and Movement: speech and movement normal Mood: congruent mood Affect: normal affect Exam Const General: cooperative, healthy appearing, comfortable and no acute distress Nutritional Appearance: average body habitus Orientation: alert, awake and oriented x3 HENMT Head: normal to inspection, normocephalic and atraumatic Mouth: oral mucosae normal Resp Effort & Inspection: normal respiratory effort Auscultation: clear to auscultation bilaterally Cardio Rate: regular rate Rhythm: regular rhythm Heart Sounds: no murmurs GI Inspection: normal to inspection Palpation: soft Auscultation: normal bowel sounds Skin General skin exam: no rashes or lesions noted Neuro General: patient alert, patient awake, patient oriented x3 and no focal motor deficits Other: Extrem General: normal to inspection and full ROM Psych Mental Status: mental status grossly normal Speech and Movement: speech and movement normal Mood: congruent mood Affect: normal affect DS: Data Vitals/I&O Vitals and I&O: Vital Signs Temperature 37.0 C 09/03/20 11:28 Temperature Source Tympanic 09/03/20 11:28 Pulse 65 09/03/20 11:28 Pulse Rhythm Regular 09/03/20 03:20 Respiratory Rate 18 09/03/20 11:28 Respiratory Effort Non-Labored 09/03/20 03:20 Respiratory Depth Normal 09/03/20 03:20 Respiratory Pattern Normal 09/03/20 03:20 Blood Pressure 126/84 09/03/20 11:28 Blood Pressure Position Sitting 09/02/20 10:24 Pulse Oximetry 100 09/03/20 11:28 Oxygen Delivery Method Room Air 09/03/20 11:28 Oxygen Flow Rate 0 09/03/20 11:28 Pain Level 0 09/03/20 11:28 Comment 09/02/20 17:00 Intake & Output 09/02/20 09/03/20 09/03/20 23:59 11:59 23:59 Intake Total 1600 / 1600 Output Total 900 / 900 300 / 300 Balance 700 / 700 -300 / -300 Weight 77.337 kg 77.2 kg Intake: IV 500 / 500 Oral 1100 / 1100 Output: Urine 900 / 900 300 / 300 Other: Urine Color Straw Yellow Urine Appearance Clear Clear Urine Odor Normal Normal Comment Void x1 in the toilet. Voiding Methods Toilet Toilet Data Completed and Pending Labs on day of discharge: Labs from last 24 hours 09/02/20 09/02/20 14:40 12:20 Troponin I < 0.05 SARS-CoV-2 (PCR) Negative [facility] Medical History Diverticulosis Essential hypertension (08/27/17) Paroxysmal atrial fibrillation (08/23/17) 1 symptomatic around 2013 Managed on atenolol Primary localized osteoarthritis of right knee s/p R TKA on 08/30/18 Right distal ureteral calculus Right trigger finger Injection: 02/23/20 Vertigo Occasional symptoms 2 episodes that sought treatment for Viral illness can't say for sure but mostly benign features of this illness Discussed w/u to include CT head and/or labs--she will hold off for another day or so Surgical History History of breast biopsy Benign biopsies 3 since the age of 14 yo History of total right knee replacement (TKR) Hysterectomy Tubal ligation prior to hysterectomy Parathyroid adenoma S/P resection 2002 S/P colonoscopy (~02/01/18) screening colonoscopy with 10 year recall. Status post arthroscopic surgery of left knee partial medial mensicectomy 2000 Status post right rotator cuff repair Distal clavicle excision 2012 Family History Mother Hypertension Osteoarthritis Father Unknown family medical history Alcohol abuse Sister Osteoarthritis S/p TKA in late 40s Son No problems noted. Daughter No problems noted. 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 and animals: No Sexually active: Yes Do you think of yourself as: straight/heterosexual Current gender identity: female What is your relationship status?: How often do you talk on the phone with friends or family?: once per week How often do you get together with friends or relatives?: three or more times per week Do you belong to any clubs or organized social groups?: no Panel score (0-1 are the most socially isolated patients): 2 What type of physical activity do you participate in: walking Duration: 45-60 minutes/day Frequency: 1-2 times per week Manisha/Religious: None Seatbelt use: always Drive intox or ride w/intox 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
[2020-09-03 15:37] VITALS: BP 128/86; PULSE 67; RESP 18; TEMP 36.7; O2SAT 99
[2020-09-03 20:24] VITALS: PULSE 75
== END 2020-09-03 15:36 | disposition home or self-care (01) ==
LOC: ER 10:24 → MS 12:54 → ER 09-04 09:44 → MS 09-04 09:47
PROVIDERS: Admitting Provider Family Medicine; Emergency Provider Physician Assistant; PCP Family Medicine; Visit Provider Family Medicine
DX: R07.89 Other chest pain (principal); I10 Essential (primary) hypertension; I48.0 Paroxysmal atrial fibrillation; R42 Dizziness and giddiness; K57.90 Diverticulosis of intestine, part unspecified, without perforation or abscess without bleeding; N20.1 Calculus of ureter; Z20.822 Contact with and (suspected) exposure to COVID-19
CPT/HCPCS: 36415; 78452; 80053; 87635; 93005; 96361; 96374; 99285; 71046; 83735; 83880; 84484; 85025; 93010; 93017; 99217; 99219; 99284; G0378

== ENCOUNTER 2020-09-19 06:16 | Day surgery (SDC) | payer OTHER, SELFPAY ==
[2020-09-19 06:30] VITALS: BP 119/80; PULSE 66; RESP 14; TEMP 36.4; O2SAT 97
[2020-09-19] MEDS: Sulfameth/Trimeth DS TAB 1 TAB PO (06:38)
[2020-09-19] MEDS: Lactated Ringers 1,000 ML 80 ML IV (06:45)
--- NOTE | 2020-09-19 06:58 | HPE_ITS ---
Date of service: 09/19/20 Time of Service: 06:59 Assessment and Plan Assessment and plan (1) Urinary incontinence due to urethral sphincter incompetence: Status: Acute Assessment and plan: For cystoscopy with transurethral injection of bulking agent History of Present Illness History of Present Illness Chief Complaint: Urinary incontinence due to ISD Narrative: This is a 50 year old woman who has had incontinence episodes with minimal activity. Her incontinent episodes are rarely associated with urgency. She presents for an injection of a bulking agent at the bladder neck. we had attempted an injection in the office but met with technical issues preventing adequate bulking agent being placed. Review of Systems Narrative: No fevers or chills No vision change or dysphasia Hx hyperparathyroidism. No diabetes or thyroid dysfunction No shortness of breath, cough or hemoptysis No current chest pain - recent hospitalization for chest pain with normal troponins and normal stress test No nausea, vomiting, hepatitis, ulcers, jaundice No seizures, strokes or peripheral neuropathy No bleeding disorders or anemia No gout PFSH Medical History Diverticulosis Essential hypertension (08/27/17) Paroxysmal atrial fibrillation (08/23/17) 1 symptomatic around 2013 Managed on atenolol Primary localized osteoarthritis of right knee s/p R TKA on 08/30/18 Right distal ureteral calculus Right trigger finger Injection: 02/23/20 Vertigo Occasional symptoms 2 episodes that sought treatment for Viral illness can't say for sure but mostly benign features of this illness Discussed w/u to include CT head and/or labs--she will hold off for another day or so Surgical History History of breast biopsy Benign biopsies 3 since the age of 14 yo History of total right knee replacement (TKR) Hysterectomy Tubal ligation prior to hysterectomy Parathyroid adenoma S/P resection 2002 S/P colonoscopy (~02/01/18) screening colonoscopy with 10 year recall. Status post arthroscopic surgery of left knee partial medial mensicectomy 2000 Status post right rotator cuff repair Distal clavicle excision 2012 Family History Mother Hypertension Osteoarthritis Father Unknown family medical history Alcohol abuse Sister Osteoarthritis S/p TKA in late 40s Son No problems noted. Daughter No problems noted. Social History Smoking/Tobacco Use Status: Never Second Hand Exposure: No Smoking risk assessment performed?: Yes Alcohol Intake: current Alcohol Intake frequency: a few times a week Alcohol type: beer, wine and hard liquor Drug use: Never Caregiver/Support person: No Household members: spouse Housing: house Communication Needs: None Do you need help understanding health information?: Never current occupation: [employer] Pets and animals: No Sexually active: Yes Do you think of yourself as: straight/heterosexual Current gender identity: female What is your relationship status?: How often do you talk on the phone with friends or family?: once per week How often do you get together with friends or relatives?: three or more times per week Do you belong to any clubs or organized social groups?: no Panel score (0-1 are the most socially isolated patients): 2 What type of physical activity do you participate in: walking Duration: 45-60 minutes/day Frequency: 1-2 times per week Manisha/Hoahaoism: None Seatbelt use: always Drive intox or ride w/intox tour bus driver: No Do you feel safe at home: Yes Do you feel safe in your relationship?: Yes Victim of physical abuse: No Victim of emotional abuse: Yes Victim of sexual abuse: No Would you like helpful sources: No Meds Allergies and Home Medications Allergies Allergy/AdvReac Type Severity Reaction Status Date / Time No Known Allergies Allergy Unverified 09/19/20 06:26 Home Medications Medication Instructions Recorded Confirmed Type multivitamin 1 cap PO DAILY 08/16/18 09/17/20 History atenolol 50 mg tablet 50 mg PO DAILY #90 tab 01/02/20 09/17/20 Rx inhalational spacing device #1 ea 02/21/20 02/23/20 Rx varicella-zoster gE vac,2 of 2 50 50 mcg IM ONCE #1 ea 02/21/20 09/17/20 Rx mcg IM suspension finasteride 1 mg tablet 2 mg PO DAILY #180 tab 06/26/20 09/17/20 Rx lisinopril 5 mg tablet 5 mg PO DAILY #90 tab 09/11/20 09/17/20 Rx Exam Const General: cooperative, healthy appearing and comfortable Neck Neck: supple Resp Effort & Inspection: normal respiratory effort Auscultation: clear to auscultation bilaterally Cardio Rate: regular rate Rhythm: regular rhythm Neuro General: patient alert, patient awake and patient oriented x3 Results Last Vital Signs Temp 36.4 C L 09/19/20 06:30 Pulse 66 09/19/20 06:30 Resp 14 09/19/20 06:30 BP 119/80 09/19/20 06:30 Pulse Ox 97 09/19/20 06:30
--- NOTE | 2020-09-19 06:58 | W.ANESPRE ---
General Info Date of Service Date Performed: 09/19/20 Height: 5 ft 2 in Weight: 76.1 kg Body Mass Index (BMI): 30.7 Surgical Procedure: Operation Date: 09/19/20 07:40 Proposed Procedures Side Surgeon p Cystoscopy/Injection COAPTITE Carloz Lanza MD Meds Allergies and Home Medications Allergies Allergy/AdvReac Type Severity Reaction Status Date / Time No Known Allergies Allergy Unverified 09/19/20 06:26 Home Medication Medication Instructions Recorded multivitamin 1 cap PO DAILY 08/16/18 atenolol 50 mg tablet 50 mg PO DAILY #90 tab 01/02/20 inhalational spacing device #1 ea 02/21/20 varicella-zoster gE vac,2 of 2 50 50 mcg IM ONCE #1 ea 02/21/20 mcg IM suspension finasteride 1 mg tablet 2 mg PO DAILY #180 tab 06/26/20 lisinopril 5 mg tablet 5 mg PO DAILY #90 tab 09/11/20 Current Visit Medications: Current Medications Generic Name Dose Route Start Last Admin Trade Name Víctor PRN Reason Stop Dose Admin Ringer's Solution 1,000 mls @ 80 mls/hr 09/19/20 06:00 09/19/20 06:45 IV 10/18/20 23:59 80 mls/hr INFUSION MAT Administration IV Miscellaneous Supplies 1 each 09/19/20 06:00 Iv Access IV 10/18/20 23:59 DIRECTED MAT Sodium Chloride 0 ml 09/19/20 06:00 Normal Saline Flush 10 Ml Syr IV 10/18/20 23:59 PRN PRN Sodium Chloride 0 ml 09/19/20 06:00 Normal Saline 10 Ml Vial IJ 10/18/20 23:59 DIRECTED PRN Sterile Water 0 ml 09/19/20 06:00 Water,Injection,Sterile 10 Ml Vial IJ 10/18/20 23:59 DIRECTED PRN Trimethoprim/Sulfamethoxazole 1 tab 09/19/20 06:00 09/19/20 06:38 Sulfameth/Trimeth Ds Tab PO 09/19/20 16:00 1 tab PREOP MAT Administration PFSH Active Problems Active Problems: Problem Status Onset Code Chest pressure R07.89 Right trigger finger M65.30 Encounter for screening for other viral diseases Z11.59 Left ureteral stone N20.1 Right distal ureteral calculus N20.1 Encounter for screening colonoscopy Z12.11 Parathyroid adenoma D35.1 History of breast biopsy Z98.890 Status post arthroscopic surgery of left knee Z98.890 Status post right rotator cuff repair Z98.890 Viral illness B34.9 Primary localized osteoarthritis of right knee M17.11 Diverticulosis K57.90 S/P colonoscopy ~02/01/18 Z98.890 Vertigo R42 Paroxysmal atrial fibrillation 08/23/17 I48.0 Essential hypertension 08/27/17 I10 Medical History Medical History Diverticulosis Essential hypertension (08/27/17) Paroxysmal atrial fibrillation (08/23/17) 1 symptomatic around 2013 Managed on atenolol Primary localized osteoarthritis of right knee s/p R TKA on 08/30/18 Right distal ureteral calculus Right trigger finger Injection: 02/23/20 Vertigo Occasional symptoms 2 episodes that sought treatment for Viral illness can't say for sure but mostly benign features of this illness Discussed w/u to include CT head and/or labs--she will hold off for another day or so Surgical History Surgical History History of breast biopsy Benign biopsies 3 since the age of 14 yo History of total right knee replacement (TKR) Hysterectomy Tubal ligation prior to hysterectomy Parathyroid adenoma S/P resection 2002 S/P colonoscopy (~02/01/18) screening colonoscopy with 10 year recall. Status post arthroscopic surgery of left knee partial medial mensicectomy 2000 Status post right rotator cuff repair Distal clavicle excision 2012 Tobacco Smoking/Tobacco Use Status: Never Second hand exposure: No Alcohol Alcohol Intake: current Alcohol intake frequency: a few times a week Alcohol type: beer, wine and hard liquor Substance Use Substance use: Never Vital Signs and Lab Results Vital Signs Most Recent Vital Signs in EMR: Most Recent Vital Signs Temp Pulse Resp BP Pulse Ox 36.4 C L 66 14 119/80 97 09/19/20 06:30 09/19/20 06:30 09/19/20 06:30 09/19/20 06:30 09/19/20 06:30 Lab Results Blood Type / Crossmatch: No Data to Display Complete Blood Count: White Blood Count 7.05 10^3/uL (4.4-10.8) 09/02/20 10:09/02/20 Red Blood Count 4.30 10^6/uL (3.93-5.22) 09/02/20 10:09/02/20 Hemoglobin 13.3 g/dL (11.2-15.7) 09/02/20 10:09/02/20 Hematocrit 41.0 % (36.0-46.0) 09/02/20 10:09/02/20 Platelet Count 306 10^3/uL (130-400) 09/02/20 10:09/02/20 Complete Metabolic Panel: Sodium Level 139 mmol/L (136-145) 09/02/20 10:09/02/20 Potassium Level 4.4 mmol/L (3.5-5.1) 09/02/20 10:09/02/20 Chloride Level 102 mmol/L (98-107) 09/02/20 10:09/02/20 Carbon Dioxide Level 22.6 mmol/L (21.0-32.0) 09/02/20 10:09/02/20 Blood Urea Nitrogen 14 mg/dL (7-18) 09/02/20 10:09/02/20 Creatinine 0.8 mg/dL (0.55-1.02) 09/02/20 10:09/02/20 Estimated GFR/1.73 m2 >= 60.00 (mL/min/1.73m2) 09/02/20 10:09/02/20 Magnesium Level 2.2 mg/dL (1.8-2.4) 09/02/20 10:09/02/20 Calcium Level 8.8 mg/dL (8.5-10.1) 09/02/20 10:09/02/20 Albumin 4.0 g/dL (3.4-5.0) 09/02/20 10:09/02/20 Glucose Level 66 mg/dL (74-106) L 09/02/20 10:09/02/20 Liver Function Panel: Alanine Aminotransferase (ALT/SGPT) 36 U/L (14-59) 09/02/20 10:09/02/20 Aspartate Amino Transf (AST/SGOT) 23 U/L (15-37) 09/02/20 10:28 09/02/20 Coagulation Panel: No Data to Display Cardiac Panel: Troponin I < 0.05 ng/mL (<0.06) 09/02/20 14:40 09/02/20 DL-Dqf-I-Type Natriuretic Peptide 124 pg/mL (<300) 09/02/20 10:28 09/02/20 Arterial Blood Gas: No Data to Display Venous Blood Gas: No Data to Display Pancreas Panel: No Data to Display Thyroid Panel: No Data to Display Infectious Disease: Coronavirus (COVID-19)(PCR) Negative (Negative) 09/02/20 12:20 09/02/20 Coronavirus 2019 Source Nasal/nares 09/02/20 12:20 09/02/20 Blood Cultures: No Data to Display Toxicology Panel: No Data to Display Panel: No Data to Display Imaging and Studies Imaging and Studies EKG Summary: 09/02/20: Conclusion Sinus bradycardia...rate< 60 Left ventricular hypertrophy...multiple voltage criteria Stress Test Summary: 09/03/20: MPI Conclusion The ejection fraction was 61% with stress. There were no wall motion abnormalities. There is no evidence of ischemia on the imaging portion exam. This represents a normal SPECT stress test. Results of this test were relayed to the inpatient ordering team. Echocardiogram Summary: 09/21/13: FINDINGS: LEFT VENTRICLE/LVEF: Normal size and systolic function. Estimated LVEF 65%. RIGHT VENTRICLE: Normal size and function. AORTIC VALVE: Trileaflet, opens well without regurgitation. MITRAL VALVE: Anatomically normal with trace regurgitation. TRICUSPID VALVE: Mild regurgitation. RSV/PA/RIGHT ATRIAL PRESSURE: RVS pressure 27 mm. of mercury. PULMONIC VALVE: Normal. ATRIA: Normal biatrial size. DIASTOLIC INDICES: Normal. GREAT VESSELS: Normal. PERICARDIUM: No effusion. Anesthesia Assessment and Plan Anesthesia History Personal History: No History of Anesthesia Complications Family History: No Family History of Anesthesia Complications Exercise Tolerance Exercise Tolerance: Metabolic Equivalents>4 Pertinent Negatives Pertinent Negatives: No Symptoms of GERD, No Major Cardiovascular Symptoms or Complaints (Recent hospitalization records reviewed) and No Major Pulmonary Symptoms or Complaints Cardiac & Pulmonary Exam Cardiac Exam: Normal S1/S2 Heart Sounds Pulmonary Exam: Clear Bilateral Breath Sounds Airway Exam Known Difficult Airway: No Mallampati Class: 1 Mouth Opening: Normal (> 3cm) Thyromental Distance: Greater than 3 cm Neck Range of Motion: Full ROM Neck Circumference: Normal Teeth Condition: Normal Dentition ASA Classification ASA Score: ASA 2 Emergency Case?: No NPO Status NPO Status: NPO Clears >2 hours, Solids >8 hours Status Status: History of Hysterectomy Anesthesia Plan Resuscitation Status: Full Code Anesthesia Technique: General Anesthesia Airway Planned: Natural Airway Monitors Used: Standard Monitors
[2020-09-19 07:03] VITALS: BMI 30.7
--- NOTE | 2020-09-19 07:42 | W.PM.DSUDISC ---
Discharge Plan Disposition Patient Disposition: HOME Condition: Stable Discharge Details Reason For Visit: Incontinence Attending Provider: Carloz Lanza Primary Care Provider: David Domingo Home Meds and New Rx's Prescriptions: No Action Shingrix gE Antigen Component 50 mcg suspension for reconstitution 50 mcg IM ONCE Qty: 1 RF: 0 (DME) Aerochamber MV Spacer See Rx Instructions .ROUTE .MEDSUPPLY Qty: 1 RF: 0 atenolol 50 mg tablet 50 mg PO DAILY Qty: 90 RF: 4 finasteride [Propecia] 1 mg tablet 2 mg PO DAILY Qty: 180 RF: 3 lisinopril 5 mg tablet 5 mg PO DAILY Qty: 90 RF: 1 multivitamin Capsule 1 cap PO DAILY RF: 0 Discharge Instructions Additional Instructions: no F/U appt needed but ask pt to call with progress report in @ 1 week Activity:: Activity as Tolerated Shower/Bathe:: 24 hours Diet:: As Tolerated Discharge Orders Discharge Orders: Discharge Order (Routine); Ordered 09/19/20 Ordered By: Carloz Lanza Discharge Data Discharge Comment: pt should void prior to discharge DS: Diagnosis Discharge Diagnosis (1) Urinary incontinence due to urethral sphincter incompetence: Status: Acute
--- NOTE | 2020-09-19 07:45 | W.PM.OP ---
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 She has leakage with minimal activity. She presents for an injection of a bulking agent at the bladder neck Procedure Description: The patient was given a dose of preoperative oral antibiotics. She was brought to the operating room on 09/19/2020. She was then given general anesthesia without intubation. Her genitalia was prepped and draped. 2% Xylocaine jelly was instilled into the urethra to act as a local anesthetic. A 20 Occitan urethrotome sheath was passed through the urethra into the bladder. The bladder neck was inspected with a 30 degree lens. The bladder neck appeared open at rest and I did not see any residual bulking agent at the bladder neck (after the procedure in the office). I then used a transurethral injection system to inject a total of 0. 75 mL of coapt tight at the bladder neck. We injected in 3 different locations and there appeared to be good coaptation of the bladder neck mucosa when it was viewed cystoscopically. The scope was removed. She tolerated the procedure with no complications.
[2020-09-19 07:50] VITALS: BP 106/71; PULSE 63; RESP 16; TEMP 36.6; O2SAT 100
[2020-09-19] MEDS: Lidocaine 2% Jelly 6 ML SYR (07:52)
[2020-09-19 08:20] VITALS: BP 115/85; PULSE 57; RESP 18; TEMP 36.6; O2SAT 100
--- NOTE | 2020-09-19 09:01 | W.ANESPOSTOP ---
Postoperative Evaluation Date, Time and Location Date Performed: 09/19/20 Time Performed: 08:50 Patient Location: Day Surgery Unit Vital Signs Most Recent Imported Vital Signs: Most Recent Vital Signs Temp Pulse Resp BP Pulse Ox 36.6 C 57 L 18 115/85 100 09/19/20 08:20 09/19/20 08:20 09/19/20 08:20 09/19/20 08:20 09/19/20 08:20 Pain Score Most Recent Pain Score: Most Recent Pain Score Pain Level 1 09/19/20 08:20 Assessment Mental Status: Awake (Alert & Oriented to Patient Baseline) Airway and Respiratory Function: Patent airway with normal (patient baseline) respiratory exam Cardiovascular Function: Hemodynamically Stable Hydration Status: Adequately Hydrated Nausea & Vomiting: No Nausea or Vomiting Pain: Pt. Denies Any Pain Peripheral Nerve Block: Patient did not receive a nerve block
== END 2020-09-19 08:50 | disposition home or self-care (01) ==
PROVIDERS: PCP Family Medicine; Visit Provider Urology
PROC: (CPT 51715; principal; 2020-09-19 07:30)
DX: N36.42 Intrinsic sphincter deficiency (ISD) (principal); N39.3 Stress incontinence (female) (male)
CPT/HCPCS: 51715; J1885; J2001; J2405; L8606

== ENCOUNTER 2020-11-06 00:53 | Outpatient (CLI) | payer OTHER, SELFPAY ==
--- NOTE | 2020-11-06 | DI.US_ITS ---
Exam(s) US BREAST RT COMPLETE EXAM: US BREAST RT COMPLETE CLINICAL HISTORY: 3-6 MO F/U ABNORMAL MAMMO,R92.8. TECHNIQUE: Complete ultrasound of the breast was performed including all 4 quadrants, the retroareo lar region, and the ipsilateral axilla. COMPARISON: Prior mammograms were reviewed. FINDINGS: See combined report IMPRESSION: See combined report Appropriate follow-up is repeat ultrasound examination at the time for next mammogram which is in Mar.. BI-RADS Category 3 - 6 month - Probably Benign Finding: Recommend follow-up mammography in 6 months Breast Density - Category C - Heterogeneously dense Breast density Category C or D implies that the patient has dense breast tissue. Dense breast tissue can make it harder to find cancer on a mammogram. Dense breast tissue is also associated with an incr eased risk of breast cancer. This information about the result of the mammogram report was provided to the patient to raise their awareness. Use this report when you speak with the patient about their risks for breast cancer, which includes their family history. At that time, you may recommend additional screening tests (Ultrasoun d or MRI) as these tests may add significant information. A negative radiographic report should not delay biopsy if a dominant or clinically suspicious mass is present. Up to ten percent of cancers are not identified on mammography. A negative report may reinforce clinical impression. Adenosis and dense breasts may obscure an underlying neoplasm. False positive reports average 6 to 10%. Patient will receive a letter notifying them of these results.
--- NOTE | 2020-11-06 08:53 | DI.MAMMO_ITS ---
Exam(s) MAMMO DIAGNOSTIC UNI EXAM: MAMMO DIAGNOSTIC UNI -RIGHT AND COMPLETE RIGHT BREAST ULTRASOUND CLINICAL HISTORY: 3-6 MO F/U ABNORMAL MAMMO,R92.8. TECHNIQUE: MOST CC AND MLO mammographic images were obtained with 3D [employer] and util izing computer aided detection (CAD). ALSO PERFORMED COMPLETE ULTRASOUND EXAMINATION OF THE RIGHT SEBAS AST, including all 4 quadrants and the retroareolar region and the axilla. COMPARISON: Prior mammograms dating back to 2017, the most recent being 2020. FINDINGS: The previously described noncalcified well-defined lobulated nodule in the lateral aspect of the [facility] breast is unchanged mammographically from March 2020. No additional mammographic findings in the right breast. COMPLETE RIGHT BREAST ULTRASOUND: At 10 o'clock position the previously described 5-6 millimeter slightly lobulated nodule appears unch anged and most probably corresponds to the finding on the mammogram. Either lymph node or possible fi broadenoma. There is a 2nd finding seen on ultrasound today which is at the 9 o'clock position, difficult to dete rmine if it is an actual nodule or asymmetric lobular. This measures approximately 9 x 5 millimeters, slightly lobulated. Possible fibroadenoma or lymph node. Both nodules described above on ultrasound exhibits neutral through transmission, without worrisome d ecreased through transmission. IMPRESSION: Lateral right breast findings as described above. Appropriate follow-up, as discussed by myself with the patient today, is six-month follow-up the true bring back to yearly mammogram of March 2021. At that time repeat ultrasound examination should be performed to ensure stability of the 2 findings seen in the right breast at the 9 and 10 o'clock pos itions.. Indeed, given the density of her fibroglandular tissue I feel would be prudent to perform a bilateral breast ultrasound examination at that time. The patient was informed of the findings and follow-up recommendations prior to leaving the [facility] today. BI-RADS Category 3 - 6 month - Probably Benign Finding: Recommend follow-up mammography in 6 months Breast Density - Category C - Heterogeneously dense Breast density Category C or D implies that the patient has dense breast tissue. Dense breast tissue can make it harder to find cancer on a mammogram. Dense breast tissue is also associated with an incr eased risk of breast cancer. This information about the result of the mammogram report was provided to the patient to raise their awareness. Use this report when you speak with the patient about their risks for breast cancer, which includes their family history. At that time, you may recommend additional screening tests (Ultrasoun d or MRI) as these tests may add significant information. A negative radiographic report should not delay biopsy if a dominant or clinically suspicious mass is present. Up to ten percent of cancers are not identified on mammography. A negative report may reinforce clinical impression. Adenosis and dense breasts may obscure an underlying neoplasm. False positive reports average 6 to 10%. Patient will receive a letter notifying them of these results.
== END 2020-11-06 01:13 ==
PROVIDERS: PCP Family Medicine; Visit Provider Family Medicine
DX: Z09 Encounter for follow-up examination after completed treatment for conditions other than malignant neoplasm (principal); R92.8 Other abnormal and inconclusive findings on diagnostic imaging of breast; N63.11 Unspecified lump in the right breast, upper outer quadrant; N63.15 Unspecified lump in the right breast, overlapping quadrants
CPT/HCPCS: 76642; 77061; 77065; G0279

== ENCOUNTER 2021-01-13 02:25 | Outpatient (CLI) | payer OTHER, SELFPAY ==
[2021-01-13 11:28] LABS: Source Nasal/Nares
[2021-01-13 17:01] LABS: COVID-19 PCR Negative (Negative)
== END 2021-01-13 02:26 | disposition home or self-care (01) ==
LOC: LBO 02:25
PROVIDERS: PCP Family Medicine; Visit Provider Student in an Organized Health Care Education/Training Program
DX: Z20.822 Contact with and (suspected) exposure to COVID-19 (principal); Z01.818 Encounter for other preprocedural examination
CPT/HCPCS: 87635

== ENCOUNTER 2021-01-14 10:00 | Day surgery (SDC) | payer OTHER, SELFPAY ==
[2021-01-14 10:57] VITALS: BP 140/91; PULSE 66; RESP 14; TEMP 36.9; O2SAT 100
[2021-01-14] MEDS: Sodium Bicarbonate 50 MEQ/50 ML VIAL (11:25)
--- NOTE | 2021-01-14 11:27 | W.PM.DSUDISC ---
Documented by User: MARGRET Palomo 01/14/21 11:32 Discharge Plan Disposition Patient Disposition: HOME Condition: Good Discharge Details Reason For Visit: RMF Trigger release Attending Provider: Taj Arellano Primary Care Provider: Mirna Staley Home Meds and New Rx's Prescriptions: New ibuprofen 600 mg tablet 600 mg PO TID PRN (Reason: pain) Qty: 90 RF: 0 acetaminophen 500 mg capsule 1,000 mg PO Q8H PRN PRNQty: 90 RF: 0 Continued Shingrix gE Antigen Component 50 mcg suspension for reconstitution 50 mcg IM ONCE Qty: 1 RF: 0 (DME) Aerochamber MV Spacer See Rx Instructions .ROUTE .MEDSUPPLY Qty: 1 RF: 0 atenolol 50 mg tablet 50 mg PO DAILY Qty: 90 RF: 4 finasteride [Propecia] 1 mg tablet 2 mg PO DAILY Qty: 180 RF: 3 lisinopril 5 mg tablet 5 mg PO DAILY Qty: 90 RF: 1 omeprazole 20 mg capsule,delayed release(DR/EC) 20 mg PO DAILY Qty: 90 RF: 3 multivitamin Capsule 1 cap PO DAILY RF: 0 Discharge Instructions Stand Alone Forms: Adan Beaver Finger Release Referrals: Taj Arellano MD [ [facility] STAFF PHYSICIAN] - Activity:: Activity as Tolerated Remove Dressings/Wound Care:: 48 hours Shower/Bathe:: 48 hours Diet:: As Tolerated Discharge Orders Discharge Orders: Discharge Order (Routine); Ordered 01/14/21 Ordered By: Chris Hall DS: Diagnosis Discharge Diagnosis (1) Trigger finger, right middle finger: Status: Acute Documented by User: Taj Arellano MD 01/14/21 11:38 Discharge Plan Disposition Patient Disposition: HOME Condition: Good Discharge Details Reason For Visit: RMF Trigger release Attending Provider: Taj Arellano Primary Care Provider: Mirna Staley Home Meds and New Rx's Prescriptions: New ibuprofen 600 mg tablet 600 mg PO TID PRN (Reason: pain) Qty: 90 RF: 0 acetaminophen 500 mg capsule 1,000 mg PO Q8H PRN PRNQty: 90 RF: 0 Continued Shingrix gE Antigen Component 50 mcg suspension for reconstitution 50 mcg IM ONCE Qty: 1 RF: 0 (DME) Aerochamber MV Spacer See Rx Instructions .ROUTE .MEDSUPPLY Qty: 1 RF: 0 atenolol 50 mg tablet 50 mg PO DAILY Qty: 90 RF: 4 finasteride [Propecia] 1 mg tablet 2 mg PO DAILY Qty: 180 RF: 3 lisinopril 5 mg tablet 5 mg PO DAILY Qty: 90 RF: 1 omeprazole 20 mg capsule,delayed release(DR/EC) 20 mg PO DAILY Qty: 90 RF: 3 multivitamin Capsule 1 cap PO DAILY RF: 0 Discharge Instructions Stand Alone Forms: Adan Beaver Finger Release Referrals: Tja Arellano MD [ [facility] STAFF PHYSICIAN] - Activity:: Activity as Tolerated Remove Dressings/Wound Care:: 48 hours Shower/Bathe:: 48 hours Diet:: As Tolerated Discharge Orders Discharge Orders: Discharge Order (Routine); Ordered 01/14/21 Ordered By: Chris Hall
--- NOTE | 2021-01-14 11:38 | ROE_ITS ---
Date of service: 01/14/21 Time of Service: 11:39 Operative Note Operative Note DATE OF PROCEDURE: 01/14/21 PRE-OP DIAGNOSIS: Right Middle Finger Trigger Finger POST-OP DIAGNOSIS: same PROCEDURE: Trigger Finger Release - Right Middle Finger SURGEON: Taj Arellano ANESTHESIA TYPE: Local By Surgeon Refer to Anesthesia Record ESTIMATED BLOOD LOSS: 0 PATHOLOGY: none sent COMPLICATIONS: None Patient was transported to: same day Patient's condition: stable Indications: I have seen Dinora in clinic for symptoms of a trigger finger. The catching, clicking, locking, and pain limited function. The diagnosis of trigger finger was evident. The symptoms had not responded to conservative measures. I discussed trigger finger release with the patient. I reviewed the risks of the procedure to include, but not limited to, bleeding, infection, pain, stiffness, incomplete release, damage to nerves or vessels, continued catching, recurrence. Despite these risks, the patient elected to proceed. Findings: There was a tightened A1 daryl which was released. The flexor tendons were inspected and the patient was able to move the finger without any catching, clicking, or locking. There was some hypertrophic, inflammatory synovium which was resected. Procedure Description: Dinora was greeted in the preoperative holding area where the correct side was identified and marked. The consent was reviewed with the patient and signed. All questions were answered. She was taken back to the operating room. The patient was placed into the supine position on the operating room table with the right arm on an arm board. All bony prominences were well padded. No prophylactic antibiotics were administered since this was a clean, elective hand surgical case. The right arm was then prepped with Chloraprep and draped in a standard fashion with stockin ette and extremity drape. A timeout to confirm correct identity, side and site, procedure, allergies, anesthesia, and medical concerns was performed. The surgical site was marked as a longitudinal incision directly over the A1 daryl of the involved digit. This was confirmed with palpation during finger flexion. This area, overlying the metacarpal head, was then anesthetized with 1% Lidocaine. The patient tolerated this well and once the anesthetic had setup, the procedure began. A longitudinal incision was made through skin only, approximately 1cm. The deep tissues were dissected bluntly. Once the A1 daryl and flexor tendons were identified the soft tissue including neurovascular structures were retracted medially and laterally. There were no crossing structures over the A1 daryl. The proximal edge of the daryl was identified and the daryl was incised with tenotomy scissors. There was a release of the tendons once this was fully released. The tendons were then removed from the wound and inspected. Excess synovium was resected. The tendons were then returned and Dinora was asked to move the finger into deep flexion and back to extension. There was no recreation of the pre-operative symptoms. The hand was then once more inspected for any A0 daryl or area of possible constriction. The wound was then irrigated and the skin was closed with a 4-0 Nylon. This was dressed with gauze and a Conform dressing. Dinora tolerated the procedure well and was returned to the Same Day Surgery area in a stable condition suffering no known complication.
[2021-01-14 11:42] VITALS: BP 144/89; PULSE 61; RESP 16; TEMP 36.7; O2SAT 100
== END 2021-01-14 12:00 | disposition home or self-care (01) ==
LOC: SUR 12:28
PROVIDERS: PCP Family Medicine; Visit Provider Student in an Organized Health Care Education/Training Program
PROC: (CPT 26055; principal; 2021-01-14 14:45)
DX: M65.331 Trigger finger, right middle finger (principal)
CPT/HCPCS: 26055

== ENCOUNTER 2021-04-10 01:02 | Outpatient (CLI) | payer OTHER, SELFPAY ==
--- NOTE | 2021-04-10 | DI.US_ITS ---
Exam(s) US BREAST LT COMPLETE US BREAST RT COMPLETE MG MAMMO DIAGNOSTIC BI EXAM: MG MAMMO DIAGNOSTIC BI AND BILATERAL COMPLETE BREAST ULTRASOUND CLINICAL HISTORY: Screening study,h/o biopsy,z98.890,z12.39. TECHNIQUE: BOTH CC AND MLO VIEWS OF BOTH BREASTS were obtained with 3D tomosynthesis technique and u tilizing computer aided detection (CAD). BILATERAL COMPLETE BREAST ULTRASOUND was performed including all 4 quadrants of both breasts, the ret roareolar regions, and both axillary regions. COMPARISON: Prior mammograms were reviewed, the most recent being March and October 2020. Prior [facility] breast ultrasound examinations were also reviewed.. FINDINGS: BILATERAL MAMMOGRAM: The fibroglandular tissue pattern is again noted be dense, this somewhat decreasing the sensitivity m ammogram for finding hidden underlying lesions. Previously described benign-appearing nodular density laterally in the right breast remains unchanged . There is subtle suggestion of another more centrally located nodule lateral of center 3D imaging. Additional spot compression 3D view performed today is equivocal for a true nodule at this location on mammography. No new mammographic findings in the opposite-left breast. There are no malignant-appearing microcalc ification groups in either breast. There is no new architectural distortion or skin thickening-retra ction. BILATERAL COMPLETE BREAST ULTRASOUND: In the RIGHT BREAST the 2 previously described findings at the 9 and 10 o'clock positions remain unch anged. At the 9 o'clock position there is an unchanged 9 x 5 millimeter slightly lobulated wider than taller nodule which exhibits neutral through transmission, unchanged. At the 10 o'clock position there is a similar appearing but slightly smaller unchanged nodule again n oted which measures 5 x 3 millimeters, also wider than taller and exhibiting neutral through transmis keenan. There are 2 new findings in the right breast. One of these is a deep cyst at 4 o'clock position which is wider than taller, measuring 8 millimeters by 5 millimeters. The other new findings at the 3 o'clock position, more superficially located and is either a tight co nglomeration of microcysts or hemorrhagic microcyst. This is wider than taller, measures 7 x 5 radha meters and exhibits slightly increased through transmission. None of the above findings in the right breast exhibit concerning decreased through transmission. There is no significant adenopathy in the right axilla. In the LEFT BREAST there are 3 findings..... At the 1 o'clock position there is a well-defined wider than taller 7 x 3 millimeter nodule with slig htly increased through transmission, either hemorrhagic microcyst or fibroadenoma. At the 4 o'clock position there is a similar but slightly smaller wider than taller 6 x 3 millimeter nodule with neutral through transmission, either hemorrhagic microcyst or fibroadenoma. At the 10 o'clock position there is a deep wider than taller 5 x 2 millimeter nodule which is either hemorrhagic microcyst or fibroadenoma. There is no significant adenopathy in the left axilla. IMPRESSION: 1. Dense bilateral fibroglandular tissue on mammography. Stable mammographic findings. 2. Multiple findings in both breasts on today's ultrasound, as described individually above. Those p reviously present in the right breast on prior ultrasound examinations remain stable (9 o'clock and 1 0 o'clock positions). There is also a new deep benign cyst at 4 o'clock position. There is also a n ew finding at 3 o'clock position as described above. 3. On today's ultrasound of the opposite-left breast (1st time ultrasound of left breast) we find 3 f indings hidden subjacent to her dense fibroglandular tissue on 3D mammography, all similar in appeara nce to the right breast findings and most probably hemorrhagic microcysts or fibroadenomas. Appropriate follow-up, as discussed by myself with the patient today, is repeat BILATERAL BREAST ULTR ASOUND in 6 months to ensure stability of the multiple bilateral ultrasound findings described above. BI-RADS Category 3 - 6 month - Probably Benign Finding: Recommend follow-up mammography in 6 months Breast Density - Category C - Heterogeneously dense Breast density Category C or D implies that the patient has dense breast tissue. Dense breast tissue can make it harder to find cancer on a mammogram. Dense breast tissue is also associated with an incr eased risk of breast cancer. This information about the result of the mammogram report was provided to the patient to raise their awareness. Use this report when you speak with the patient about their risks for breast cancer, which includes their family history. At that time, you may recommend additional screening tests (Ultrasoun d or MRI) as these tests may add significant information. A negative radiographic report should not delay biopsy if a dominant or clinically suspicious mass is present. Up to ten percent of cancers are not identified on mammography. A negative report may reinforce clinical impression. Adenosis and dense breasts may obscure an underlying neoplasm. False positive reports average 6 to 10%. Patient will receive a letter notifying them of these results.
== END 2021-04-10 01:22 ==
PROVIDERS: PCP Family Medicine; Visit Provider Family Medicine
DX: Z12.31 Encounter for screening mammogram for malignant neoplasm of breast (principal); R92.8 Other abnormal and inconclusive findings on diagnostic imaging of breast; N60.11 Diffuse cystic mastopathy of right breast; N60.22 Fibroadenosis of left breast; N60.12 Diffuse cystic mastopathy of left breast; N60.81 Other benign mammary dysplasias of right breast; Z98.890 Other specified postprocedural states
CPT/HCPCS: 76642; 77062; 77066; G0279

== ENCOUNTER → 2021-08-15 08:20 | Outpatient (CLI) | payer OTHER, SELFPAY ==
--- NOTE | 2021-08-15 08:00 | DI.RAD_ITS ---
Exam(s) XR ANKLE RT COMPLETE EXAM: XR ANKLE RT COMPLETE CLINICAL HISTORY: Effusion M25.471 RT ANKLE EFFUSION. TECHNIQUE: 2D digital imaging was performed. Three views. COMPARISON: No exams were available for comparison FINDINGS: BONES: No acute fracture is present. No bony destructive lesion is seen. Tiny heel spur. Chronic ap pearing tiny bony densities beneath the tip of the medial malleolus. No talar dome defect. JOINTS: The ankle mortise is normally aligned. SOFT TISSUE: Swelling around the malleoli. Joint effusion visible. IMPRESSION: Joint effusion and soft tissue swelling. DATA REPOSITORY: RADIATION DOSE DELIVERED:
[2021-08-15 11:03] LABS: Abs Immature Grans 0.07 10^3/uL (0.0-0.06); Absolute Basophil Count 0.03 10^3/uL (0.0-0.2); Absolute Eosinophil Count 0.06 10^3/uL (0.0-0.7); Absolute Neutrophil Count 9.44 10^3/uL (1.2-6.7); Basophils % 0.2; Eosinophils % 0.5; HCT 38.9 % (36.0-46.0); HGB 12.4 g/dL (11.2-15.7); Immature Grans % 0.5; Lymphocytes % 14.7; MCH 31.3 pg (27.0-33.0); MCHC 31.9 % (32.0-36.0); MCV 98 fL (80-95); MPV 9.3 fL (8.0-11.0); Monocytes % 10.9; Neutrophils % 73.2; Platelet Count 351 10^3/uL (130-400); RBC 3.96 10^6/uL (3.93-5.22); RDW-SD 46.3 fL
[2021-08-15 11:06] LABS: Absolute Monocyte Count 1.41 10^3/uL (0.1-0.8); ESR 13 mm/hr (0-30)
[2021-08-15 11:23] LABS: C-Reactive Protein 8.82 mg/dL (0.0-0.3); Uric Acid 1.8 mg/dL (2.6-6.0)
[2021-08-18 10:58] LABS: Lyme Ab w Rflx to Lyme Confirm Negative (Negative)
[2021-08-18 20:55] LABS: Anaplasma phagocytophilum Negative (Negative); B. miyamotoi PCR Negative (Negative); Babesia divergens/MO-1 Negative (Negative); Babesia duncani Negative (Negative); Babesia microti Negative (Negative); Ehrlichia chaffeensis Negative (Negative); Ehrlichia ewingii/canis Negative (Negative); Ehrlichia muris eauclairensis Negative (Negative)
== END ==
PROVIDERS: PCP Family Medicine; Visit Provider Student in an Organized Health Care Education/Training Program
DX: M25.471 Effusion, right ankle (principal); M77.31 Calcaneal spur, right foot; M79.89 Other specified soft tissue disorders; M25.462 Effusion, left knee; M25.461 Effusion, right knee
CPT/HCPCS: 36415; 85652; 87798; 73610; 84550; 85025; 86140; 86618

== ENCOUNTER 2021-08-17 17:57 | Outpatient (REF) | payer OTHER, SELFPAY ==
[2021-08-17 20:43] LABS: Clarity Cloudy; Mononuclear Cells 33 %; Nucleated Cells 6225 uL (0); Polynuclear Cells 67 %
[2021-08-17 20:44] LABS: Clarity Cloudy; Mononuclear Cells 79 %; Nucleated Cells 19530 uL (0); Polynuclear Cells 21 %
[2021-08-17 21:18] LABS: Crystals (BF) No Crystals seen
[2021-08-17 21:19] LABS: Crystals (BF) No Crystals seen
== END 2021-08-17 17:58 | disposition home or self-care (01) ==
LOC: LBN 17:57
PROVIDERS: PCP Family Medicine; Visit Provider Student in an Organized Health Care Education/Training Program
DX: M25.462 Effusion, left knee (principal); M25.471 Effusion, right ankle
CPT/HCPCS: 87070; 87205; 89051; 89060

== ENCOUNTER 2021-08-20 17:53 | Outpatient (CLI) | payer OTHER, SELFPAY ==
[2021-08-20 12:30] LABS: HCT 37.4 % (36.0-46.0); HGB 12.5 g/dL (11.2-15.7); MCH 31.5 pg (27.0-33.0); MCHC 33.4 % (32.0-36.0); MCV 94 fL (80-95); MPV 8.5 fL (8.0-11.0); Platelet Count 466 10^3/uL (130-400); RBC 3.97 10^6/uL (3.93-5.22); RDW 12.7 % (11.7-14.6); RDW-SD 44.3 fL; WBC 13.77 10^3/uL (4.4-10.8)
[2021-08-20 13:30] LABS: C-Reactive Protein 4.31 mg/dL (0.0-0.3)
[2021-08-20 21:42] LABS: Rheumatoid Factor <8.6 IU/mL (<12.0)
[2021-08-21 09:25] LABS: Cyclic Citrullinated Peptide <2.5 U/mL (<5.0)
[2021-08-21 11:36] LABS: dsDNA Ab, IgG <12.3 IU/mL (<30.0)
[2021-08-21 11:56] LABS: Sm (Smith) Ab, IgG 4.3 Units (<20.0)
[2021-08-21 14:42] LABS: ANA Interpretation Negative (Negative)
== END 2021-08-20 17:54 | disposition home or self-care (01) ==
LOC: LBO 17:56
PROVIDERS: Visit Provider Student in an Organized Health Care Education/Training Program
DX: M13.0 Polyarthritis, unspecified (principal)
CPT/HCPCS: 36415; 85027; 86200; 86038; 86140; 86225; 86235; 86431

== ENCOUNTER 2021-08-25 10:07 | Emergency (ER) | payer OTHER, SELFPAY ==
[2021-08-25 10:16] VITALS: BP 146/99; PULSE 74; RESP 17; TEMP 36.6; O2SAT 96
--- NOTE | 2021-08-25 11:00 | DI.RAD_ITS ---
Exam(s) XR KNEE RT 3V AP,[place] EXAM: XR KNEE RT 3V AP,[place] CLINICAL HISTORY: Knee pain, Swelling Hx TKR. TECHNIQUE: 2D digital imaging was performed. Three views. COMPARISON: CR XR KNEE LT 3V AP,[place] from 08/25/2021 FINDINGS: BONES: No acute fracture is present. No bony destructive lesion is seen. A total knee prosthesis is p resent. There are no surrounding abnormal bony lucencies. JOINTS: The knee is normally aligned. A moderate-sized joint effusion is seen. SOFT TISSUE: Normal. IMPRESSION: Intact knee prosthesis. Joint effusion. DATA REPOSITORY: RADIATION DOSE DELIVERED:
--- NOTE | 2021-08-25 11:00 | DI.US_ITS ---
Exam(s) US LOWER EXTREMITY VENOUS LT EXAM: US LOWER EXTREMITY VENOUS LT CLINICAL HISTORY: Pain, Popliteal fossa, R/O Bakers Cyst, DVT. TECHNIQUE: Lower extremity venous ultrasound performed using grayscale, color-flow, and spectral Do ppler analysis. COMPARISON: No exams were available for comparison FINDINGS: The common femoral, femoral and popliteal veins demonstrate normal compressibility, augmentation, and color Doppler. The posterior tibial veins are patent. No saphenous vein thrombosis or other superfi cial venous thrombosis is seen. There is a small Arreola's cyst measuring 1.1 x 2 point 4 x 1.9 cm. IMPRESSION: Small Arreola's cyst. No evidence of DVT. DATA REPOSITORY:
--- NOTE | 2021-08-25 11:00 | DI.RAD_ITS ---
Exam(s) XR KNEE LT 3V AP,[place] EXAM: XR KNEE LT 3V AP,[place] CLINICAL HISTORY: Knee Pain, Hx of swelling. TECHNIQUE: 2D digital imaging was performed. Three views. COMPARISON: CR XR knee RT 1V from 09/14/2018 FINDINGS: BONES: No acute fracture is present. No bony destructive lesion is seen. JOINTS: There is minimal periarticular spurring. The knee is normally aligned. A small joint effusio n is seen. SOFT TISSUE: Normal. IMPRESSION: Small joint effusion. DATA REPOSITORY: RADIATION DOSE DELIVERED:
--- NOTE | 2021-08-25 11:09 | ED.GENADUL_ITS ---
Discharge Plan Disposition Patient Disposition: HOME Condition: Stable Discharge Details Clinical Impression: Arthralgia Primary Care Provider: Mirna Staley ED Provider: Genevieve Mckeon Home Meds and New Rx's Prescriptions: Continued atenolol 50 mg tablet 50 mg PO DAILY Qty: 90 4RF Rx Instructions: Take 1 tab PO daily for atrial fibrillation lisinopril 10 mg tablet 10 mg PO DAILY Qty: 90 3RF tramadol 50 mg tablet 50 mg PO BID PRN (Reason: pain) Qty: 20 0RF omeprazole 20 mg capsule,delayed release(DR/EC) 20 mg PO DAILY Qty: 90 3RF finasteride [Propecia] 1 mg tablet 2 mg PO DAILY Qty: 180 5RF prednisone 10 mg tablet 10 mg PO DAILY Qty: 30 0RF Rx Instructions: Take 3 pills x 5 days, then 2 pills x 5 days, then 1 pill x 5 days multivitamin Capsule 1 cap PO DAILY Discharge Instructions Instructions: Arthralgia (ED) Additional Instructions: Please continue taking the prednisone as previously prescribed. I did give you a dose of IV antibiotic due to the increase in your labs today. This may be caused from the prednisone. There is no evidence of urinary tract infection. Rest, ice, compression, elevation. Please take Tylenol or Ibuprofen with food every 4-6 hours as needed for pain and swelling. Please follow-up with rheumatology or with orthopedics as discussed by Dr. Arellano. Follow up with primary care provider in 3-5 days. Return to ED sooner if any worsening or concerns. Increase oral fluids. Referrals: Mirna Staley MD [Primary Care Provider] - Discharge Data Discharge Date/Time-TO BE ENTERED AT DEPARTURE: 08/25/21 14:00 Medical Decision Making 51-year-old female presents to the ER with chief complaint of joint pain, myalgias, joint swelling which has been ongoing for the last 1 and half weeks. Initially began with right ankle swelling. She has been followed by orthopedics and had arthrocentesis and placed on a steroid taper. Reports that the myalgias have worsened and are worse in the AM. She is still taking prednisone 20 mg daily. She is also taking tramadol at home which helps somewhat. Last took tramadol last night. She is afebrile upon arrival alert and oriented x4. Appears nonseptic. She does have a past medical history of hypertension, atrial fibrillation, diverticulosis, kidney stone. Surgical history includes breast biopsy, right total knee replacement, hysterectomy arthroscopic surgery left knee, parathyroid adenoma parathyroidectomy. At this time labs repeated last return August 20. Sed rate CRP ordered procalcitonin CBC CMP, bilateral knee x-rays and a left lower extremity ultrasou nd to rule out Arreola's cyst versus DVT. Differential diagnosis includes osteoarthritis, but else Arreola's cyst, DVT, sepsis, although patient does not appear toxic at this time. 1213: Preliminary ultrasound result per holter technician negative for DVT, 2 and half centimeter Arreola's cyst on the left CBC shows white blood cell count of 15.67, platelet count 473, absolute neutrophils 12.3, monocytes 1.8 ESR 70, glucose 110 ALT 93, C-reactive protein 4.46 The increase in white blood cell count absolute neutrophils sed rate could be due to the steroids however I will consider antibiotics. 1 g ceftriaxone IV ordered 1 L normal saline. 1248: Spoke with Dr. Arellano with Ortho who is familiar with patient, he does not recommend knee aspiration at this time.. Discussed patient case and details with him and patient. Patient reevaluation, she reports feeling much better. She does have a rheumatology appointment on Wednesday a.m. Did discuss home care she does have some tramadol left at home which she will continue to take. I did offer a refill which she declined at this time. Discussed strict return instructions. Patient has remained hemodynamically stable alert and oriented throughout her stay here. This text was generated using [employer] dictation system, please disregard any oddities of phrase or misspellings. Medical Records Medical records reviewed: Yes I reviewed the patient's medical records. Lab Data Lab results reviewed: Yes I reviewed the patient's lab results. Labs: Laboratory Tests Range/Units 08/25/21 08/25/21 08/25/21 11:16 11:16 11:16 WBC (4.4-10.8) 10^3/uL RBC (3.93-5.22) 10^6/uL Hgb (11.2-15.7) g/dL Hct (36.0-46.0) % MCV (80-95) fL MCH (27.0-33.0) pg MCHC (32.0-36.0) % RDW (11.7-14.6) % Plt Count (130-400) 10^3/uL MPV (8.0-11.0) fL Immature Gran % Neutrophils % Lymphocytes % Monocytes % Eosinophils % Basophils % Nucleated RBC % (0.0-0.3) % Absolute Neutrophils (1.2-6.7) 10^3/uL Absolute Lymphocytes (1.2-3.4) 10^3/uL Absolute Monocytes (0.1-0.8) 10^3/uL Absolute Eosinophils (0.0-0.7) 10^3/uL Absolute Basophils (0.0-0.2) 10^3/uL ESR (0-30) mm/hr 70 H Sodium (136-145) mmol/L 136 Potassium (3.5-5.1) mmol/L 4.3 Chloride (98-107) mmol/L 100 Carbon Dioxide (21.0-32.0) mmol/L 30.1 Anion Gap (3-11) mmol/L 5.9 BUN (7-18) mg/dL 18 Creatinine (0.55-1.02) mg/dL 0.8 Estimated GFR/1.73 m2 (mL/min/1.73m2) >= 60.00 Glucose (74-106) mg/dL 110 H Calcium (8.5-10.1) mg/dL 9.0 Total Bilirubin (0.2-1.0) mg/dL 0.3 AST (15-37) U/L 27 ALT (14-59) U/L 93 H Alkaline Phosphatase (46-116) U/L 64 C-Reactive Protein (0.0-0.3) mg/dL 4.46 H Total Protein (6.4-8.2) g/dL 7.1 Albumin (3.4-5.0) g/dL 2.9 L Procalcitonin ng/mL < 0.1 Urine Color (Yellow) Urine Clarity (Clear) Urine pH (5-8) Ur Specific [place] (1.005-1.025) Urine Protein (Negative) mg/dL Urine Ketones (Negative) mg/dL Urine Blood (Negative) Urine Nitrite (Negative) Urine Bilirubin (Negative) Urine Urobilinogen (Up TO 0.2) EU/dL Ur Leukocyte Esterase (Negative) Urine Glucose (Negative) mg/dL Range/Units 08/25/21 08/25/21 11:16 12:34 WBC (4.4-10.8) 10^3/uL 15.67 H RBC (3.93-5.22) 10^6/uL 4.06 Hgb (11.2-15.7) g/dL 12.7 Hct (36.0-46.0) % 38.0 MCV (80-95) fL 94 MCH (27.0-33.0) pg 31.3 MCHC (32.0-36.0) % 33.4 RDW (11.7-14.6) % 13.2 Plt Count (130-400) 10^3/uL 473 H MPV (8.0-11.0) fL 8.3 Immature Gran % 1.1 Neutrophils % 81.9 Lymphocytes % 8.9 Monocytes % 7.5 Eosinophils % 0.4 Basophils % 0.2 Nucleated RBC % (0.0-0.3) % 0.0 Absolute Neutrophils (1.2-6.7) 10^3/uL 12.83 H Absolute Lymphocytes (1.2-3.4) 10^3/uL 1.39 Absolute Monocytes (0.1-0.8) 10^3/uL 1.18 H Absolute Eosinophils (0.0-0.7) 10^3/uL 0.06 Absolute Basophils (0.0-0.2) 10^3/uL 0.03 ESR (0-30) mm/hr Sodium (136-145) mmol/L Potassium (3.5-5.1) mmol/L Chloride (98-107) mmol/L Carbon Dioxide (21.0-32.0) mmol/L Anion Gap (3-11) mmol/L BUN (7-18) mg/dL Creatinine (0.55-1.02) mg/dL Estimated GFR/1.73 m2 (mL/min/1.73m2) Glucose (74-106) mg/dL Calcium (8.5-10.1) mg/dL Total Bilirubin (0.2-1.0) mg/dL AST (15-37) U/L ALT (14-59) U/L Alkaline Phosphatase (46-116) U/L C-Reactive Protein (0.0-0.3) mg/dL Total Protein (6.4-8.2) g/dL Albumin (3.4-5.0) g/dL Procalcitonin ng/mL Urine Color (Yellow) Yellow Urine Clarity (Clear) Clear Urine pH (5-8) 6.5 Ur Specific [place] (1.005-1.025) 1.015 Urine Protein (Negative) mg/dL Negative Urine Ketones (Negative) mg/dL Negative Urine Blood (Negative) Negative Urine Nitrite (Negative) Negative Urine Bilirubin (Negative) Negative Urine Urobilinogen (Up TO 0.2) EU/dL 0.2 Ur Leukocyte Esterase (Negative) Negative Urine Glucose (Negative) mg/dL Negative HPI General Mode of arrival: ambulatory . Date/Time Provider Initiated Documentation: 08/25/21 10:51 . Limitations to Documentation: no limitations . Information obtained by: patient, family, RN notes reviewed and old records reviewed . HPI Narrative: 51-year-old female presents to the ER with chief complaint of joint pain, myalgias, joint swelling which has been ongoing for the last 1 and half weeks. Initially began with right ankle swelling. She has been followed by orthopedics and had arthrocentesis and placed on a steroid taper. Reports that the myalgias have worsened and are worse in the AM. She is still taking prednisone 20 mg daily. She is also taking tramadol at home which helps somewhat. Last took tr amadol last night. She is afebrile upon arrival alert and oriented x4. Appears nonseptic. She does have a past medical history of hypertension, atrial fibrillation, diverticulosis, kidney stone. Surgical history includes breast biopsy, right total knee replacement, hysterectomy arthroscopic surgery left knee, parathyroid adenoma parathyroidectomy. Related Data Home Medications Medication Instructions Recorded Confirmed multivitamin 1 cap PO DAILY 08/16/18 08/25/21 omeprazole 20 mg capsule,delayed 20 mg PO DAILY #90 caps 10/21/20 08/25/21 release atenolol 50 mg tablet 50 mg PO DAILY #90 tabs 02/28/21 08/25/21 lisinopril 10 mg tablet 10 mg PO DAILY #90 tabs 02/28/21 08/25/21 finasteride 1 mg tablet (Propecia) 2 mg PO DAILY #180 tabs 05/19/21 08/25/21 prednisone 10 mg tablet 10 mg PO DAILY #30 tabs 08/17/21 08/25/21 tramadol 50 mg tablet 50 mg PO BID PRN pain #20 tabs 08/21/21 08/25/21 Previous Rx's Medication Instructions Recorded omeprazole 20 mg capsule,delayed 20 mg PO DAILY #90 caps 10/21/20 release atenolol 50 mg tablet 50 mg PO DAILY #90 tabs 02/28/21 lisinopril 10 mg tablet 10 mg PO DAILY #90 tabs 02/28/21 finasteride 1 mg tablet (Propecia) 2 mg PO DAILY #180 tabs 05/19/21 prednisone 10 mg tablet 10 mg PO DAILY #30 tabs 08/17/21 tramadol 50 mg tablet 50 mg PO BID PRN pain #20 tabs 08/21/21 Allergies Allergy/AdvReac Type Severity Reaction Status Date / Time No Known Allergies Allergy Unverified 08/25/21 10:20 General Stated Complaint: Orthopedic [place]: 3 Review of Systems All systems reviewed & are unremarkable except as noted in HPI and below Musculoskeletal Musculoskeletal: Reports as per HPI, Reports myalgias, Reports arthralgias, Reports joint swelling and Reports stiffness PFSH All Active Problems (Updated 08/25/21 @ 13:31 by Genevieve Mckeon) Arthralgia (Acute) Polyarthritis of multiple sites (Acute) Effusion, left knee (Acute) Right ankle effusion (Acute) 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) improved after surgery, now worsening symptoms Paroxysmal atrial fibrillation (Chronic 2013) 1 symptomatic around 2013 Managed on atenolol Essential hypertension (Chronic 08/27/17) Medical History Diverticulosis Left ureteral stone Right distal ureteral calculus Vertigo Occasional symptoms 2 episodes that sought treatment for, started when had hyperparathyroidism Surgical History History of breast biopsy Benign biopsies 3 since the age of 14 yo History of total right knee replacement (TKR) Parathyroid adenoma S/P resection 2002 S/P colonoscopy (~02/01/18) screening colonoscopy with 10 year recall. Status post arthroscopic surgery of left knee partial medial mensicectomy 2000 Status post hysterectomy for endometriosis in uterus Status post right rotator cuff repair Distal clavicle excision 2012 Trigger finger, right middle finger S/P Release: 01/14/2021 Family History Mother Hypertension Osteoarthritis Father Unknown family medical history Alcohol abuse Sister Osteoarthritis S/p TKA in late 40s Son No problems noted. Daughter No problems noted. 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 [employer] Pets and animals: No Sexually active: Yes Do you think of yourself as: straight/heterosexual Current gender identity: female What is your relationship status?: How often do you talk on the phone with friends or family?: once per week How often do you get together with friends or relatives?: three or more times per week How often do you attend protestant or judaism services?: decline to answer Do you belong to any clubs or organized social groups?: no Panel score (0-1 are the most socially isolated patients): 2 What type of physical activity do you participate in: walking Duration: 45-60 minutes/day Frequency: 1-2 times per week Manisha/Pentecostal: None Special manisha needs: No Seatbelt use: always Drive intox or ride w/intox transit driver: No Do you feel safe at home: Yes Do you feel safe in your relationship?: Yes Victim of physical abuse: No Victim of emotional abuse: Yes Victim of sexual abuse: No Would you like helpful sources: No Exam Narrative Exam Narrative: Constitutional: Alert and oriented x3. Appears stated age. Normal body habitus. Head: Normocephalic, no trauma. Eyes: Pupils PERRL, Red reflex noted, EOM's intact. Eyelids symmetrical without lesions, discharge, or swelling. Chest: RRR, Normal S1, S2, distal pulses intact. Resp: Lungs clear to auscultation bilaterally, no wheezes, rales, or rhonchi. Abdomen: Soft, non-distended, Normoactive bowel sounds all 4 quads. Musculoskeletal: Patient does have some bilateral swelling noted to the right ankle, no obvious deformity or ecchymosis, mild swelling questionably to the bilateral knees. Does have some tenderness with extension and flexion. No masses palpated to the left knee, negative Homans' sign noted to left lower extremity. Distal CMS intact. Skin: No suspicious rashes or lesions. Capillary refill less than 2 sec. Neurologic: Cranial nerves II-XII intact. Alert and oriented x 3. Motor: No deficits noted. Sensory: Intact bilaterally all 4 extremities. Hematologic/Lymphatic: No ecchymosis, no lymphadenopathy. Course Vital Signs Vital signs: Vital Signs Temperature 36.6 C 08/25/21 10:16 Pulse 74 08/25/21 10:16 Respiratory Rate 17 08/25/21 10:16 Blood Pressure 146/99 H 08/25/21 10:16 Pulse Oximetry 96 08/25/21 10:16 Temperature 36.6 C 08/25/21 10:16 Temperature Source Temporal Artery Scan 08/25/21 10:16 Pulse 74 08/25/21 10:16 Respiratory Rate 17 08/25/21 10:16 Respiratory Effort Non-Labored 08/25/21 10:19 Blood Pressure 146/99 H 08/25/21 10:16 Blood Pressure Position Sitting 08/25/21 10:16 Pulse Oximetry 96 08/25/21 10:16 Oxygen Delivery Method Room Air 08/25/21 10:16 Oxygen Flow Rate 0 08/25/21 10:16 Pain Level 10 08/25/21 10:31 PAWSS Have you Been Recently Intoxicated or Drunk Within the Last 30 days?: No Have you Ever Experienced Previous Episodes of Alcohol Withdrawal?: No Have you ever Experienced Withdrawal Seizures?: No Have you ever Experienced Delirium Tremens(DT)s?: No Have you ever undergone Alcohol Rehabilitation Treatment (i.e, inpt ot outpatient treatment programs)?: No Have you ever Experienced Blackouts?: No Have you ever Combined Alcohol with other Downers within the last 90 days?: No Have you ever Combined Alcohol with any other Substance of Abuse during the last 90 days?: No Positive Blood Alcohol level on Presentation? [PCS.BAL]: No Evidence of Increased Autonomic Activity (i.e. HR>120, tremor, sweating, agitation, nausea)?: No Result: 0
[2021-08-25 11:24] LABS: Abs Immature Grans 0.17 10^3/uL (0.0-0.06); Absolute Basophil Count 0.03 10^3/uL (0.0-0.2); Absolute Eosinophil Count 0.06 10^3/uL (0.0-0.7); Absolute Lymphocyte Count 1.39 10^3/uL (1.2-3.4); Absolute Monocyte Count 1.18 10^3/uL (0.1-0.8); Basophils % 0.2; Eosinophils % 0.4; HGB 12.7 g/dL (11.2-15.7); Immature Grans % 1.1; Lymphocytes % 8.9; MCH 31.3 pg (27.0-33.0); MCHC 33.4 % (32.0-36.0); MCV 94 fL (80-95); MPV 8.3 fL (8.0-11.0); Monocytes % 7.5; Neutrophils % 81.9; Platelet Count 473 10^3/uL (130-400); RBC 4.06 10^6/uL (3.93-5.22); RDW 13.2 % (11.7-14.6); RDW-SD 45.1 fL; WBC 15.67 10^3/uL (4.4-10.8)
[2021-08-25 11:25] LABS: Absolute Neutrophil Count 12.83 10^3/uL (1.2-6.7)
[2021-08-25 11:27] LABS: ESR 70 mm/hr (0-30)
[2021-08-25] MEDS: Normal Saline 1,000 ML 1000 ML IV (11:43)
[2021-08-25 11:46] LABS: ALT 93 U/L (14-59); AST 27 U/L (15-37); Albumin 2.9 g/dL (3.4-5.0); Alkaline Phosphatase 64 U/L (46-116); Anion Gap 5.9 mmol/L (3-11); BUN 18 mg/dL (7-18); Bilirubin, Total 0.3 mg/dL (0.2-1.0); C-Reactive Protein 4.46 mg/dL (0.0-0.3); CO2 30.1 mmol/L (21.0-32.0); CREATININE 0.8 mg/dL (0.55-1.02); Chloride 100 mmol/L (98-107); Glucose 110 mg/dL (74-106); Potassium 4.3 mmol/L (3.5-5.1); Sodium 136 mmol/L (136-145); Total Protein 7.1 g/dL (6.4-8.2)
[2021-08-25 12:26] LABS: Procalcitonin < 0.1 ng/mL
[2021-08-25] MEDS: cefTRIAXone 1 GM/50 ML BAG IVPB (12:42)
[2021-08-25 12:44] LABS: Bilirubin Negative (Negative); Blood Negative (Negative); Clarity Clear (Clear); Glucose Negative (Negative); Ketones Negative (Negative); Leukocyte Esterase Negative (Negative); Nitrite Negative (Negative); Specific Gravity 1.015 (1.005-1.025); Urobilinogen 0.2 EU/dL (Up TO 0.2); pH 6.5 (5-8)
== END 2021-08-25 14:00 | disposition home or self-care (01) ==
PROVIDERS: Emergency Provider Registered Nurse Emergency; PCP Family Medicine
DX: M25.471 Effusion, right ankle (principal); M25.571 Pain in right ankle and joints of right foot; R79.89 Other specified abnormal findings of blood chemistry; I10 Essential (primary) hypertension
CPT/HCPCS: 36415; 73562; 80053; 84145; 85652; 96361; 96365; 99285; 81003; 85025; 86140; 93971; 99284; J0696

== ENCOUNTER 2021-12-04 04:38 | Outpatient (CLI) | payer OTHER, SELFPAY ==
[2021-12-04 13:33] LABS: Abs Immature Grans 0.03 10^3/uL (0.0-0.06); Absolute Basophil Count 0.03 10^3/uL (0.0-0.2); Absolute Eosinophil Count 0.09 10^3/uL (0.0-0.7); Absolute Lymphocyte Count 2.16 10^3/uL (1.2-3.4); Absolute Monocyte Count 0.55 10^3/uL (0.1-0.8); Absolute Neutrophil Count 3.16 10^3/uL (1.2-6.7); Basophils % 0.5; Eosinophils % 1.5; HCT 39.1 % (36.0-46.0); HGB 12.7 g/dL (11.2-15.7); Immature Grans % 0.5; Lymphocytes % 35.9; MCH 30.7 pg (27.0-33.0); MCHC 32.5 % (32.0-36.0); MCV 94 fL (80-95); MPV 8.9 fL (8.0-11.0); Monocytes % 9.1; Neutrophils % 52.5; Platelet Count 278 10^3/uL (130-400); RBC 4.14 10^6/uL (3.93-5.22); RDW 12.6 % (11.7-14.6); RDW-SD 43.7 fL; WBC 6.02 10^3/uL (4.4-10.8)
[2021-12-04 14:50] LABS: ALT 29 U/L (14-59); AST 21 U/L (15-37); Alkaline Phosphatase 52 U/L (46-116); Anion Gap 7.2 mmol/L (3-11); BUN 18 mg/dL (7-18); Bilirubin, Total 0.4 mg/dL (0.2-1.0); CO2 26.8 mmol/L (21.0-32.0); CREATININE 0.7 mg/dL (0.55-1.02); Calcium 8.9 mg/dL (8.5-10.1); Chloride 104 mmol/L (98-107); Estimated GFR 103.35 (mL/min/1.73m2); Glucose 80 mg/dL (74-106); Potassium 4.1 mmol/L (3.5-5.1); Sodium 138 mmol/L (136-145)
== END 2021-12-04 04:39 | disposition home or self-care (01) ==
PROVIDERS: PCP Family Medicine; Visit Provider Student in an Organized Health Care Education/Training Program
DX: Z79.899 Other long term (current) drug therapy (principal)
CPT/HCPCS: 36415; 80053; 85025

== ENCOUNTER 2022-01-22 14:51 | Outpatient (CLI) | payer OTHER, SELFPAY ==
[2022-01-22 13:58] LABS: ESR < 1 mm/hr (0-30)
[2022-01-22 14:22] LABS: C-Reactive Protein 0.17 mg/dL (0.0-0.3)
== END 2022-01-22 14:52 | disposition home or self-care (01) ==
LOC: LBO 14:52
PROVIDERS: PCP Family Medicine; Visit Provider Student in an Organized Health Care Education/Training Program
DX: M11.20 Other chondrocalcinosis, unspecified site (principal)
CPT/HCPCS: 36415; 85652; 86140

== ENCOUNTER 2022-02-16 13:20 | Day surgery (SDC) | payer OTHER, SELFPAY ==
[2022-02-16] MEDS: Sulfameth/Trimeth DS TAB 1 TAB PO (13:30)
[2022-02-16 13:31] VITALS: BP 140/99; PULSE 72; RESP 16; TEMP 36.4; O2SAT 98
--- NOTE | 2022-02-16 13:34 | W.ANESPRE ---
General Info Date of Service Date Performed: 02/16/22 Height: 5 ft 2 in Weight: 77.111 kg Body Mass Index (BMI): 31.1 Surgical Procedure: Operation Date: 02/16/22 14:40 Proposed Procedure Side Surgeon p Cystoscopy w/Transuretheral Injection of Coaptite Carloz Lanza MD Meds Allergies and Home Medications Allergies Allergy/AdvReac Type Severity Reaction Status Date / Time No Known Allergies Allergy Unverified 02/16/22 13:40 Home Medication Medication Instructions Recorded multivitamin 1 cap PO DAILY 08/16/18 atenolol 50 mg tablet 50 mg PO DAILY #90 tabs 02/28/21 lisinopril 10 mg tablet 10 mg PO DAILY #90 tabs 02/28/21 finasteride 1 mg tablet (Propecia) 2 mg PO DAILY #180 tabs 05/19/21 omeprazole 20 mg capsule,delayed 20 mg PO DAILY #90 caps 10/29/21 release colchicine 0.6 mg tablet 0.6 mg PO BID 02/05/22 hydroxychloroquine 300 mg tablet 300 mg PO DAILY 02/05/22 Current Visit Medications: Current Medications Generic Name Dose Route Start Last Admin Trade Name Freq PRN Reason Stop Dose Admin Ringer's Solution 1,000 mls @ 80 mls/hr 02/16/22 06:00 IV 03/15/22 23:59 INFUSION MAT IV Miscellaneous Supplies 1 each 02/16/22 06:00 Iv Access IV 03/15/22 23:59 DIRECTED MAT Sodium Chloride 0 ml 02/16/22 06:00 Normal Saline Flush 10 Ml Syr IV 03/15/22 23:59 PRN PRN Sodium Chloride 0 ml 02/16/22 06:00 Normal Saline 10 Ml Vial IJ 03/15/22 23:59 DIRECTED PRN Sterile Water 0 ml 02/16/22 06:00 Water,Injection,Sterile 10 Ml Vial IJ 03/15/22 23:59 DIRECTED PRN Trimethoprim/Sulfamethoxazole 1 tab 02/16/22 06:00 02/16/22 13:30 Sulfameth/Trimeth Ds Tab PO 02/16/22 18:00 1 tab PREOP MAT Administration PFSH Active Problems Active Problems: Problem Status Onset Code Essential hypertension 08/27/17 I10 Paroxysmal atrial fibrillation 2013 I48.0 Urinary incontinence due to urethral sphincter incompetence N36.42, R32 Right ankle effusion M25.471 Effusion, left knee M25.462 Polyarthritis of multiple sites M13.0 Medical History Medical History Diverticulosis Hx of pseudogout dx 09/10 Left ureteral stone Right distal ureteral calculus Vertigo Occasional symptoms 2 episodes that sought treatment for, started when had hyperparathyroidism Surgical History Surgical History History of breast biopsy Benign biopsies 3 since the age of 14 yo History of total right knee replacement (TKR) Parathyroid adenoma S/P resection 2002 S/P colonoscopy (~02/01/18) screening colonoscopy with 10 year recall. Status post arthroscopic surgery of left knee partial medial mensicectomy 2000 Status post hysterectomy for endometriosis in uterus Status post right rotator cuff repair Distal clavicle excision 2012 Trigger finger, right middle finger S/P Release: 01/14/2021 Tobacco Smoking/Tobacco Use Status: Never Second hand exposure: No Alcohol Alcohol Intake: current Alcohol intake frequency: a few times a week Alcohol type: beer, wine and hard liquor Substance Use Substance use: Never Substance use type: does not use Vital Signs and Lab Results Lab Results Blood Type / Crossmatch: No Data to Display Complete Blood Count: No Data to Display Complete Metabolic Panel: C-Reactive Protein 0.17 mg/dL (0.0-0.3) 01/22/22 13:47 Liver Function Panel: No Data to Display Coagulation Panel: No Data to Display Cardiac Panel: No Data to Display Arterial Blood Gas: No Data to Display Venous Blood Gas: No Data to Display Pancreas Panel: No Data to Display Thyroid Panel: No Data to Display Infectious Disease: No Data to Display Blood Cultures: No Data to Display Toxicology Panel: No Data to Display Panel: No Data to Display Imaging and Studies Imaging and Studies Study information below may be from another EMR and interpreted by another provider. Please see original notes in EMR for more complete details. EKG Summary: 09/02/20: Conclusion Sinus bradycardia...rate< 60 Left ventricular hypertrophy...multiple voltage criteria Stress Test Summary: 09/03/20: MPI Conclusion The ejection fraction was 61% with stress. There were no wall motion abnormalities. There is no evidence of ischemia on the imaging portion exam. This represents a normal SPECT stress test. Results of this test were relayed to the inpatient ordering team. Echocardiogram Summary: 09/21/13: FINDINGS: LEFT VENTRICLE/LVEF: Normal size and systolic function. Estimated LVEF 65%. RIGHT VENTRICLE: Normal size and function. AORTIC VALVE: Trileaflet, opens well without regurgitation. MITRAL VALVE: Anatomically normal with trace regurgitation. TRICUSPID VALVE: Mild regurgitation. RSV/PA/RIGHT ATRIAL PRESSURE: RVS pressure 27 mm. of mercury. PULMONIC VALVE: Normal. ATRIA: Normal biatrial size. DIASTOLIC INDICES: Normal. GREAT VESSELS: Normal. PERICARDIUM: No effusion. Anesthesia Assessment and Plan Anesthesia History Personal History: No History of Anesthesia Complications Family History: No Family History of Anesthesia Complications Exercise Tolerance Exercise Tolerance: Metabolic Equivalents>4 Pertinent Negatives Pertinent Negatives: No Symptoms of GERD, No Major Cardiovascular Symptoms or Complaints, No Major Pulmonary Symptoms or Complaints and No History of CVA/TIA Cardiac & Pulmonary Exam Cardiac Exam: Normal S1/S2 Heart Sounds Pulmonary Exam: Clear Bilateral Breath Sounds Implantable Cardiac Device Does patient have a Pacemaker or an ICD?: No Airway Exam Known Difficult Airway: No Mallampati Class: 1 Mouth Opening: Normal (> 3cm) Thyromental Distance: Greater than 3 cm Neck Range of Motion: Full ROM Neck Circumference: Normal Teeth Condition: Normal Dentition ASA Classification ASA Score: ASA 2 Emergency Case?: No NPO Status NPO Status: NPO Clears >2 hours, Solids >8 hours Status Status: Not Relevant due to Medical History Anesthesia Plan Resuscitation Status: Full Code Anesthesia Technique: General Anesthesia Airway Planned: Natural Airway Monitors Used: Standard Monitors
--- NOTE | 2022-02-16 13:48 | W.PM.HP.N ---
Date of service: 02/16/22 Time of Service: 13:48 Assessment and Plan Assessment and plan (1) Urinary incontinence due to urethral sphincter incompetence: Status: Chronic Assessment and plan: For repeat injection of bulking agent at bladder neck History of Present Illness History of Present Illness Chief Complaint: Urinary Incontinence due to ISD Narrative: Dinora is a 52-year-old female with history of urinary incontinence with activity.? She did undergo injections of coaptite into the bladder neck in 2020.? She notes that the procedure allowed for improvement of her incontinence for several months.? She notes no UTI symptoms.? She feels that she can empty out her bladder well.? She notes that her main concern is walking and having urinary leakage. She had no adverse reaction to her prior Coaptite injection. Review of Systems Narrative: No fevers or chills No vision change or dysphasia No diabetes or thyroid No shortness of breath, cough or hemoptysis Hx Atrial fibrillation. No chest pain or palpitations No nausea, vomiting, hepatitis, ulcers, jaundice No seizures, strokes or peripheral neuropathy No bleeding disorders or anemia No gout PFSH All Active Problems Essential hypertension (Chronic 08/27/17) Paroxysmal atrial fibrillation (Chronic 2013) 1 symptomatic around 2013 Managed on atenolol 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) improved after surgery, now worsening symptoms Right ankle effusion (Acute) Effusion, left knee (Acute) Polyarthritis of multiple sites (Acute) Medical History Diverticulosis Hx of pseudogout dx 09/10 Left ureteral stone Right distal ureteral calculus Vertigo Occasional symptoms 2 episodes that sought treatment for, started when had hyperparathyroidism Surgical History History of breast biopsy Benign biopsies 3 since the age of 14 yo History of total right knee replacement (TKR) Parathyroid adenoma S/P resection 2002 S/P colonoscopy (~02/01/18) screening colonoscopy with 10 year recall. Status post arthroscopic surgery of left knee partial medial mensicectomy 2000 Status post hysterectomy for endometriosis in uterus Status post right rotator cuff repair Distal clavicle excision 2012 Trigger finger, right middle finger S/P Release: 01/14/2021 Family History Mother Hypertension Osteoarthritis Father Unknown family medical history Alcohol abuse Sister Osteoarthritis S/p TKA in late 40s Son No problems noted. Daughter No problems noted. 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 [employer] Pets and animals: No Sexually active: Yes Do you think of yourself as: straight/heterosexual Current gender identity: female What is your relationship status?: How often do you talk on the phone with friends or family?: once per week How often do you get together with friends or relatives?: three or more times per week How often do you attend sikhism or taoism services?: decline to answer Do you belong to any clubs or organized social groups?: no Panel score (0-1 are the most socially isolated patients): 2 What type of physical activity do you participate in: walking Duration: 45-60 minutes/day Frequency: 1-2 times per week Manisha/Latter Day: None Special manisha needs: No Seatbelt use: always Drive intox or ride w/intox ups driver: No Do you feel safe at home: Yes Do you feel safe in your relationship?: Yes Victim of physical abuse: No Victim of emotional abuse: Yes Victim of sexual abuse: No Would you like helpful sources: No Meds Allergies and Home Medications Allergies Allergy/AdvReac Type Severity Reaction Status Date / Time No Known Allergies Allergy Unverified 02/16/22 13:40 Home Medications Medication Instructions Recorded Confirmed Type multivitamin 1 cap PO DAILY 08/16/18 02/11/22 History atenolol 50 mg tablet 50 mg PO DAILY #90 tabs 02/28/21 02/11/22 Rx lisinopril 10 mg tablet 10 mg PO DAILY #90 tabs 02/28/21 02/11/22 Rx finasteride 1 mg tablet (Propecia) 2 mg PO DAILY #180 tabs 05/19/21 02/11/22 Rx omeprazole 20 mg capsule,delayed 20 mg PO DAILY #90 caps 10/29/21 02/11/22 Rx release colchicine 0.6 mg tablet 0.6 mg PO BID 02/05/22 02/11/22 History hydroxychloroquine 300 mg tablet 300 mg PO DAILY 02/05/22 02/11/22 History Exam Const General: cooperative and comfortable Neck Neck: supple Resp Effort & Inspection: normal respiratory effort Auscultation: clear to auscultation bilaterally Cardio Rate: regular rate Rhythm: regular rhythm Neuro General: patient alert, patient awake and patient oriented x3 Results Last Vital Signs Temp 36.4 C L 02/16/22 13:31 Pulse 72 02/16/22 13:31 Resp 16 02/16/22 13:31 BP 140/99 H 02/16/22 13:31 Pulse Ox 98 02/16/22 13:31
[2022-02-16] MEDS: Lactated Ringers 1,000 ML 80 ML IV (14:08)
[2022-02-16] MEDS: Lidocaine 2% Jelly 6 ML SYR (14:25)
[2022-02-16] MEDS: Lidocaine 1% Pres-Free W/EPI 1/200,000 10 ML VIAL (14:30)
[2022-02-16 14:31] VITALS: BMI 31.1
--- NOTE | 2022-02-16 14:41 | W.PM.DSUDISC ---
Date of service: 02/16/22 Time of Service: 14:44 Discharge Plan Disposition Patient Disposition: HOME Condition: Good Discharge Details Reason For Visit: urinary incontinence Attending Provider: Carloz Lanza Primary Care Provider: Mirna Staley Home Meds and New Rx's Prescriptions: No Action atenolol 50 mg tablet 50 mg PO DAILY Qty: 90 4RF Rx Instructions: Take 1 tab PO daily for atrial fibrillation lisinopril 10 mg tablet 10 mg PO DAILY Qty: 90 3RF colchicine 0.6 mg tablet 0.6 mg PO BID hydroxychloroquine 300 mg tablet 300 mg PO DAILY finasteride [Propecia] 1 mg tablet 2 mg PO DAILY Qty: 180 5RF omeprazole 20 mg capsule,delayed release(DR/EC) 20 mg PO DAILY Qty: 90 3RF multivitamin Capsule 1 cap PO DAILY Discharge Instructions Additional Instructions: call in 1 week to give progress report about urinary symptoms apply antibiotic ointment to perineal skin lesion site BID (until suture dissolves) Activity:: Activity as Tolerated Shower/Bathe:: 24 hours Equipment/Supplies:: No Equipment Needed Diet:: As Tolerated DS: Diagnosis Discharge Diagnosis (1) Urinary incontinence due to urethral sphincter incompetence: Status: Chronic
[2022-02-16 14:46] VITALS: BP 107/74; PULSE 80; RESP 18; TEMP 36.1; O2SAT 98
--- NOTE | 2022-02-16 14:56 | W.PM.OP ---
Date of service: 02/16/22 Time of Service: 14:56 Operative Note Operative Note DATE OF PROCEDURE: 02/16/22 PRE-OP DIAGNOSIS: Urinary incontinence due to Intrinsic sphincter deficiency POST-OP DIAGNOSIS: same Perineal mass PROCEDURE: Cystoscopy with transurethral injection of Coaptite at bladder neck Excision of perineal mass SURGEON: Carloz Lanza ANESTHESIA TYPE: Local By Surgeon and General:No Airway Refer to Anesthesia Record ESTIMATED BLOOD LOSS: 5 PATHOLOGY: none sent COMPLICATIONS: None Patient was transported to: same day Patient's condition: stable Implants: 1.25 vial Coaptite at bladder neck Indications: This is a 52-year-old woman who has a history of urinary incontinence. Her leakage occurs with coughing but also with minimal activity such as walking. She has had benefit from a transurethral injection of coapt tight at the bladder neck previously. She returns for repeat injection. The patient is also noted a flesh colored mass in the perineum. She is wondering if the mass could be excised under the same anesthetic Findings: Epithelial covered mass in perineal/perianal region Procedure Description: The patient was given a dose of oral antibiotics and brought to the operating room on 02/16/2022. After successful induction of general anesthesia, she was placed in the dorsal lithotomy position. Her genitalia and perineum were prepped and draped sterilely. 2% Xylocaine jelly was instilled into the urethra to act as a local anesthetic. A 20 Luxembourger urethrotome sheath was then passed through the urethra into the bladder. The bladder neck was inspected using a 30 degree lens. There was evidence of some retained coapt tight material focally, but overall, the bladder neck appeared open at rest. Using a transurethral injection system, we injected 1.25 vials of coapt tight submucosally. This resulted in visual coaptation of the bladder neck mucosa when viewed cystoscopically. The bladder was then drained with a 16 Luxembourger catheter. The catheter was removed. We then turned our attention to the perineal mass. There was a very narrow attachment to the perineal skin. The underlying skin was infiltrated with 1% lidocaine with epinephrine. We then excised the mass flush against the skin and closed to the area with a [id number] 4-0 chromic suture. The patient tolerated this procedure with no complications.
[2022-02-16] MEDS: Phenazopyridine 200 MG TAB PO (14:58)
--- NOTE | 2022-02-16 15:00 | W.ANESPOSTOP ---
Postoperative Evaluation Date, Time and Location Date Performed: 02/16/22 Time Performed: 15:00 Patient Location: Day Surgery Unit Vital Signs Most Recent Imported Vital Signs: Most Recent Vital Signs Temp Pulse Resp BP Pulse Ox 36.1 C L 80 18 107/74 98 02/16/22 14:46 02/16/22 14:46 02/16/22 14:46 02/16/22 14:46 02/16/22 14:46 Pain Score Most Recent Pain Score: Most Recent Pain Score Pain Level 0 02/16/22 13:31 Assessment Mental Status: Awake (Alert & Oriented to Patient Baseline) Airway and Respiratory Function: Patent airway with normal (patient baseline) respiratory exam Cardiovascular Function: Hemodynamically Stable Hydration Status: Adequately Hydrated Nausea & Vomiting: No Nausea or Vomiting Pain: Pt. Denies Any Pain Peripheral Nerve Block: Patient did not receive a nerve block
[2022-02-16 15:16] VITALS: BP 117/76; PULSE 76; RESP 18; TEMP 36.5; O2SAT 100
== END 2022-02-16 15:45 | disposition home or self-care (01) ==
PROVIDERS: PCP Family Medicine; Visit Provider Urology
PROC: (CPT 51715; principal; 2022-02-16 14:30)
DX: N36.42 Intrinsic sphincter deficiency (ISD) (principal); N39.498 Other specified urinary incontinence; I48.0 Paroxysmal atrial fibrillation; M15.9 Polyosteoarthritis, unspecified; I10 Essential (primary) hypertension
CPT/HCPCS: 51715; J1100; J1885; J2405; L8606

== ENCOUNTER 2022-04-02 04:05 | Outpatient (CLI) | payer OTHER, SELFPAY ==
[2022-04-02 10:57] LABS: BUN 19 mg/dL (7-18); CREATININE 0.7 mg/dL (0.55-1.02); Chloride 101 mmol/L (98-107); Estimated GFR 102.71 (mL/min/1.73m2); Glucose 81 mg/dL (74-106); Potassium 4.9 mmol/L (3.5-5.1); Sodium 137 mmol/L (136-145)
[2022-04-03 09:21] LABS: Lab Add On Test DONE
[2022-04-03 09:36] LABS: Calculated LDL 95 mg/dL (<100); Cholesterol 206 mg/dL (<200); HDL Cholesterol 103 mg/dL (40-60); Triglyceride 44 mg/dL (<150)
== END 2022-04-02 04:06 | disposition home or self-care (01) ==
PROVIDERS: PCP Family Medicine; Visit Provider Family Medicine
DX: I10 Essential (primary) hypertension (principal)
CPT/HCPCS: 36415; 80048; 80061

== ENCOUNTER 2022-04-20 01:51 | Outpatient (CLI) | payer OTHER, SELFPAY ==
--- NOTE | 2022-04-20 08:00 | DI.US_ITS ---
Exam(s) US BREAST LT COMPLETE US BREAST RT COMPLETE MG MAMMO SCREENING EXAM: MG MAMMO SCREENING and bilateral complete breast ultrasound CLINICAL HISTORY: screening,Z12.39. TECHNIQUE: Craniocaudal and mediolateral oblique Full Field Digital Mammography views with Computer Aided Diagnosis followed by Tomosynthesis and bilateral breast ultrasound. COMPARISON: Comparison is made with prior examinations. FINDINGS: Mammography/Tomosynthesis: Masses/Architectural Distortion: None seen. Microcalcifictions: No suspicious pleomorphic-type are seen. Skin Thickening/Nipple Retraction: None. Complete bilateral breast US: The previously described nodules are again noted and unchanged. No new masses are appreciated. IMPRESSION: 1. No definite evidence of malignancy is noted. 2. A six-month follow-up bilateral ultrasound is recommended. This is for re-evaluation of the sonog raphically identified nodules. 3. The patient should return for yearly screening mammography in 1 year. 4. The findings were discussed with the patient on the date of the examination. BI-RADS Category 3 - 6 month - Probably Benign Finding: Recommend follow-up imaging in 6 months Breast Density - Category C - Heterogeneously dense Breast density Category C or D implies that the patient has dense breast tissue. Dense breast tissue can make it harder to find cancer on a mammogram. Dense breast tissue is also associated with an incr eased risk of breast cancer. This information about the result of the mammogram report was provided to the patient to raise their awareness. Use this report when you speak with the patient about their risks for breast cancer, which includes their family history. At that time, you may recommend additional screening tests (Ultrasoun d or MRI) as these tests may add significant information. A negative radiographic report should not delay biopsy if a dominant or clinically suspicious mass is present. Up to ten percent of cancers are not identified on mammography. A negative report may reinforce clinical impression. Adenosis and dense breasts may obscure an underlying neoplasm. False positive reports average 6 to 10%. Patient will receive a letter notifying them of these results.
== END 2022-04-20 02:11 ==
LOC: DI 01:51
PROVIDERS: PCP Family Medicine; Visit Provider Family Medicine
DX: Z12.31 Encounter for screening mammogram for malignant neoplasm of breast (principal); R92.8 Other abnormal and inconclusive findings on diagnostic imaging of breast; N60.11 Diffuse cystic mastopathy of right breast; N60.12 Diffuse cystic mastopathy of left breast
CPT/HCPCS: 76642; 77063; 77067

== ENCOUNTER 2022-11-04 13:34 | Outpatient (CLI) | payer OTHER, SELFPAY ==
[2022-11-04 16:24] LABS: ALT 30 U/L (14-59); AST 22 U/L (15-37); Albumin 4.2 g/dL (3.4-5.0); Alkaline Phosphatase 55 U/L (46-116); BUN 21 mg/dL (7-18); Bilirubin, Total 0.5 mg/dL (0.2-1.0); CREATININE 1.1 mg/dL (0.55-1.02); Calcium 9.7 mg/dL (8.5-10.1); Chloride 104 mmol/L (98-107); Estimated GFR 59.71 (mL/min/1.73m2); Glucose 94 mg/dL (74-106); Potassium 4.8 mmol/L (3.5-5.1); Sodium 140 mmol/L (136-145); Total Protein 7.7 g/dL (6.4-8.2)
== END 2022-11-04 13:35 | disposition home or self-care (01) ==
LOC: LBO 13:36
PROVIDERS: PCP Nurse Practitioner Family; Visit Provider Obstetrics & Gynecology
DX: N95.1 Menopausal and female climacteric states
CPT/HCPCS: 36415; 80053

== ENCOUNTER 2023-02-19 01:47 | Outpatient (CLI) | payer OTHER, SELFPAY ==
[2023-02-19 10:53] LABS: ALT 25 U/L (14-59); AST 17 U/L (15-37); Alkaline Phosphatase 42 U/L (46-116); BUN 13 mg/dL (7-18); Bilirubin, Total 0.4 mg/dL (0.2-1.0); CREATININE 0.9 mg/dL (0.55-1.02); Calcium 8.7 mg/dL (8.5-10.1); Chloride 105 mmol/L (98-107); Glucose 90 mg/dL (74-106); Potassium 4.4 mmol/L (3.5-5.1); Sodium 140 mmol/L (136-145); Total Protein 7.2 g/dL (6.4-8.2)
== END 2023-02-19 01:48 | disposition home or self-care (01) ==
LOC: LBO 01:48
PROVIDERS: Obstetrics & Gynecology; PCP Nurse Practitioner Family; Visit Provider Obstetrics & Gynecology
DX: N95.1 Menopausal and female climacteric states (principal)
CPT/HCPCS: 36415; 80053

== ENCOUNTER 2023-03-04 12:25 | Outpatient (REF) | payer OTHER, SELFPAY | END 2023-03-04 12:26 | disposition home or self-care (01) | LOC: LBN 12:25 | PROVIDERS: PCP Nurse Practitioner Family; Visit Provider Urology | DX: R30.0 Dysuria (principal) | CPT/HCPCS: 87086 ==

== ENCOUNTER 2023-04-23 08:02 | Outpatient (CLI) | payer OTHER, SELFPAY ==
[2023-04-23 07:43] LABS: Abs Immature Grans 0.06 10^3/uL (0.0-0.06); Absolute Basophil Count 0.06 10^3/uL (0.0-0.2); Absolute Eosinophil Count 0.15 10^3/uL (0.0-0.7); Absolute Lymphocyte Count 2.06 10^3/uL (1.2-3.4); Absolute Monocyte Count 0.67 10^3/uL (0.1-0.8); Eosinophils % 2.5; HCT 39.2 % (36.0-46.0); Lymphocytes % 33.8; MCH 30.2 pg (27.0-33.0); MCHC 33.2 % (32.0-36.0); MCV 91 fL (80-95); MPV 8.6 fL (8.0-11.0); Neutrophils % 50.7; Platelet Count 256 10^3/uL (130-400); RDW 13.3 % (11.7-14.6); RDW-SD 44.1 fL
[2023-04-23 08:11] LABS: Hemoglobin A1C 5.3 % (<5.7)
[2023-04-23 08:18] LABS: ALT 21 U/L (14-59); AST 24 U/L (15-37); Albumin 3.7 g/dL (3.4-5.0); Alkaline Phosphatase 55 U/L (46-116); Anion Gap 7.8 mmol/L (3-11); BUN 16 mg/dL (7-18); Bilirubin, Total 0.5 mg/dL (0.2-1.0); CO2 26.2 mmol/L (21.0-32.0); CREATININE 0.8 mg/dL (0.55-1.02); Chloride 106 mmol/L (98-107); Estimated GFR 86.96 (mL/min/1.73m2); Glucose 94 mg/dL (74-106); Sodium 140 mmol/L (136-145); Total Protein 7.2 g/dL (6.4-8.2)
== END 2023-04-23 08:03 | disposition home or self-care (01) ==
LOC: LBO 08:03
PROVIDERS: PCP Nurse Practitioner Family; Visit Provider Nurse Practitioner Family
DX: N95.1 Menopausal and female climacteric states (principal); I10 Essential (primary) hypertension; I48.0 Paroxysmal atrial fibrillation; Z00.00 Encounter for general adult medical examination without abnormal findings
CPT/HCPCS: 36415; 80053; 83036; 85025

== ENCOUNTER → 2023-06-07 02:09 | Outpatient (CLI) | payer OTHER, SELFPAY ==
--- NOTE | 2023-06-07 08:56 | DI.US_ITS ---
Exam(s) US BREAST LT COMPLETE US BREAST RT COMPLETE MG MAMMO DIAGNOSTIC BI EXAM: MG MAMMO DIAGNOSTIC BI AND BILATERAL COMPLETE BREAST ULTRASOUND CLINICAL HISTORY: 6 month follow up,abnl mammo,r92.8,z09,bilat findings. TECHNIQUE: BILATERAL CC AND MLO mammographic images were obtained with 3D tomosynthesis technique an d utilizing computer aided detection (CAD). ADDITIONAL SPOT COMPRESSION VIEW OF THE LEFT BREAST WAS ALSO PERFORMED. BILATERAL COMPLETE BREAST ULTRASOUND was performed including all 4 quadrants of both breasts as well as the axillary regions of both breasts. COMPARISON: Prior mammograms were reviewed, the most recent being March 2022. Prior ultrasound ex aminations were reviewed, most recent being November 2022.. FINDINGS: DIAGNOSTIC BILATERAL MAMMOGRAM: Towards the lateral aspect of the left breast on the CC view there is a small nodular density. We pe rformed additional spot compression view and this appears to dissipate this asymmetric density. Small nodular density laterally in the right breast is unchanged from prior mammograms. There are no new spiculated masses nor malignant-appearing microcalcification groups in either breast . No new architectural distortion or skin thickening-traction. BILATERAL COMPLETE BREAST ULTRASOUND: Left breast ultrasound: Again noted is a solitary benign-appearing finding at the 1 o'clock position which is unchanged in si ze and configuration measuring 6 x 3 mm, wider than taller and possibly hemorrhagic microcyst or smal l fibroadenoma. Again this remains unchanged. There are no new focal ultrasound findings in all 4 quadrants of the left breast and scanning of the left axilla is negative for adenopathy. Right breast ultrasound: At the 2 o'clock position there is an unchanged 5 millimeter hemorrhagic microcyst. At the 7 o'clock position there is a small hemorrhagic microcyst measuring 5 by 3 mm, unchanged. At the 9 o'clock position there are stable benign-appearing findings as previously discussed. At the 10 o'clock position there is a the 6 x 3 mm benign microcyst again noted, unchanged. There are no new focal significant ultrasound findings in all 4 quadrants. Scanning of the right axilla is negative for significant adenopathy. IMPRESSION: 1. No mammographic evidence of malignancy. 2. Continued stable appearance of benign-appearing bilateral ultrasound findings as detailed individ diallollannita above. Appropriate follow-up is to keep this patient on a yearly mammogram schedule with earlier imaging if a self detected breast change is noted. Recommend repeat bilateral breast ultrasound at time for nex t yearly mammogram.. The patient was informed of the findings and follow-up recommendations prior to leaving the [facility] unit today. BI-RADS Category 2 - Benign Findings Breast Density - Category C - Heterogeneously dense Breast density Category C or D implies that the patient has dense breast tissue. Dense breast tissue can make it harder to find cancer on a mammogram. Dense breast tissue is also associated with an incr eased risk of breast cancer. This information about the result of the mammogram report was provided to the patient to raise their awareness. Use this report when you speak with the patient about their risks for breast cancer, which includes their family history. At that time, you may recommend additional screening tests (Ultrasoun d or MRI) as these tests may add significant information. A negative radiographic report should not delay biopsy if a dominant or clinically suspicious mass is present. Up to ten percent of cancers are not identified on mammography. A negative report may reinforce clinical impression. Adenosis and dense breasts may obscure an underlying neoplasm. False positive reports average 6 to 10%. Patient will receive a letter notifying them of these results.
== END ==
PROVIDERS: PCP Nurse Practitioner Family; Visit Provider Family Medicine
DX: Z09 Encounter for follow-up examination after completed treatment for conditions other than malignant neoplasm (principal); R92.8 Other abnormal and inconclusive findings on diagnostic imaging of breast
CPT/HCPCS: 76642; 77062; 77066; G0279

== ENCOUNTER 2023-07-27 11:49 | Outpatient (CLI) | payer OTHER, SELFPAY ==
[2023-07-27 11:57] LABS: ALT 33 U/L (14-59); AST 24 U/L (15-37); Albumin 4.4 g/dL (3.4-5.0); Alkaline Phosphatase 42 U/L (46-116); Anion Gap 10.7 mmol/L (3-11); BUN 10 mg/dL (7-18); Bilirubin, Total 0.6 mg/dL (0.2-1.0); CO2 25.3 mmol/L (21.0-32.0); CREATININE 0.9 mg/dL (0.55-1.02); Calcium 9.1 mg/dL (8.5-10.1); Chloride 104 mmol/L (98-107); Glucose 94 mg/dL (74-106); Potassium 4.2 mmol/L (3.5-5.1); Sodium 140 mmol/L (136-145); Total Protein 7.2 g/dL (6.4-8.2)
== END 2023-07-27 11:50 | disposition home or self-care (01) ==
LOC: LBO 11:50
PROVIDERS: PCP Nurse Practitioner Family; Visit Provider Obstetrics & Gynecology
DX: N95.1 Menopausal and female climacteric states (principal)
CPT/HCPCS: 36415; 80053

== ENCOUNTER 2024-03-14 10:08 | Outpatient (REF) | payer OTHER, SELFPAY ==
--- NOTE | 2024-03-14 10:30 | SKI_PTH ---
PATIENT: Kaitlynn Turcios LOC: [facility] U#:[id number] AGE/SX: 54/F ROOM: RE03/14/[address]: Chin Granados MD : 1970 BED: DIS: 03/14/2024 SPEC #: [id number] RECD: 03/14/24 12:39 STATUS: TAYLOR REQ #: [id number] CHEY: 03/14/24 10:[address]: Chin Granados DEPT: Surgical Specimen RECD BY: Azeb Colbert ENTERED: 03/14/24 12:40 SP TYPE: LUZ WALLER DR: Katiana Todd, HATCHERY MANAGER Tissues: 1 - SKIN BIOPSY(SHAVE/PUNCH) Procedures: SKIN LEVEL 4 Comments: [id number]
== END 2024-03-14 10:09 | disposition home or self-care (01) ==
LOC: LBN 10:08
PROVIDERS: PCP Nurse Practitioner Family; Referring Provider Surgery; Visit Provider Surgery
DX: D23.9 Other benign neoplasm of skin, unspecified (principal)
CPT/HCPCS: 88305

== ENCOUNTER 2024-06-08 01:34 | Outpatient (CLI) | payer OTHER, SELFPAY ==
[2024-06-08 09:18] LABS: ALT 21 U/L (14-59); AST 33 U/L (15-37); Alkaline Phosphatase 48 U/L (46-116); Anion Gap 7.1 mmol/L (3-11); BUN 22 mg/dL (7-18); Bilirubin, Total 0.7 mg/dL (0.2-1.0); CO2 28.9 mmol/L (21.0-32.0); CREATININE 0.8 mg/dL (0.55-1.02); Calcium 9.7 mg/dL (8.5-10.1); Chloride 105 mmol/L (98-107); Estimated GFR 86.42 (mL/min/1.73m2); Glucose 82 mg/dL (74-106); Sodium 141 mmol/L (136-145); Total Protein 7.6 g/dL (6.4-8.2)
== END 2024-06-08 01:35 | disposition home or self-care (01) ==
PROVIDERS: PCP Nurse Practitioner Family; Visit Provider Nurse Practitioner Family
DX: Z00.00 Encounter for general adult medical examination without abnormal findings (principal); I10 Essential (primary) hypertension; I48.0 Paroxysmal atrial fibrillation
CPT/HCPCS: 36415; 80053

== ENCOUNTER 2024-06-13 00:35 | Outpatient (CLI) | payer OTHER, SELFPAY ==
--- NOTE | 2024-06-13 06:15 | DI.US_ITS ---
Exam(s) US BREAST LT COMPLETE US BREAST RT COMPLETE MG MAMMO SCREENING EXAM: MG MAMMO SCREENING AND BILATERAL COMPLETE BREAST ULTRASOUND CLINICAL HISTORY: screening,z12.39. TECHNIQUE: Bilateral full field digital CC and MLO mammographic images were obtained with 3D tomosyn thesis and utilizing computer aided detection (CAD). Bilateral complete breast ultrasound was performed including all 4 quadrants of both breasts as well as both axillary regions. COMPARISON: Prior mammograms were reviewed. Prior ultrasound also reviewed FINDINGS: SCREENING MAMMOGRAM: The fibroglandular tissue is again noted to be moderately dense. Small nodular density upper outer quadrant of the right breast is unchanged from prior studies. Prob ably benign lymph node There are no new spiculated masses nor new malignant appearing microcalcification groups. There is no significant architectural distortion nor skin thickening-retraction. BILATERAL COMPLETE BREAST ULTRASOUND: Left breast ultrasound: Previously described finding at the 1 o'clock position is again noted and has appearance of a small b enign microcysts. At the 2 o'clock position there is a finding which is wider than taller measuring 6 x 3 mm, not previ ously evident. This is probably hemorrhagic microcyst. Can be followed in 6 months. There are no other focal ultrasound findings in all 4 quadrants. Scanning of the left axilla is negative for significant adenopathy. Right breast ultrasound: At the 2 o'clock position there is an unchanged 5 mm hemorrhagic microcyst. At the 6 o'clock position there is a new finding measuring 6 x 4 mm. It is difficult to determine if this is a hemorrhagic cyst or small 3 x 2 mm microcyst adjacent to fibroglandular tissue. Can be fo llowed in 6 months. At the 7 o'clock position there is an unchanged 5 x 3 mm hemorrhagic microcyst. At the 10 o'clock position there is an unchanged 6 x 3 mm hemorrhagic microcyst. Scanning of the right axilla is negative for significant adenopathy. IMPRESSION: 1. No mammographic evidence of malignancy. 2. Bilateral ultrasound findings as above which are stable. However, there is a single new presentl y benign-appearing finding in each breast, this at the 2 o'clock position of the left breast and 6 o' clock position of the right breast. 3. Appropriate follow-up is repeat bilateral breast ultrasound in 6 months. The above described fin dings on ultrasound are hidden subjacent to her dense fibroglandular tissue on mammography. I do not feel that repeat mammogram in 6 months is required; only repeat bilateral complete breast ultrasound . Findings are recommendations were discussed by myself with the patient today. BI-RADS Category 3 - 6 month - Probably Benign Finding: Recommend follow-up ULTRASOUND BILATERAL in 6 months Breast Density - Category C - Heterogeneously dense Breast density Category C or D implies that the patient has dense breast tissue. Dense breast tissue can make it harder to find cancer on a mammogram. Dense breast tissue is also associated with an incr eased risk of breast cancer. This information about the result of the mammogram report was provided to the patient to raise their awareness. Use this report when you speak with the patient about their risks for breast cancer, which includes their family history. At that time, you may recommend additional screening tests (Ultrasoun d or MRI) as these tests may add significant information. A negative radiographic report should not delay biopsy if a dominant or clinically suspicious mass is present. Up to ten percent of cancers are not identified on mammography. A negative report may reinforce clinical impression. Adenosis and dense breasts may obscure an underlying neoplasm. False positive reports average 6 to 10%. Patient will receive a letter notifying them of these results.
== END 2024-06-13 00:55 ==
LOC: DI 00:35
PROVIDERS: PCP Nurse Practitioner Family; Visit Provider Nurse Practitioner Family
DX: Z12.31 Encounter for screening mammogram for malignant neoplasm of breast (principal); R92.8 Other abnormal and inconclusive findings on diagnostic imaging of breast; R92.333 Mammographic heterogeneous density, bilateral breasts; D24.1 Benign neoplasm of right breast; D24.2 Benign neoplasm of left breast
CPT/HCPCS: 76642; 77063; 77067

== ENCOUNTER 2024-07-29 08:25 | Emergency (ER) | payer OTHER, SELFPAY ==
[2024-07-29 08:28] VITALS: BP 169/98; PULSE 65; RESP 16; TEMP 36.5; O2SAT 99
--- NOTE | 2024-07-29 08:30 | DI.US_ITS ---
Exam(s) US LOWER EXTREMITY VENOUS RT EXAM: US LOWER EXTREMITY VENOUS RT CLINICAL HISTORY: RLE pain TECHNIQUE: Grayscale, color, and doppler imaging of the deep venous system of the right lower extrem ity was performed. COMPARISON: US US BREAST LT COMPLETE from 06/13/2024 FINDINGS: There is no evidence of intraluminal thrombus and there is normal compression and augmentation demons trated within the common femoral vein, femoral vein, and popliteal vein. In the ipsilateral calf the interrogated veins also exhibit normal compression/ augmentation properti es. The ipsilateral saphenofemoral junction is patent. IMPRESSION: 1. No evidence of DVT in the right lower extremity. DATA REPOSITORY:
--- NOTE | 2024-07-29 08:54 | ED.GENADUL_ITS ---
Discharge Plan Disposition Patient Disposition: Home Condition: Stable Discharge Details Clinical Impression: Sciatica of right side Primary Care Provider: Katiana Todd ED Provider: Genevieve Mckeon Home Meds and New Rx's Prescriptions: New cyclobenzaprine 10 mg tablet 10 mg PO TID PRN (Reason: muscle spasm) Qty: 10 0RF Rx Instructions: Take 1 tablet 3 times daily as needed Continued naproxen sodium [Aleve] 220 mg capsule 220 mg PO BID PRN Patient Comments: 2 in the morning and occasionally 2 in the evening hydroxychloroquine 300 mg tablet 300 mg PO DAILY atenolol 50 mg tablet 50 mg PO DAILY Qty: 90 4RF Rx Instructions: Take 1 tab PO daily for atrial fibrillation estradiol 0.5 mg tablet 0.5 mg PO DAILY Qty: 30 3RF omeprazole 20 mg capsule,delayed release(DR/EC) 20 mg PO DAILY Qty: 90 4RF lisinopril 10 mg tablet 10 mg PO DAILY Qty: 90 3RF finasteride [Propecia] 1 mg tablet 2 mg PO DAILY Qty: 180 5RF Veozah 45 mg tablet 45 mg PO DAILY Qty: 90 3RF estradiol 0.0375 mg/24 hr patch semiweekly 1 patch transdermal ONCE Qty: 24 1RF Rx Instructions: apply 0.0375 mg patch 2x/wk Discharge Instructions Instructions: Sciatica Exercises, Sciatica ED Additional Instructions: Negative ultrasound for DVT today. I do suspect that this is sciatica type pain or musculoskeletal. Please alternate ice and heat. Try massage. Take the muscle relaxers as directed. Please take Tylenol or Ibuprofen with food every 4-6 hours as needed for pain and swelling. Follow up with primary care provider in 3-5 days. Return to ED sooner if any worsening or concerns. Thank you for allowing us to care for you today. Referrals: Katiana Todd NP [Primary Care Provider] - 5 days Discharge Data Discharge Date/Time-TO BE ENTERED AT DEPARTURE: 07/29/24 10:09 HPI General Mode of arrival: ambulatory . Date/Time Provider Initiated Documentation: 07/29/24 08:27 . Limitations to Documentation: no limitations . Information obtained by: patient, RN notes reviewed and old records reviewed . HPI Narrative: 54-year-old female presents to the ER with chief complaint of right leg pain worse over the last 1 to 2 days. She reports approximately a month ago she strained her left lower back. She reports over the last few days she noticed some sciatica type symptoms into her right thigh. Now pain is worse in her right calf she rates it as 6 out of 10. No erythema or swelling. No significant trauma. She does take hormone replacement therapy. She does stand for long periods of time she is a non-smoker. She has a past medical history of hypertension, GERD, A-fib, history of total right knee replacement, hysterectomy diverticulosis kidney stones and pseudogout. Related Data Home Medications ?Medication ?Instructions ?Recorded ?Confirmed hydroxychloroquine 300 mg tablet 300 mg PO DAILY 02/05/22 07/29/24 naproxen sodium 220 mg capsule 220 mg PO BID PRN 04/03/22 07/29/24 (Aleve) omeprazole 20 mg capsule,delayed 20 mg PO DAILY #90 caps 01/19/24 07/29/24 release lisinopril 10 mg tablet 10 mg PO DAILY #90 tabs 03/06/24 07/29/24 atenolol 50 mg tablet 50 mg PO DAILY #90 tabs 05/02/24 07/29/24 estradiol 0.5 mg tablet 0.5 mg PO DAILY #30 tabs 05/02/24 07/29/24 finasteride 1 mg tablet (Propecia) 2 mg (2 x 1 mg) PO DAILY #180 tabs 05/24/24 07/29/24 fezolinetant 45 mg tablet (Veozah) 45 mg PO DAILY #90 tabs 06/20/24 07/29/24 estradiol 0.0375 mg/24 hr 1 patch transdermal ONCE #24 ea 07/27/24 07/29/24 semiweekly transdermal patch cyclobenzaprine 10 mg tablet 10 mg PO TID PRN muscle spasm #10 07/29/24 tabs Previous Rx's ?Medication ?Instructions ?Recorded omeprazole 20 mg capsule,delayed 20 mg PO DAILY #90 caps 01/19/24 release lisinopril 10 mg tablet 10 mg PO DAILY #90 tabs 03/06/24 atenolol 50 mg tablet 50 mg PO DAILY #90 tabs 05/02/24 estradiol 0.5 mg tablet 0.5 mg PO DAILY #30 tabs 05/02/24 finasteride 1 mg tablet (Propecia) 2 mg (2 x 1 mg) PO DAILY #180 tabs 05/24/24 fezolinetant 45 mg tablet (Veozah) 45 mg PO DAILY #90 tabs 06/20/24 estradiol 0.0375 mg/24 hr 1 patch transdermal ONCE #24 ea 07/27/24 semiweekly transdermal patch cyclobenzaprine 10 mg tablet 10 mg PO TID PRN muscle spasm #10 07/29/24 tabs Allergies Allergy/AdvReac Type Severity Reaction Status Date / Time No Known Allergies Allergy Unverified 07/29/24 08:31 General Stated Complaint: Vascular [place]: 3 Review of Systems All systems reviewed & are unremarkable except as noted in HPI and below Exam Narrative Exam Narrative: Constitutional: Alert and oriented x3. Appears stated age. Normal body habitus. Head: Normocephalic, no trauma. Eyes: Pupils PERRL, Red reflex noted, EOM's intact. Eyelids symmetrical without lesions, discharge, or swelling. ENT: Bilateral TM's WNL, External ear normal to inspection, no mastoid TTP, swelling, or erythema, Nasal turbinates WNL, no nasal discharge. Normal dentition, Posterior pharynx WNL, no exudate. Chest: RRR, Normal S1, S2, distal pulses intact. Resp: Lungs clear to auscultation bilaterally, no wheezes, rales, or rhonchi. Abdomen: Soft, non-distended, Normoactive bowel sounds all 4 quads. Musculoskeletal: Normal gait, Moves all 4 extremities without difficulty. Skin: No suspicious rashes or lesions. Capillary refill less than 2 sec. Neurologic: Cranial nerves II-XII intact. Alert and oriented x 3. Motor: No deficits noted. Sensory: Intact bilaterally all 4 extremities. Hematologic/Lymphatic: No ecchymosis, no lymphadenopathy. Course Vital Signs Vital signs: Vital Signs Temperature 36.5 C 07/29/24 08:28 Pulse 65 07/29/24 08:28 Respiratory Rate 16 07/29/24 08:28 Blood Pressure 169/98 H 07/29/24 08:28 Pulse Oximetry 99 07/29/24 08:28 Temperature 36.5 C 07/29/24 08:28 Pulse 65 07/29/24 08:28 Respiratory Rate 16 07/29/24 08:28 Respiratory Effort Normal 07/29/24 08:40 Blood Pressure 169/98 H 07/29/24 08:28 Pulse Oximetry 99 07/29/24 08:28 Pain Level 6 07/29/24 08:40 Medical Decision Making 54-year-old female presents to the ER with chief complaint of right leg pain worse over the last 1 to 2 days. She reports approximately a month ago she strained her left lower back. She reports over the last few days she noticed some sciatica type symptoms into her right thigh. Now pain is worse in her right calf she rates it as 6 out of 10. No erythema or swelling. No significant trauma. She does take hormone replacement therapy. She does stand for long periods of time she is a non-smoker. She has a past medical history of hypertension, GERD, A-fib, history of total right knee replacement, hysterectomy diverticulosis kidney stones and pseudogout. Negative ultrasound for DVT. Patient was given a gram of Tylenol and Flexeril. Prescription for Flexeril was given, instructed on home care alternating ice and heat and follow-up care strict return instructions verbalized understanding. This text was generated using [employer] system, please disregard any oddities of phrase or misspellings. 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 Medical History Hx of pseudogout dx 09/10 Left ureteral stone Right distal ureteral calculus Diverticulosis Vertigo Occasional symptoms 2 episodes that sought treatment for, started when had hyperparathyroidism Surgical History Status post hysterectomy for endometriosis in uterus Trigger finger, right middle finger S/P Release: 01/14/2021 History of total right knee replacement (TKR) Parathyroid adenoma S/P resection 2002 History of breast biopsy Benign biopsies 3 since the age of 14 yo Status post arthroscopic surgery of left knee partial medial mensicectomy 2000 Status post right rotator cuff repair Distal clavicle excision 2013 S/P colonoscopy (~02/01/18) screening colonoscopy with 10 year recall. Family History Mother Hypertension Osteoarthritis Father Unknown family medical history Alcohol abuse Sister Osteoarthritis S/p TKA in late 40s Son No problems noted. Daughter No problems noted. Social History Smoking/Tobacco Use Status: Never Second Hand Exposure: No Smoking risk assessment performed?: Yes Alcohol Intake: current Alcohol Intake frequency: a few times a week Alcohol type: hard liquor Drug use: Never Substance use type: does not use Caregiver/Support person: No Household members: spouse Housing: house Number of Children: 2 number of grandchildren: 5 Communication Needs: None Do you need help understanding health information?: Never current occupation: [employer] at [employer] Pets and animals: No Sexually active: Yes Do you think of yourself as: straight/heterosexual Current gender identity: female What is your relationship status?: How often do you talk on the phone with friends or family?: decline to answer How often do you get together with friends or relatives?: decline to answer How often do you attend roman catholic or mormon services?: decline to answer Do you belong to any clubs or organized social groups?: decline to answer Panel score (0-1 are the most socially isolated patients): 1 What type of physical activity do you participate in: walking and weight lifting Duration: 45-60 minutes/day Frequency: 3-4 times per week Manisha/Tenriism: None Special manisha needs: No Seatbelt use: always Drive intox or ride w/intox student 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: No Do you feel safe at home: Yes Do you feel safe in your relationship?: Yes Victim of physical abuse: No Victim of emotional abuse: Yes Victim of sexual abuse: No Would you like helpful sources: No PAWSS Have you Been Recently Intoxicated or Drunk Within the Last 30 days?: No Have you Ever Experienced Previous Episodes of Alcohol Withdrawal?: No Have you ever Experienced Withdrawal Seizures?: No Have you ever Experienced Delirium Tremens(DT)s?: No Have you ever undergone Alcohol Rehabilitation Treatment (i.e, inpt ot out patient treatment programs)?: No Have you ever Experienced Blackouts?: No Have you ever Combined Alcohol with other Downers within the last 90 days?: No Have you ever Combined Alcohol with any other Substance of Abuse during the last 90 days?: No Positive Blood Alcohol level on Presentation? [PCS.BAL]: No Evidence of Increased Autonomic Activity (i.e. HR>120, tremor, sweating, agitation, nausea)?: No Result: 0
[2024-07-29] MEDS: Acetaminophen 500 MG TAB 1000 MG PO (09:11)
[2024-07-29] MEDS: Cyclobenzaprine 10 MG TAB PO (09:11)
[2024-07-29 10:02] VITALS: BP 120/82; PULSE 53; O2SAT 100
--- NOTE | 2024-07-29 10:07 | DI.VRAD_ITS ---
PROCEDURE INFORMATION: Exam: US Duplex Right Lower Extremity Veins, Limited Exam date and time: 07/29/2024 9:31 AM Age: 54 years old Clinical indication: Condition or disease; Other: Pain TECHNIQUE: Imaging protocol: Real-time duplex ultrasound of the right extremity with 2-D cross scale, color Doppler flow and spectral waveform analysis including responses to compression and other maneuvers (when performed) with image documentation. Limited exam was focused on the right lower extremity veins. COMPARISON: MR lower joint RT wo 11/23/2017 3:52 PM FINDINGS: Right deep veins: Unremarkable. The common femoral, femoral, proximal profunda femoral and popliteal veins are patent without thrombus. Normal Doppler waveforms. Normal compressibility and/or augmentation response. Superficial veins: Greater saphenous vein at the saphenofemoral junction is patent without thrombus. Soft tissues: Unremarkable. IMPRESSION: No evidence of deep vein thrombosis. Dictated and Authenticated by: Delta Leon MD. Orderin Linda Vallejo MD
== END 2024-07-29 10:09 | disposition home or self-care (01) ==
PROVIDERS: Emergency Provider Registered Nurse Emergency; PCP Nurse Practitioner Family
DX: M54.31 Sciatica, right side (principal)
CPT/HCPCS: 99283; 99284; 93971